=== PATIENT | male | born 1930 | race Caucasian/White ===

== ENCOUNTER 2017-03-08 20:26 | Inpatient (IN) ==
--- OUTSIDE RECORDS SUMMARY | 2017-03-08 20:49 | External Medical Summary | Referral Summary ---
:1930 Author Organization [facility], [address] [place] [id number] Care Team Providers Name Role Phone Niranjan García Primary Care Physician Encounter VC Date(s): 01/27/16 - 01/27/16 [facility] [address] [place] [phone] [place] Discharge Disposition: 01-Home or Self Care Attending Physician: Niranjan García MD Admitting Physician: Niranjan García MD Vital Signs Most recent to oldest [Reference Range]: 1 Temperature Tympanic [36.6-38.1 degC] 37.5 degC (01/27/16 2:15 PM) Peripheral Pulse Rate [60-100 bpm] 84 bpm (01/27/16 2:15 PM) Blood Pressure [90-140/60-90 mmHg] 150/84 mmHg *HI* (01/27/16 2:15 PM) Problem List Condition Effective Dates Status Health Status Informant Actinic keratoses(Confirmed) Active Ataxic gait(Confirmed) Active Basal cell carcinoma of Active skin(Confirmed) Benign hypertension(Confirmed) Active BPPV (benign paroxysmal positional Active vertigo)(Confirmed) Contusion of head(Confirmed) Active CAD(Confirmed) Resolved Carotid artery stenosis(Confirmed) Active Chicken pox(Confirmed) Active Daily headache(Confirmed) Active Chronic lymphocytic Active leukemia(Confirmed) CLL(Confirmed) Active Ear infection(Confirmed) Active Hearing loss(Confirmed) Active High cholesterol(Confirmed) Active Leukemia(Confirmed) Active Overweight(Confirmed) Active Neuropathy, peripheral(Confirmed) Active Primary Active hypercholesterolemia(Confirmed) Chronic lumbar Active radiculopathy(Confirmed) Rheumatoid arthritis(Confirmed) Active Scarlet fever(Confirmed) Active Skin nodule(Confirmed) Active Lumbar spinal stenosis(Confirmed) Active Primary skin squamous cell Active carcinoma(Confirmed) Visit for suture removal(Confirmed) Active TMJ syndrome(Confirmed) Active Allergies, Adverse Reactions, Alerts Substance Reaction Severity Status amoxicillin DIZZY, WEAK, BLURRED VISION Active azithromycin DIZZY, DIARRHEA Active cefTRIAXone weak and shaky Active ciprofloxacin DIZZY/ HEADACHE Active meperidine HTN Active naproxen dizzy Active nitrofurantoin CHILLS, NAUSEA, GI UPSET Active omeprazole INDIGESTION, DIZZY Active piroxicam DISTORTED Active pravastatin WEAK, DIZZY, SWEATY Active sulfamethoxazole DIZZY, HEADACHE Active Tussionex [employer] Active Medications Centrum Silver 1 tablet, Oral, Daily, 0 Refill(s) Start Date: 10/23/13 Status: Orderedfamotidine 20 mg oral tablet 20 mg 1 tabs, Oral, BID, # 60 tabs, 5 Refill(s), Pharmacy: [id number], 1 tabs Oral BID Start Date: 01/27/16 Status: OrderedMisc Medication Daily, Cholestoff, 0 Refill(s) Start Date: 07/27/14 Status: Ordered Results Hematology Most recent to oldest [Reference Range]: 1 WBC [4.8-10.8 10*3/uL] 13.4 10*3/uL *HI* (01/27/16 2:49 PM) RBC [4.60-6.20] 4.63 (01/27/16 2:49 PM) Hgb [14.0-18.0 gm/dL] 15.9 gm/dL (01/27/16 2:49 PM) Hct [42.0-52.0 %] 46.0 % (01/27/16 2:49 PM) MCV [82.0-99.0 fL] 99.4 fL *HI* (01/27/16 2:49 PM) MCH [27.0-32.0 pg] 34.3 pg *HI* (01/27/16 2:49 PM) MCHC [32.0-36.0 gm/dL] 34.6 gm/dL (01/27/16 2:49 PM) RDW [11.5-14.5 %] 13.6 % (01/27/16 2:49 PM) Platelet [150-400 10*3/uL] 163 10*3/uL (01/27/16 2:49 PM) MPV [8.8-14.8 fL] 10.5 fL (01/27/16 2:49 PM) Neutrophils [51-75 %] 20 % *LOW* (01/27/16 2:49 PM) Lymphocytes [20-46 %] 74 % *HI* (01/27/16 2:49 PM) Monocytes [4-11 %] 6 % (01/27/16 2:49 PM) Eosinophils [0-4 %] 0 % (01/27/16 2:49 PM) Basophils [0-2 %] 0 % (01/27/16 2:49 PM) Neutro Absolute [1.90-7.00 10*3] 2.68 10*3 (01/27/16 2:49 PM) Lymph Absolute [0.80-3.30 10*3] 9.92 10*3 *HI* (01/27/16 2:49 PM) [place] Absolute [0.30-1.00 10*3] 0.80 10*3 (01/27/16 2:49 PM) Eos Absolute [0.00-0.50 10*3] 0.00 10*3 (01/27/16 2:49 PM) Baso Absolute [0.00-0.20 10*3] 0.00 10*3 (01/27/16 2:49 PM) Differential Manual *ABN* (01/27/16 2:49 PM) Chemistry Most recent to oldest [Reference Range]: 1 Sodium Lvl [135-144 mEq/L] 141 mEq/L (01/27/16 2:49 PM) Potassium Lvl [3.5-5.2 mEq/L] 4.9 mEq/L (01/27/16 2:49 PM) Chloride [99-111 mEq/L] 105 mEq/L (01/27/16 2:49 PM) CO2 [23-31 mEq/L] 29 mEq/L (01/27/16 2:49 PM) AGAP [3-20] 7 (01/27/16 2:49 PM) BUN [8-26 mg/dL] 19 mg/dL (01/27/16 2:49 PM) Glucose Lvl [70-99 mg/dL] 107 mg/dL *HI* (01/27/16 2:49 PM) Creatinine Lvl [0.72-1.25 mg/dL] 0.95 mg/dL (01/27/16 2:49 PM) eGFR [>60 mL/min] >60 mL/min 1 (01/27/16 2:49 PM) Calcium Lvl [8.9-10.5 mg/dL] 9.3 mg/dL (01/27/16 2:49 PM) Albumin Lvl [3.4-4.8 gm/dL] 4.1 gm/dL (01/27/16 2:49 PM) Total Protein [6.0-7.6 gm/dL] 6.3 gm/dL (01/27/16 2:49 PM) Globulin [1.8-4.0 gm/dL] 2.2 gm/dL (01/27/16 2:49 PM) ALT [0-55 U/L] 13 U/L (01/27/16 2:49 PM) AST [5-34 U/L] 15 U/L (01/27/16 2:49 PM) Alk Phos [40-150 U/L] 94 U/L (01/27/16 2:49 PM) Bili Total [0.2-1.2 mg/dL] 0.4 mg/dL (01/27/16 2:49 PM) Lipase Lvl [8-78 U/L] 13 U/L (01/27/16 2:49 PM) Amylase Lvl [20-160 U/L] 129 U/L (01/27/16 2:49 PM) 1Result Comment: Multiply eGFR results by 1.21 for race.Urinalysis Most recent to oldest [Reference Range]: 1 UA Color Yellow (01/27/16 2:54 PM) UA Appear Clear (01/27/16 2:54 PM) UA pH [5.0-8.0] 6.0 (01/27/16 2:54 PM) UA Leuk Est [Negative] Negative (01/27/16 2:54 PM) UA Nitrite [Negative] Negative (01/27/16 2:54 PM) UA Protein [Negative] Negative (01/27/16 2:54 PM) UA Glucose [Negative] Negative (01/27/16 2:54 PM) UA Ketones [Negative] Trace *ABN* (01/27/16 2:54 PM) UA Urobilinogen [<1.0 mg/dL] 0.2 mg/dL (01/27/16 2:54 PM) UA Bili [Negative] Negative (01/27/16 2:54 PM) UA Blood [Negative] Negative (01/27/16 2:54 PM) UA Spec Grav [1.003-1.030] 1.027 (01/27/16 2:54 PM) Type Clean Catch (01/27/16 2:54 PM) Immunizations Vaccine Date Refusal Reason influenza virus vaccine, inactivated 03/30/15 influenza virus vaccine, inactivated 02/16/14 influenza virus vaccine, live 03/04/13 pneumococcal 13-valent conjugate vaccine 04/28/14 pneumococcal 23-polyvalent vaccine 12/16/08 pneumococcal 23-polyvalent vaccine 06/22/97 tetanus toxoid 10/29/13 tetanus-diphth toxoids (Td) adult/adol 09/30/03 Procedures Procedure Date Related Diagnosis Body Site Low back pain 2011 Spinal stenosis 2011 L3-4 TRANSLAMINAR 03/28/11 CYSTO, URETHRAL ZULEMA/DIL GYDRODISTENTION OF 09/06/09 BLADDER (see conversion doc) Cataract extraction1 2004 Hospital admission for renal contusion 2004 Hospital admission for brown recluse bite 2003 Skin graft to the left thigh 2003 CABG - Coronary artery bypass graft2 2001 Hospital admission for BPPV 2002 Hospital admission for dehydration 2001 repeat TURP - Redo transurethral resection of 2000 prostate Urethral stent inserted 1997 Cholecystectomy 1995 Scar tissue removed from uretha 1991 Cervical laminectomy 1987 TURP - Redo transurethral resection of prostate 1988 Back surgery 1959 tonsillectomy 1935 Cystoscopies and dilatations 1OU, with [id number] bypass Social History Social History Type Response Smoking Status Former smoker; Tobacco use per day: Pack; Number of years: 101 1Quit in 1951 Assessment and Plan Extracted from: Title: Ambulatory Patient Education Author: Niranjan García MD Date: 01/27/16 Surgery Abdominal Pain, Adult Many things can cause belly (abdominal) pain. Most times, the belly pain is not dangerous. Many cases of belly pain can be watched and treated at home. HOME CARE Do not take medicines that help you go poop (laxatives) unless told to by your doctor. Only take medicine as told by your doctor. Eat or drink as told by your doctor. Your doctor will tell you if you should be on a special diet. GET HELP IF: You do not know what is causing your belly pain. You have belly pain while you are sick to your stomach (nauseous) or have runny poop (diarrhea). You have pain while you pee or poop. Your belly pain wakes you up at night. You have belly pain that gets worse or better when you eat. You have belly pain that gets worse when you eat fatty foods. You have a fever. GET HELP RIGHT AWAY IF: The pain does not go away within 2 hours. You keep throwing up (vomiting). The pain changes and is only in the right or left part of the belly. You have bloody or tarry looking poop. MAKE SURE YOU: Understand these instructions. Will watch your condition. Will get help right away if you are not doing well or get worse. This information is not intended to replace advice given to you by your health care provider. Make sure you discuss any questions you have with your health care provider. Document Released: 10/23/2008 Document Revised: 05/28/2015 Document Reviewed: 01/14/2014 [employer] Patient Information 2016 [employer] [facility]. No follow up information was provided. Extracted from: Title: belly pain Author: Niranjan García MD Date: 01/27/16 Impression and Plan Diagnosis Chronic lymphocytic leukemia (REW42-KP C91.10, Working, Medical). Coronary artery disease (QQL67-BH I25.10, Working, Medical). Benign hypertension (TCN61-XS I10, Working, Medical). Lumbar spinal stenosis (EMF20-BL M48.06, Working, Medical). Primary hypercholesterolemia (ZWK09-EV E78.0, Working, Medical). Neuropathy, peripheral (RHD16-WT G62.9, Working, Medical). Abdominal pain (CZK58-NB R10.13, Working, Medical). Fatigue (CXD51-PI R53.83, Working, Medical). Plan: 1) Stop the Naproxen. 2) Stop the aspirin until your belly pain is all better. 3) See me back in one month and as needed. 4) Lab today. 5) Take Famotidine twice a day as prescribed.. Orders Orders (Selected) Outpatient Orders Ordered Office Visit Level 4 Est 85400: Future (On Hold) Amylase Level: CBC w/ Differential: CMP: Lipase Level: Routine Urinalysis: Prescriptions Prescribed famotidine 20 mg oral tablet: 20 mg=1 tabs, Oral, BID, 60 tabs, 5 Refill(s). Dx/Order Association Plan: Diagnosis: Abdominal pain Comment: Ordered: Office Visit Level 4 Est 70594; 01/27/16 14:30:00 CDT, Abdominal pain | Chronic lymphocytic leukemia | Fatigue | Coronary artery disease | Lumbar spinal stenosis | Neuropathy, peripheral | Primary hypercholesterolemia Diagnosis: Benign hypertension Comment: Diagnosis: Chronic lymphocytic leukemia Comment: Ordered: Office Visit Level 4 Est 22616; 01/27/16 14:30:00 CDT, Abdominal pain | Chronic lymphocytic leukemia | Fatigue | Coronary artery disease | Lumbar spinal stenosis | Neuropathy, peripheral | Primary hypercholesterolemia Diagnosis: Coronary artery disease Comment: Ordered: Office Visit Level 4 Est 75989; 01/27/16 14:30:00 CDT, Abdominal pain | Chronic lymphocytic leukemia | Fatigue | Coronary artery disease | Lumbar spinal stenosis | Neuropathy, peripheral | Primary hypercholesterolemia Diagnosis: Fatigue Comment: Ordered: Office Visit Level 4 Est 40741; 01/27/16 14:30:00 CDT, Abdominal pain | Chronic lymphocytic leukemia | Fatigue | Coronary artery disease | Lumbar spinal stenosis | Neuropathy, peripheral | Primary hypercholesterolemia Diagnosis: Lumbar spinal stenosis Comment: Ordered: Office Visit Level 4 Est 24853; 01/27/16 14:30:00 CDT, Abdominal pain | Chronic lymphocytic leukemia | Fatigue | Coronary artery disease | Lumbar spinal stenosis | Neuropathy, peripheral | Primary hypercholesterolemia Diagnosis: Neuropathy, peripheral Comment: Ordered: Office Visit Level 4 Est 79150; 01/27/16 14:30:00 CDT, Abdominal pain | Chronic lymphocytic leukemia | Fatigue | Coronary artery disease | Lumbar spinal stenosis | Neuropathy, peripheral | Primary hypercholesterolemia Diagnosis: Primary hypercholesterolemia Comment: Ordered: Office Visit Level 4 Est 92137; 01/27/16 14:30:00 CDT, Abdominal pain | Chronic lymphocytic leukemia | Fatigue | Coronary artery disease | Lumbar spinal stenosis | Neuropathy, peripheral | Primary hypercholesterolemia Diagnosis: Coronary artery disease Comment: Diagnosis: Primary hypercholesterolemia Comment: Diagnosis: Abdominal pain Comment: Diagnosis: Fatigue Comment: Diagnosis: Abdominal pain Comment: Diagnosis: Chronic lymphocytic leukemia Comment: Diagnosis: Abdominal pain Comment: Diagnosis: Abdominal pain Comment: Diagnosis: Fatigue Comment: Diagnosis: Abdominal pain Comment: Additional Orders: Comment: Ordered: famotidine 20 mg oral tablet,20 mg 1 tabs, Oral, BID, # 60 tabs, 5 Refill(s), Pharmacy: [facility] [id number], 1 tabs Oral BID End of Orders ."
--- OUTSIDE RECORDS SUMMARY | 2017-03-08 20:49 | External Medical Summary | Referral Summary ---
:1930 Author [facility] [address] [place] [address] [place] [address] Care Team Providers Name Role Phone Niranjan García Primary Care Physician Encounter VC Date(s): 01/01/15 - 01/01/15 [facility] [address] [place] [phone] [place] Discharge Disposition: 01-Home or Self Care Attending Physician: Niranjan García MD Admitting Physician: Niranjan García MD Vital Signs Most recent to oldest [Reference Range]: 1 Temperature Tympanic [36.6-38.1 degC] 36.7 degC (01/01/15 3:32 PM) Peripheral Pulse Rate [60-100 bpm] 77 bpm (01/01/15 3:32 PM) Respiratory Rate [14-20 br/min] 18 br/min (01/01/15 3:32 PM) Blood Pressure [90-140/60-90 mmHg] 140/90 mmHg (01/01/15 3:32 PM) SpO2 96 % (01/01/15 3:32 PM) Problem List Condition Effective Dates Status Health Status Informant Actinic keratoses(Confirmed) Active Ataxic gait(Confirmed) Active Basal cell carcinoma of Active skin(Confirmed) Benign hypertension(Confirmed) Active BPPV (benign paroxysmal positional Active vertigo)(Confirmed) Contusion of head(Confirmed) Active CAD(Confirmed) Resolved Carotid artery stenosis(Confirmed) Active Chicken pox(Confirmed) Active Daily headache(Confirmed) Active Chronic lymphocytic Active leukemia(Confirmed) CLL(Confirmed) Active Neuropathy, peripheral(Confirmed) Active Ear infection(Confirmed) Active Hearing loss(Confirmed) Active High cholesterol(Confirmed) Active Leukemia(Confirmed) Active Overweight(Confirmed) Active Primary Active hypercholesterolemia(Confirmed) Chronic lumbar Active [...] DIZZY, HEADACHE Active Tussionex [employer] Active Medications Aleve 220 mg, Oral, Bedtime (once a day), as needed for pain, 0 Refill(s) Start Date: 10/26/14 Status: OrderedAspirin Low Dose 81 mg, Oral, Daily, 0 Refill(s) Start Date: 10/23/13 Status: OrderedCentrum Silver 1 tablet, Oral, Daily, 0 Refill(s) Start Date: 10/23/13 Status: OrderedMisc Medication Daily, Cholestoff, 0 Refill(s) Start Date: 07/27/14 Status: Ordered Results Hematology Most recent to oldest [Reference Range]: 1 Sed Rate [0-15 mm/hr] 7 mm/hr (01/01/15 3:08 PM) Immunizations Vaccine Date Refusal Reason influenza [...] bypass graft2 2001 Hospital admission for BPPV 2001 Hospital admission for dehydration 2001 repeat TURP - Redo transurethral resection of 2000 prostate Urethral stent inserted 1997 Cholecystectomy 1995 Scar tissue removed from uretha 1991 Cervical laminectomy 1987 TURP - Redo transurethral resection of prostate 1988 Back surgery 1959 tonsillectomy 1935 Cystoscopies and dilatations 1OU, with [id number] bypass Social History Social History Type Response Smoking Status Former smoker; Tobacco use per day: Pack; Number of years: 101 1Quit in 1951 Assessment and Plan Extracted from: Title: Ambulatory Patient Education Author: Niranjan García MD Date: 01/01/15 Family Medicine Chronic Lymphocytic Leukemia Chronic lymphocytic leukemia (CLL) is a type of cancer of the bone marrow and blood cells. Bone marrow is the soft, spongy tissue inside your bone. In CLL, the bone marrow makes too many white blood natalie ls that usually fight infection in the body (lymphocytes). CLL usually gets worse slowly and is the most common type of adult leukemia. RISK FACTORS No one knows the exact cause of CLL. There is a higher risk of CLL in people who: Are older than 50 years. Are white. Are male. Have a family history of CLL or other cancers of the lymph system. Are of [place] or [place] descent. Have been exposed to certain chemicals, such as Agent [place] (used in the [place] War) or other herbicides or insecticides. SYMPTOMS At first, there may be no symptoms of chronic lymphocytic leukemia. After a while, some symptoms may occur, such as: Feeling more tired than usual, even after rest. Unplanned weight loss. Heavy sweating at night. Fevers. Shortness of breath. Decreased energy. Paleness. Painless, swollen lymph nodes. A feeling of fullness in the upper left part of the abdomen. Easy bruising or bleeding. More frequent infections. DIAGNOSIS Your health care provider may perform the following exams and tests to diagnose CLL: Physical exam to check for an enlarged spleen, liver, or lymph nodes. Blood and bone marrow tests to identify the presence of cancer cells. These may include tests such as complete blood count, flow cytometry, immunophenotyping, and fluorescence in situ hybridization (FISH). CT scan to look for swelling or abnormalities in your spleen, liver, and lymph nodes. TREATMENT Treatment options for CLL depend on the stage and the presence of symptoms. There are a number of types of treatment used for this condition, including: Observation. Targeted drugs. These are drugs that interfere with chemicals that leukemia cells need in order to grow and multiply. They identify and attack specific cancer cells without harming normal cells. Chemotherapy drugs. These medicines kill cells that are multiplying quickly, such as leukemia cells. Radiation. Surgery to remove the spleen. Biological therapy. This treatment boosts the ability of your own immune system to fight the leukemia cells. Bone marrow or peripheral blood stem cell transplant. This treatment allows the patient to receive very high doses of chemotherapy and/or radiation. These high doses kill the cancer cells but also destroy the bone marrow. After treatment is complete, you are given donor bone marrow or stem cells, which will replace the bone marrow. HOME CARE INSTRUCTIONS Because you have an increased risk of infection, practice good hand washing and avoid being around people who are ill or being in crowded places. Because you have an increased risk of bleeding and bruising, avoid contact sports or other rough activities. Only take [id number] or prescription medicines for pain, discomfort , or fever as directed by your health care provider. Although some of your treatments might affect your appetite, try to eat regular, healthy meals. If you develop any side effects, such as nausea, diarrhea, rash, white patches in your mouth, a sore throat, difficulty swallowing, or severe fatigue, tell your health care provider. He or she may have recommendations of things you can do to improve symptoms. Consider learning some ways to cope with the stress of having a chronic illness, such as yoga, meditation, or participating in a support group. SEEK MEDICAL CARE IF: You develop chest pains. You notice pain, swelling or redness anywhere in your legs. You have pain in your belly (abdomen). You develop new bruises that are getting bigger. You have painful or more swollen lymph nodes. You develop bleeding from your gums, nose, or in your urine or stools. You are unable to stop throwing up (vomiting). You cannot keep liquids down. You feel lightheaded. You have a fever or persistent symptoms for more than 23 days. You develop a severe stiff neck or headache. SEEK IMMEDIATE MEDICAL CARE IF: You have trouble breathing or feel short of breath. You faint. Document Released: 09/23/2009 Document Revised: 01/07/2014 Document Reviewed: 10/30/2013 [facility] Patient Information 2015 [employer] [facility]. This information is not intended to replace advice given to you by your health care provider. Make sure you discuss any questions you have with your health care provider. No follow up information was provided. Extracted from: Title: headache, head contusion, HTN Author: Niranjan García MD Date: Impression and Plan Diagnosis Benign hypertension (ICD9 401.1, Working, Medical). CLL (ICD9 204.10, Working, Medical). Contusion of head (ICD9 920, Working, Medical). Daily headache (ICD9 784.0, Working, Medical). 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 Plan: 1) Get extra rest and take Tylenol as needed for headache. 2) You may need to get your new hearing aids adjusted, if they are causing these headaches. 3) Continue your routine meds otherwise. 4) Return or go to the ER if your headaches don't get better, or if they worsen. 5) See me for a recheck on 01/26/15 as scheduled.. Orders Orders (Selected) Outpatient Orders Ordered CRP High Sensitivity: ESR: Office Visit Level 4 Est 33121: . Dx/Order Association Plan: Diagnosis: Benign hypertension Comment: Ordered: Office Visit Level 4 Est 24094; 01/01/15 16:48:00 CDT, Contusion of head | Daily headache | CLL | Neuropathy, peripheral | Benign hypertension Diagnosis: CLL Comment: Ordered: Office Visit Level 4 Est [id number]; 01/01/15 16:48:00 CDT, Contusion of head | Daily headache | CLL | Neuropathy, peripheral | Benign hypertension Diagnosis: Contusion of head Comment: Ordered: Office Visit Level 4 Est 39586; 01/01/15 16:48:00 CDT, Contusion of head | Daily headache | CLL | Neuropathy, peripheral | Benign hypertension Diagnosis: Daily headache Comment: Ordered: CRP High Sensitivity; Blood, Routine Collect, 01/01/15 15:56:00 CDT, Once, Stop date 01/01/15 15:56:00 CDT, Lab Collect, Daily headache ESR; Blood, Routine Collect, 01/01/15 15:56:00 CDT , Once, Stop date 01/01/15 15:56:00 CDT, Lab Collect, Daily headache Office Visit Level 4 Est 57699; 01/01/15 16:48:00 CDT, Contusion of head | Daily headache | CLL | Neuropathy, peripheral | Benign hypertension Diagnosis: Neuropathy, peripheral Comment: Ordered: Office Visit Level 4 Est 63970; 01/01/15 16:48:00 CDT, Contusion of head | Daily headache | CLL | Neuropathy, peripheral | Benign hypertension End of Orders ."
--- OUTSIDE RECORDS SUMMARY | 2017-03-08 20:49 | External Medical Summary | Referral Summary ---
:1930 Author Organization [facility] Address [address] [place] [address] [place] [id number] Care Team Providers Name Role Phone Niranjan García Primary Care Physician Encounter VC Date(s): 09/02/15 - 09/02/15 [facility] [place] [id number] [place] Discharge Disposition: 01-Home or Self Care Attending Physician: Niranjan García MD Admitting Physician: Niranjan García MD Vital Signs Most recent to oldest [Reference Range]: 1 Temperature Tympanic [36.6-38.1 degC] 36.9 degC (09/02/15 10:24 AM) Peripheral Pulse Rate [60-100 bpm] 88 bpm (09/02/15 10:24 AM) Blood Pressure [90-140/60-90 mmHg] 134/72 mmHg (09/02/15 10:24 AM) Problem List Condition Effective Dates Status Health [...] Refill(s) Start Date: 07/27/14 Status: Ordered Results No data available for this section Immunizations Vaccine Date Refusal Reason influenza virus vaccine, inactivated 03/30/15 influenza virus vaccine, inactivated 02/16/14 influenza virus vaccine, live 03/04/13 pneumococcal 13-valent conjugate vaccine 04/28/14 pneumococcal 23-polyvalent vaccine 12/16/08 pneumococcal 23-polyvalent vaccine 06/22/97 tetanus toxoid 10/29/13 tetanus-diphth toxoids (Td) adult/adol 09/30/03 Procedures Procedure Date Related Diagnosis Body Site Destruction (eg, laser surgery, electrosurgery, 09/02/15 cryosurgery, chemosurgery, surgical curettement), premalignant lesions (eg, actinic keratoses); first lesion Destruction (eg, laser surgery, electrosurgery, 09/02/15 cryosurgery, chemosurgery, surgical curettement), premalignant lesions (eg, actinic keratoses); second through 14 lesions, each (List separately in addition to code for first lesion) Low back pain 2011 Spinal stenosis 2011 L3-4 TRANSLAMINAR 03/28/11 CYSTO, URETHRAL ZULEMA/DIL GYDRODISTENTION OF 09/06/09 BLADDER (see conversion doc) Cataract extraction1 2004 Hospital admission for renal contusion 2004 Hospital admission for brown recluse bite 2004 Skin graft to the left thigh 2003 CABG - Coronary artery bypass graft2 2001 Hospital admission for BPPV 2001 Hospital admission for dehydration 2001 repeat TURP - Redo transurethral resection of 2000 prostate Urethral stent inserted 1997 Cholecystectomy 1995 Scar tissue removed from uretha 1991 Cervical laminectomy 1987 TURP - Redo transurethral resection of prostate 1988 Back surgery 1960 tonsillectomy 1935 Cystoscopies and dilatations 1OU, with [id number] bypass Social History Social History Type Response Smoking Status Former smoker; Tobacco use per day: Pack; Number of years: 101 1Quit in 1951 Assessment and Plan Extracted from: Title: Ambulatory Patient Education Author: Niranjan García MD Date: 09/02/15 Family Medicine Actinic Keratosis Actinic keratosis is a precancerous growth on the skin. This means it could develop into skin cancer if it is not treated. About 1% of actinic keratoses turn into skin cancer within a year. It is import ant to have all such growths removed to prevent them from developing into skin cancer. CAUSES Actinic keratosis is caused by getting too much ultraviolet (UV) radiation from the sun or other UV light sources. RISK FACTORS Factors that increase your chances of getting actinic keratosis include: Having light-colored skin and blue eyes. Having blonde or red hair. Spending a lot of time in the sun. Age. The risk of actinic keratosis increases with age. SYMPTOMS Actinic keratosis growths look like scaly, rough spots of skin. They can be as small as a pinhead or as big as a quarter. They may itch, hurt, or feel sensitive. Sometimes there is a little tag of pink or castro skin growing off them. In some cases, actinic keratoses are easier felt than seen. They do not go away with the use of moisturizing lotions or creams. Actinic keratoses appear most often on area s of skin that get a lot of sun exposure. These areas include the: Scalp. Face. Ears. Lips. Upper back. Backs of the hands. Forearms. DIAGNOSIS Your health care provider can usually tell what is wrong by performing a physical exam. A tissue sample (biopsy) may also be taken and examined under a microscope. TREATMENT Actinic keratosis can be treated several ways. Most treatments can be done in your health care provider's office. Treatment options may include: Curettage. A tool is used to gently scrape off the growth. Cryosurgery. Liquid nitrogen is applied to the growth to freeze it. The growth eventually falls off the skin. Medicated creams, such as 5-fluorouracil or imiquimod. The medicine destroys the cells in the growth. Chemical peels. Chemicals are applied to the growth and the outer layers of skin are peeled off. Photodynamic therapy. A drug that makes your skin more sensitive to light is applied to the skin. A strong, blue light is aimed at the skin and destroys the growth. PREVENTION To prevent future sun damage: Try to avoid the sun between 10:00 a.m. and 4:00 p.m. when it is the strongest. Use a sunscreen or sunblock with SPF 30 or greater. Apply sunscreen at least 30 minutes before exposure to the sun. Always wear protective hats, clothing, and sunglasses with UV protection. Avoid medicines, herbs, and foods that increase your sensitivity to sunlight. Avoid tanning beds. HOME CARE INSTRUCTIONS If your skin was covered with a bandage, change and remove the bandage as directed by your health care provider. Keep the treated area dry as directed by your health care provider. Apply any creams as prescribed by your health care provider. Follow the directions carefully. Check your skin regularly for any changes. Visit a skin doctor ([place]) every year for a skin exam. SEEK MEDICAL CARE IF: Your skin does not heal and becomes irritated, red, or bleeds. You notice any changes or new growths on your skin. This information is not intended to replace advice given to you by your health care provider. Make sure you discuss any questions you have with your health care provider. Document Released: 08/03/2009 Document Revised: 09/21/2014 Document Reviewed: 06/17/2012 ExitCare Patient Information 2015 [employer]. Peripheral Neuropathy Peripheral neuropathy is a type of nerve damage. It affects nerves that carry signals between the spinal cord and other parts of the body. These are called peripheral nerves. With peripheral neuropathy, one nerve or a group of nerves may be damaged. CAUSES Many things can damage peripheral nerves. For some people with peripheral neuropathy, the cause is unknown. Some causes include: Diabetes. This is the most common cause of peripheral neuropathy. Injury to a nerve. Pressure or stress on a nerve that lasts a long time. Too little vitamin B. Alcoholism can lead to this. Infections. Autoimmune diseases, such as multiple sclerosis and systemic lupus erythematosus. Inherited nerve diseases. Some medicines, such as cancer drugs. Toxic substances, such as lead and mercury. Too little blood flowing to the legs. Kidney disease. Thyroid disease. SIGNS AND SYMPTOMS Different people have different symptoms. The symptoms you have will depend on which of your nerves is damaged. Common symptoms include: Loss of feeling (numbness) in the feet and hands. Tingling in the feet and hands. Pain that parish. Very sensitive skin. Weakness. Not being able to move a part of the body (paralysis). Muscle twitching. Clumsiness or poor coordination. Loss of balance. Not being able to control your bladder. Feeling dizzy. Sexual problems. DIAGNOSIS Peripheral neuropathy is a symptom, not a disease. Finding the cause of peripheral neuropathy can be hard. To figure that out, your health care provider will take a medical history and do a physical exa m. A neurological exam will also be done. This involves checking things affected by your brain, spinal cord, and nerves (nervous system). For example, your health care provider will check your reflexes, how you move, and what you can feel. Other types of tests may also be ordered, such as: Blood tests. A test of the fluid in your spinal cord. Imaging tests, such as CT scans or an MRI. Electromyography (EMG). This test checks the nerves that control muscles. Nerve conduction velocity tests. These tests check how fast messages pass through your nerves. Nerve biopsy. A small piece of nerve is removed. It is then checked under a microscope. TREATMENT Medicine is often used to treat peripheral neuropathy. Medicines may include: Pain-relieving medicines. Prescription or sira-wfe-tuswrnu medicine may be suggested. Antiseizure medicine. This may be used for pain. Antidepressants. These also may help ease pain from neuropathy. Lidocaine. This is a numbing medicine. You might wear a patch or be given a shot. Mexiletine. This medicine is typically used to help control irregular heart rhythms. Surgery. Surgery may be needed to relieve pressure on a nerve or to destroy a nerve that is causing pain. Physical therapy to help movement. Assistive devices to help movement. HOME CARE INSTRUCTIONS Only take zlxa-xee-msytiia or prescription medicines as directed by your health care provider. Follow the instructions carefully for any given medicines. Do not take any other medicines without f irst getting approval from your health care provider. If you have diabetes, work closely with your health care provider to keep your blood sugar under control. If you have numbness in your feet: Check every day for signs of injury or infection. Watch for redness, warmth, and swelling. Wear padded socks and comfortable shoes. These help protect your feet. Do not do things that put pressure on your damaged nerve. Do not smoke. Smoking keeps blood from getting to damaged nerves. Avoid or limit alcohol. Too much alcohol can cause a lack of B vitamins. These vitamins are needed for healthy nerves. Develop a good support system. Coping with peripheral neuropathy can be stressful. Talk to a mental health specialist or join a support group if you are struggling. Follow up with your health care provider as directed. SEEK MEDICAL CARE IF: You have new signs or symptoms of peripheral neuropathy. You are struggling emotionally from dealing with peripheral neuropathy. You have a fever. SEEK IMMEDIATE MEDICAL CARE IF: You have an injury or infection that is not healing. You feel very dizzy or begin vomiting. You have chest pain. You have trouble breathing. This information is not intended to replace advice given to you by your health care provider. Make sure you discuss any questions you have with your health care provider. Document Released: 04/27/2003 Document Revised: 01/17/2012 Document Reviewed: 01/12/2014 ExitCare Patient Information 2015 [employer]. No follow up information was provided. Extracted from: Title: AKs, LBP, HTN Author: Niranjan García MD Date: 09/02/15 Impression and Plan Diagnosis Leukemia, chronic lymphocytic (CIE11-BI C91.10, Working, Medical). Benign hypertension (UEB75-BB I10, Working, Medical). Lumbar spinal stenosis (BAU75-LJ M48.06, Working, Medical). Primary hypercholesterolemia (KAF90-AJ E78.0, Working, Medical). Right shoulder pain (OWQ82-ES M25.511, Working, Medical). Peripheral neuropathy (LSH25-PI G62.9, Working, Medical). Actinic keratoses (ZHI96-RV L57.0, Working, Medical). Plan: 1) Liquid nitrogen used to treat 2 AKs: one in each sideburn--using a freeze, thaw, refreeze technique which was well tolerated. 2) Continue your current meds. 3) See me in 3 months and as needed.. Orders Orders (Selected) Outpatient Orders Ordered Destruction premalignant lesion 1st 34023: Destruction premalignant lesion 2-14, Each 14868: Office Visit Level 4 Est 54508: . Dx/Order Association Plan: Diagnosis: Actinic keratoses Comment: Ordered: Destruction premalignant lesion 2-14, Each 17269; 10:50:00 CDT, 25, 1, Actinic keratoses Destruction premalignant lesion 1st 62424; 10:50:00 CDT, 1, Actinic keratoses Diagnosis: Benign hypertension Comment: Ordered: Office Visit Level 4 Est 89931; 09/02/15 10:49:00 CDT, 25, Right shoulder pain | Peripheral neuropathy | Benign hypertension | Lumbar spinal stenosis | Primary hypercholesterolemia Diagnosis: Leukemia, chronic lymphocytic Comment: Diagnosis: Lumbar spinal stenosis Comment: Ordered: Office Visit Level 4 Est 97128; 09/02/15 10:49:00 CDT, 25, Right shoulder pain | Peripheral neuropathy | Benign hypertension | Lumbar spinal stenosis | Primary hypercholesterolemia Diagnosis: Peripheral neuropathy Comment: Ordered: Office Visit Level 4 Est 48502; 09/02/15 10:49:00 CDT, 25, Right shoulder pain | Peripheral neuropathy | Benign hypertension | Lumbar spinal stenosis | Primary hypercholesterolemia Diagnosis: Primary hypercholesterolemia Comment: Ordered: Office Visit Level 4 Est 07992; 09/02/15 10:49:00 CDT, 25, Right shoulder pain | Peripheral neuropathy | Benign hypertension | Lumbar spinal stenosis | Primary hypercholesterolemia Diagnosis: Right shoulder pain Comment: Ordered: Office Visit Level 4 Est 94956; 09/02/15 10:49:00 CDT, 25, Right shoulder pain | Peripheral neuropathy | Benign hypertension | Lumbar spinal stenosis | Primary hypercholesterolemia End of Orders ."
--- OUTSIDE RECORDS SUMMARY | 2017-03-08 20:49 | External Medical Summary | Referral Summary ---
:1930 Author Organization [facility] Address [address] [place] [address] [place] [address] Care Team Providers Name Role Phone Niranjan García Primary Care Physician Encounter VC Date(s): 10/26/14 - 10/26/14 [facility] [place] [phone] [place] Discharge Disposition: 01-Home or Self Care Attending Physician: Niranjan García MD Admitting Physician: Niranjan García MD Vital Signs Most recent to oldest [Reference Range]: 1 Temperature Tympanic [36.6-38.1 degC] 36.9 degC (10/26/14 9:01 AM) Peripheral Pulse Rate [60-100 bpm] 79 bpm (10/26/14 9:01 AM) Respiratory Rate [14-20 br/min] 18 br/min (10/26/14 9:01 AM) Blood Pressure [90-140/60-90 mmHg] 118/72 mmHg (10/26/14 9:01 AM) SpO2 94 % (10/26/14 9:01 AM) Problem List Condition Effective Dates Status Health Status Informant Actinic keratoses(Confirmed) Active Ataxic gait(Confirmed) Active Basal cell carcinoma of Active skin(Confirmed) Benign hypertension(Confirmed) Active BPPV (benign paroxysmal positional Active vertigo)(Confirmed) Contusion of head(Confirmed) Active CAD(Confirmed) Resolved Carotid artery stenosis(Confirmed) Active Chicken pox(Confirmed) Active Daily headache(Confirmed) Active CLL(Confirmed) Active Neuropathy, peripheral(Confirmed) Active Ear infection(Confirmed) Active Hearing loss(Confirmed) Active High cholesterol(Confirmed) Active Leukemia(Confirmed) Active Overweight(Confirmed) Active Primary Active hypercholesterolemia(Confirmed) Chronic lumbar Active radiculopathy(Confirmed) Rheumatoid arthritis(Confirmed) Active Scarlet fever(Confirmed) Active Skin nodule(Confirmed) Active Lumbar spinal stenosis(Confirmed) Active Primary skin squamous cell Active carcinoma(Confirmed) Visit for suture removal(Confirmed) Active Allergies, Adverse Reactions, Alerts Substance Reaction [...] Daily, 0 Refill(s) Start Date: 10/23/13 Status: Orderedmetoprolol tartrate 25 mg oral tablet 0.5 tabs, Oral, Daily, # 45 tabs, 3 Refill(s), Pharmacy: [facility] [id number] Start Date: 04/28/14 Stop Date: 04/23/15 Status: OrderedMisc Medication Daily, Cholestoff, 0 Refill(s) Start Date: 07/27/14 Status: Ordered Results Hematology Most recent to oldest [Reference Range]: 1 WBC [4.8-10.8 10*3/uL] 15.0 10*3/uL *HI* (10/26/14 10:13 AM) RBC [4.60-6.20 10*6/uL] 4.64 10*6/uL (10/26/14 10:13 AM) Hgb [14.0-18.0 gm/dL] 16.0 gm/dL (10/26/14 10:13 AM) Hct [42.0-52.0 %] 45.5 % (10/26/14 10:13 AM) MCV [82.0-99.0 fL] 98.1 fL (10/26/14 10:13 AM) MCH [27.0-32.0 pg] 34.5 pg *HI* (10/26/14 10:13 AM) MCHC [32.0-36.0 gm/dL] 35.2 gm/dL (10/26/14 10:13 AM) RDW [11.5-14.5 %] 13.9 % (10/26/14 10:13 AM) Platelet [150-400 10*3/uL] 150 10*3/uL (10/26/14 10:13 AM) MPV [8.8-14.8 fL] 10.7 fL (10/26/14 10:13 AM) Neutrophils [51-75 %] 30 % *LOW* (10/26/14 10:13 AM) Lymphocytes [20-46 %] 67 % *HI* (10/26/14:13 AM) Monocytes [4-11 %] 2 % *LOW* (10/26/14 10:13 AM) Eosinophils [0-4 %] 1 % (10/26/14 10:13 AM) Basophils [0-2 %] 0 % (10/26/14 10:13 AM) Neutro Absolute [1.90-7.00 10*3] 4.50 10*3 (10/26/14 10:13 AM) Lymph Absolute [0.80-3.30 10*3] 10.05 10*3 *HI* (10/26/14 10:13 AM) Calhoun Absolute [0.30-1.00 10*3] 0.30 10*3 (10/26/14 10:13 AM) Eos Absolute [0.00-0.50 10*3] 0.15 10*3 (10/26/14 10:13 AM) Baso Absolute [0.00-0.20 10*3] 0.00 10*3 (10/26/14 10:13 AM) Differential Manual *ABN* (10/26/14 10:13 AM) Chemistry Most recent to oldest [Reference Range]: 1 Sodium Lvl [135-144 mEq/L] 142 mEq/L (10/26/14 10:13 AM) Potassium Lvl [3.5-5.2 mEq/L] 4.3 mEq/L (10/26/14 10:13 AM) Chloride [99-111 mEq/L] 108 mEq/L (10/26/14 10:13 AM) CO2 [23-31 mEq/L] 26 mEq/L (10/26/14:13 AM) AGAP [3-20] 8 (10/26/14: AM) BUN [8-26 mg/dL] 21 mg/dL (10/26/14: AM) Glucose Lvl [70-99 mg/dL] 110 mg/dL *HI* (10/26/14: AM) Creatinine Lvl [0.72-1.25 mg/dL] 0.96 mg/dL (10/26/14: AM) eGFR [>60 mL/min] >60 mL/min 1 (10/26/14: AM) Calcium Lvl [8.9-10.5 mg/dL] 9.4 mg/dL (10/26/14: AM) Albumin Lvl [3.4-4.8 gm/dL] 3.9 gm/dL (10/26/14: AM) Total Protein [6.2-8.1 gm/dL] 6.3 gm/dL (10/26/14: AM) Globulin [1.8-4.0 gm/dL] 2.4 gm/dL (10/26/14:13 AM) ALT [0-55 U/L] 15 U/L (10/26/14: AM) AST [5-34 U/L] 16 U/L (10/26/14: AM) Alk Phos [40-150 U/L] 95 U/L (10/26/14: AM) Bili Total [0.2-1.2 mg/dL] 0.5 mg/dL (10/26/14:13 AM) Chol [0-199 mg/dL] 212 mg/dL *HI* (10/26/14:13 AM) Trig [0-149 mg/dL] 113 mg/dL (10/26/14:13 AM) HDL [40-84 mg/dL] 52 mg/dL (10/26/14:13 AM) LDL [0-130 mg/dL] 137 mg/dL *HI* (10/26/14: AM) VLDL Cholesterol [0-28 mg/dL] 23 mg/dL (10/26/14 10:13 AM) Cardiac Risk [0.0-5.7] 4.1 (10/26/14 10:13 AM) 1Result Comment: Multiply eGFR results by 1.21 for race.Urinalysis Most recent to oldest [Reference Range]: 1 UA Color DkYellow (10/26/14 10:20 AM) UA Appear Turbid *ABN* (10/26/14 10:20 AM) UA pH [5.0-8.0] 5.0 (10/26/14 10:20 AM) UA Leuk Est [Negative] Pos 2+ *ABN* (10/26/14 10:20 AM) UA Nitrite [Negative] Positive *ABN* (10/26/14 10:20 AM) UA Protein [Negative] Negative (10/26/14 10:20 AM) UA Glucose [Negative] Negative (10/26/14 10:20 AM) UA Ketones [Negative] Negative (10/26/14 10:20 AM) UA Urobilinogen [<1.0 mg/dL] 1.0 mg/dL (10/26/14 10:20 AM) UA Bili [Negative] Negative (10/26/14 10:20 AM) UA Blood [Negative] Trace *ABN* (10/26/14 10:20 AM) UA Spec Grav [1.003-1.030] 1.028 (10/26/14 10:20 AM) Type Clean Catch (10/26/14 10:20 AM) UA WBC [0-4 /HPF] >50 /HPF *ABN* (10/26/14 10:20 AM) UA RBC [0-4] 10-20 *ABN* (10/26/14 10:20 AM) Epithelial Cells 0-2 (10/26/14 10:20 AM) UA Bacteria Numerous *ABN* (10/26/14 10:20 AM) UA Mucous Present (10/26/14 10:20 AM) Microbiology Reports TEST:Urine Culture STATUS:Auth (Verified) BODY SITE: SOURCE:Urine COLLECTED DATE/TIME:10/26/14 10:20 AMUrine CultureEscherichia coli >100,000 cfu/ml ORGANISM:Escherichia coli Immunizations Vaccine Date Refusal Reason influenza virus vaccine, inactivated 03/30/15 influenza virus vaccine, inactivated 02/16/14 influenza virus vaccine, live 03/04/13 pneumococcal 13-valent conjugate vaccine 04/28/14 pneumococcal 23-polyvalent vaccine 12/16/08 pneumococcal 23-polyvalent vaccine 06/22/97 tetanus toxoid 10/29/13 tetanus-diphth toxoids (Td) adult/adol 09/30/03 Procedures Procedure Date Related Diagnosis Body Site Destruction (eg, laser surgery, electrosurgery, 10/26/14 cryosurgery, chemosurgery, surgical curettement), premalignant lesions (eg, actinic keratoses); first lesion Destruction (eg, laser surgery, electrosurgery, 10/26/14 cryosurgery, chemosurgery, surgical curettement), premalignant lesions (eg, [...] tonsillectomy 1935 Cystoscopies and dilatations 1OU, with [id number] bypass Social History Social History Type Response Smoking Status Former smoker; Tobacco use per day: Pack; Number of years: 101 1Quit in 1951 Assessment and Plan Extracted from: Title: Ambulatory Patient Education Author: Niranjan García MD Date: 10/26/14 Family Medicine Actinic Keratosis Actinic keratosis is [...] Backs of the hands. Forearms. DIAGNOSIS Your caregiver can usually tell what is wrong by performing a physical exam. A tissue sample (biopsy ) may also be taken and examined under a microscope. TREATMENT Actinic keratosis can be treated several ways. Most treatments can be done in your caregiver's office. Treatment options may include: Curettage. A [...] remove the bandage as directed by your caregiver. Keep the treated area dry as directed by your caregiver. Apply any creams as prescribed by your caregiver. Follow the directions carefully. Check your skin regularly for any changes. Visit a skin doctor (family law paralegal ) every year for a skin exam. SEEK MEDICAL CARE IF: Your skin does not heal and becomes irritated, red, or bleeds. You notice any changes or new growths on your skin. Document Released: 08/03/2009 Document Revised: 07/29/2012 Document Reviewed: 06/17/2012 [facility] Patient Information 2014 [employer] [facility]. No follow up information was provided. Extracted from: Title: Male physical Author: Niranjan García MD Date: 10/26/14 Impression and Plan Diagnosis Actinic keratoses (ICD9 702.0, Working, Medical). Benign hypertension (ICD9 401.1, Working, Medical). BPPV (benign paroxysmal positional vertigo) (ICD9 386.11, Working, Medical). CAD (ICD9 414.00, Working, Medical). Carotid artery stenosis (ICD9 433.10, Working, Medical). Chronic lumbar radiculopathy (ICD9 724.4, Working, Medical). CLL (ICD9 204.10, Working, Medical). High cholesterol (ICD9 272.0, Working, Medical). Lumbar spinal stenosis (ICD9 724.02, Working, Medical). 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 Plan: You should get the Twinrix (hepatitis A and B) vaccine [facility]. Get lab today. Continue your current meds. See me in 3 months and as needed. , I recommend eulalio t you stop Aleve. May take Tylenol if you need it for pain., We treated 2 actinic keratoses of your face with liquid nitrogen, using a freeze, thaw, refreeze technique which was tolerated OK. , Schedu le an ultrasound (carotid Doppler exam) of the carotid arteries at the lab desk.. Orders Orders (Selected) Outpatient Orders Ordered Destruction premalignant lesion : Destruction premalignant lesion 2-14, Each : Office Visit Level 5 Est 44546: Future (On Hold) CBC w/ Differential: CMP: Carotid Duplex US Bilateral: Lipid Panel: Routine Urinalysis: . Dx/Order Association Plan: Diagnosis: Actinic keratoses Comment: Ordered: Destruction premalignant lesion 2-14, Each [id number]; 9:48:00 CDT, 1, Actinic keratoses Destruction premalignant lesion 1st 88191; 9:48:00 CDT, 1, Actinic keratoses Modified: Office Visit Level 5 Est [id number]; 10/26/14 9:40:00 CDT, 25, CLL | CAD | Carotid artery stenosis | Actinic keratoses | Benign hypertension Diagnosis: BPPV (benign paroxysmal positional vertigo) Comment: Modified: Office Visit Level 5 Est [id number]; 10/26/14 9:40:00 CDT, 25, CLL | CAD | Carotid artery stenosis | Actinic keratoses | Benign hypertension Diagnosis: Benign hypertension Comment: Modified: Office Visit Level 5 Est [id number]; 10/26/14 9:40:00 CDT, 25, CLL | CAD | Carotid artery stenosis | Actinic keratoses | Benign hypertension Diagnosis: CAD Comment: Modified: Office Visit Level 5 Est [id number]; 10/26/14 9:40:00 CDT, 25, CLL | CAD | Carotid artery stenosis | Actinic keratoses | Benign hypertension Diagnosis: CLL Comment: Modified: Office Visit Level 5 Est [id number]; 10/26/14 9:40:00 CDT, 25, CLL | CAD | Carotid artery stenosis | Actinic keratoses | Benign hypertension Diagnosis: Carotid artery stenosis Comment: Modified: Office Visit Level 5 Est [id number]; 10/26/14 9:40:00 CDT, 25, CLL | CAD | Carotid artery stenosis | Actinic keratoses | Benign hypertension Diagnosis: Chronic lumbar radiculopathy Comment: Modified: Office Visit Level 5 Est [id number]; 10/26/14 9:40:00 CDT, 25, CLL | CAD | Carotid artery stenosis | Actinic keratoses | Benign hypertension Diagnosis: High cholesterol Comment: Modified: Office Visit Level 5 Est [id number]; 10/26/14 9:40:00 CDT, 25, CLL | CAD | Carotid artery stenosis | Actinic keratoses | Benign hypertension Diagnosis: Lumbar spinal stenosis Comment: Modified: Office Visit Level 5 Est 53005; 10/26/14 9:40:00 CDT, 25, CLL | CAD | Carotid artery stenosis | Actinic keratoses | Benign hypertension Diagnosis: Neuropathy, peripheral Comment: Modified: Office Visit Level 5 Est [id number]; 10/26/14 9:40:00 CDT, 25, CLL | CAD | Carotid artery stenosis | Actinic keratoses | Benign hypertension Additional Orders: Comment: Ordered: Aleve,220 mg, Oral, Bedtime (once a day), as needed for pain, 0 Refill(s) Future Orders: CBC w/ Differential,Blood, Routine Collect, , Once, Lab Collect, CLL, Order for future visit Future Orders: CMP,Blood, Routine Collect, 10/26/14, Once, Lab Collect, Benign hypertension, Order for future visit Future Orders: Carotid Duplex US Bilateral,*Est. 10/26/14 due within 1 months, Routine, Reason: Carotid stenosis, Carotid artery stenosis | CAD Future Orders: Lipid Panel,Blood, Routine Collect, 10/26/14, Once , Lab Collect, High cholesterol, Order for future visit Future Orders: Routine Urinalysis,Urine, Routine collect, 10/26/14 , Once, Nurse Collect Non-Blood, Benign hypertension, Order for future visit End of Orders ."
--- OUTSIDE RECORDS SUMMARY | 2017-03-08 20:49 | External Medical Summary | Referral Summary ---
:1930 Author [facility] Address [address] [place] [address] [place] [address] Care Team Providers Name Role Phone Niranjan García Primary Care Physician Encounter VC Date(s): 02/04/15 - 02/04/15 [facility] [place] [phone] [place] Discharge Disposition: 01-Home or Self Care Attending Physician: Niranjan García MD Admitting Physician: Niranjan García MD Vital Signs Most recent to oldest [Reference Range]: 1 Temperature Tympanic [36.6-38.1 degC] 36.4 degC *LOW* (02/04/15 11:17 AM) Peripheral Pulse Rate [60-100 bpm] 72 bpm (02/04/15 11:17 AM) Blood Pressure [90-140/60-90 mmHg] 108/68 mmHg (02/04/15 11:17 AM) SpO2 94 % (02/04/15 11:17 AM) Problem List Condition Effective Dates Status [...] extraction1 2004 Hospital admission for renal contusion 2005 Hospital admission for brown recluse bite 2004 Skin graft to the left thigh 2004 CABG - Coronary artery bypass graft2 2002 Hospital admission for BPPV 2002 Hospital admission for dehydration 2001 repeat TURP - Redo transurethral resection of 2000 prostate Urethral stent inserted 1997 Cholecystectomy 1995 Scar tissue removed from uretha 1991 Cervical laminectomy 1987 TURP - Redo transurethral resection of prostate 1987 Back surgery 1959 tonsillectomy 193 Cystoscopies and dilatations 1OU, with [id number] bypass Social History Social History Type Response Smoking Status Former smoker; Tobacco use per day: Pack; Number of years: 101 1Quit in 1951 Assessment and Plan Extracted from: Title: Ambulatory Patient Education Author: Niranjan García MD Date: 02/04/15 Family Medicine Basal Cell Carcinoma Basal cell carcinoma is the most common form of skin cancer. It begins in the basal cells, which are at the bottom of the outer skin layer (epidermis). CAUSES Sun exposure is the most common cause of basal cell carcinoma. Basal cell carcinoma occurs most often on parts of the body that are frequently exposed to the sun, including the: Scalp. Ears. Neck. Face. Arms. Backs of the hands. Legs. However, basal cell carcinoma can occur anywhere on the body. Rarely, tumors develop on areas not exposed to the sun. Other causes of basal cell carcinoma can include: Exposure to arsenic. Exposure to radiation. Certain genetic syndromes, such as xeroderma pigmentosum. RISK FACTORS People at highest risk for basal cell carcinoma include those with: Fair skin. Blonde or red hair. Blue, green, or castro eyes. Childhood freckling. Factors that increase your risk for basal cell carcinoma include: Sun exposure over long periods of time. Childhood sun exposure appears to be a more significant factor than sun exposure as an adult. Repeated sunburns. Use of tanning beds. Having a weakened immune system. SYMPTOMS Five signs of basal cell carcinoma are: An open sore that bleeds, oozes, or crusts. The sore may remain open for 3 or more weeks. This can be an early sign of basal cell carcinoma. Basal cell carcinoma can mimic a pimple that will not heal. A reddish or irritated area which may crust, itch, or cause discomfort. This may occur on areas expose d to the sun. These patches might be easier felt than seen. A shiny, pearly, or translucent bump that is pink, red, or white. The bump may also be kasper, black, or brown, especially in dark haired people. These bumps can be confused with moles. A pink growth with a slightly elevated, rolled border, and a crusted indentation in the center. As the growth slowly enlarges, tiny blood vessels may develop on the surface. A scar-like white, yellow, or waxy area that looks like shiny, stretched skin. It often has irregular borders. This may be a sign of more aggressive basal cell carcinoma. DIAGNOSIS Your caregiver may be able to tell what is wrong by doing a physical exam. Often, a tissue sample (biopsy) is also taken. The tissue is examined under a microscope. TREATMENT The treatment for basal cell carcinoma depends on the type, size, location, and number of tumors. Possible treatments include: Mohs surgery. This is a procedure done by a skin doctor (production metal sprayer or Mohs surgeon) in his or her office. The cancerous cells are removed layer by layer. This treatment has a high cure rate. Surgical removal of the tumor. Freezing the tumor with liquid nitrogen (cryosurgery). Plastic surgery to remove the tumor, in the case of large tumors. Radiation. This may be used for tumors on the face. Photodynamic therapy. A chemical cream is applied to the skin and light exposure is used to activate the chemical. Chemical treatments, such as imiquimod cream and interferon injections. This may be used to remove superficial tumors with minimal scarring. Electrodesiccation and curettage. This involves alternately scraping and burning the tumor, using an electric current to control bleeding. Basal cell carcinoma can almost always be cured. It rarely spreads to other areas of the body (metastasizes). Basal cell carcinoma may come back at the same location (recur), but it can be treated again if this occurs. PREVENTION Avoid the sun between 10:00 a.m. and 4:00 pm when it is the strongest. Use a sunscreen or sunblock with a sun protection factor of 30 or greater. Apply sunscreen at least 30 minutes before exposure to the sun. Reapply sunscreen every 2 to 4 hours while you are outside, after swimming , and after excessive sweating. Always wear protective hats, clothing, and sunglasses with ultraviolet protection. Avoid tanning beds. HOME CARE INSTRUCTIONS Avoid unprotected sun exposure. Follow your caregiver's instructions for self-exams. Look for new spots or changes in your skin. Keep all follow-up appointments as directed by your caregiver. SEEK MEDICAL CARE IF: You notice any new spots or changes in your skin. You have had a basal cell carcinoma tumor removed and you notice a new growth in the same location. Document Released: 11/11/2003 Document Revised: 11/05/2012 Document Reviewed: 01/29/2012 [employer] Patient Information 2015 [employer]. This information is not intended to replace advice given to you by your health care provider. Make sure you discuss any questions you have with your health care provider. No follow up information was provided. Extracted from: Title: basal cell carcinoma, suture removal Author: Niranjan García MD Date : 02/04/15 Impression and Plan Diagnosis Basal cell carcinoma of skin (ICD9 173.91, Working, Medical). Visit for suture removal (ICD9 V58.32, Working, Medical). Plan: About 1/2 of the sutures were removed today. The incision looks good, without infection. No dressing needed any more. See me in one week for the rest of the sutures to be removed.. Orders Orders (Selected) Outpatient Orders Ordered Postoperative Est [id number]: . Dx/Order Association Plan: Diagnosis: Basal cell carcinoma of skin Comment: Ordered: Postoperative Est [id number]; 02/04/15 12:06:00 CDT, Basal cell carcinoma of skin | Visit for suture removal Diagnosis: Visit for suture removal Comment: Ordered: Postoperative Est [id number]; 02/04/15 12:06:00 CDT, Basal cell carcinoma of skin | Visit for suture removal End of Orders ."
--- OUTSIDE RECORDS SUMMARY | 2017-03-08 20:49 | External Medical Summary | Referral Summary ---
:1930 [facility] Address [address] [place] [address] [place] [address] Care Team Providers Name Role Phone Niranjan García Primary Care Physician Encounter VC Date(s): 01/26/15 - 01/26/15 [facility] [place] [phone] [place] Discharge Disposition: 01-Home or Self Care Attending Physician: Niranjan García MD Vital Signs Most recent to oldest [Reference Range]: 1 Temperature Tympanic [36.6-38.1 degC] 37.2 degC (01/26/15 1:15 PM) Peripheral Pulse Rate [60-100 bpm] 79 bpm (01/26/15 1:15 PM) Blood Pressure [90-140/60-90 mmHg] 112/72 mmHg (01/26/15 1:15 PM) SpO2 94 % (01/26/15 1:15 PM) Problem List Condition Effective Dates Status [...] 1 WBC [4.8-10.8 10*3/uL] 13.4 10*3/uL *HI* (01/26/15 2:05 PM) RBC [4.60-6.20] 4.62 (01/26/15 2:05 PM) Hgb [14.0-18.0 gm/dL] 15.8 gm/dL (01/26/15 2:05 PM) Hct [42.0-52.0 %] 45.3 % (01/26/15 2:05 PM) MCV [82.0-99.0 fL] 98.1 fL (01/26/15 2:05 PM) MCH [27.0-32.0 pg] 34.2 pg *HI* (01/26/15 2:05 PM) MCHC [32.0-36.0 gm/dL] 34.9 gm/dL (01/26/15 2:05 PM) RDW [11.5-14.5 %] 13.4 % (01/26/15 2:05 PM) Platelet [150-400 10*3/uL] 160 10*3/uL (01/26/15 2:05 PM) MPV [8.8-14.8 fL] 10.9 fL (01/26/15 2:05 PM) Neutrophils [51-75 %] 22 % *LOW* (01/26/15 2:05 PM) Lymphocytes [20-46 %] 75 % *HI* (01/26/15 2:05 PM) Monocytes [4-11 %] 3 % *LOW* (01/26/15 2:05 PM) Eosinophils [0-4 %] 0 % (01/26/15 2:05 PM) Basophils [0-2 %] 0 % (01/26/15 2:05 PM) Neutro Absolute [1.90-7.00 10*3] 2.95 10*3 (01/26/15 2:05 PM) Lymph Absolute [0.80-3.30 10*3] 10.05 10*3 *HI* (01/26/15 2:05 PM) [place] Absolute [0.30-1.00 10*3] 0.40 10*3 (01/26/15 2:05 PM) Eos Absolute [0.00-0.50 10*3] 0.00 10*3 (01/26/15 2:05 PM) Baso Absolute [0.00-0.20 10*3] 0.00 10*3 (01/26/15 2:05 PM) Differential Manual *ABN* (01/26/15 2:05 PM) Immunizations Vaccine Date Refusal Reason influenza virus vaccine, inactivated 03/30/15 influenza virus vaccine, inactivated 02/16/14 influenza virus vaccine, live 03/04/13 pneumococcal 13-valent conjugate vaccine 04/28/14 pneumococcal 23-polyvalent vaccine 12/16/08 pneumococcal 23-polyvalent vaccine 06/22/97 tetanus toxoid 10/29/13 tetanus-diphth toxoids (Td) adult/adol 09/30/03 Procedures Procedure Date Related Diagnosis Body Site Low back pain 2011 Spinal stenosis 2012 L3-4 TRANSLAMINAR 03/28/11 CYSTO, URETHRAL ZULEMA/DIL GYDRODISTENTION OF 09/06/09 BLADDER (see conversion doc) Cataract extraction1 2004 Hospital admission for renal contusion 2004 Hospital admission for brown recluse bite 2003 Skin graft to the left thigh 2003 CABG - Coronary artery bypass graft2 2002 Hospital admission for BPPV 2002 Hospital admission for dehydration 2002 repeat TURP - Redo transurethral resection of 2000 prostate Urethral stent inserted 1997 Cholecystectomy 1995 Scar tissue removed from uretha 1991 Cervical laminectomy 1987 TURP - Redo transurethral resection of prostate 1987 Back surgery 1960 tonsillectomy 1935 Cystoscopies and dilatations 1OU, with [id number] bypass Social History Social History Type Response Smoking Status Former smoker; Tobacco use per day: Pack; Number of years: 101 1Quit in 1951 Assessment and Plan Extracted from: Title: Ambulatory Patient Education Author: Niranjan García MD Date: 01/26/15 Family Medicine Ataxia You have an unsteady walk called ataxia. Your condition may require further tests. Ataxia can be caused by: Neurological conditions. Infections. Physical exhaustion. Internal bleeding. Alcohol intoxication, or medication side effects. Problems with circulation, blood pressure, and heart disease can also make you unsteady. Laboratory and X-ray tests may be needed. Treatment for now: Get plenty of rest and eat a nutritious diet over the next weeks. Avoid alcohol. If you become very unsteady, dizzy, nauseated, or feel like you are going to faint, lie down flat right away. Wait until all your symptoms pass before you get up again. SEEK IMMEDIATE MEDICAL CARE IF: You develop severe unsteadiness, headache, chest pain, or abdominal pain. You have weakness or numbness on one side of your body. You have problems with your vision. You develop confusion or difficulty speaking. You have a fever, chills, or an irregular heartbeat or a very fast pulse. MAKE SURE YOU: Understand these instructions. Will watch your condition. Will get help right away if you are not doing well or get worse. Document Released: 05/07/2006 Document Revised: 07/29/2012 Document Reviewed: 10/24/2007 [employer] Patient Information 2015 [employer]. This information is not intended to replace advice given to you by your health care provider. Make sure you discuss any questions you have with your health care provider. Coronary Artery Disease Coronary artery disease (CAD) is a process in which the heart (coronary) arteries narrow or become blocked from the development of atherosclerosis. Atherosclerosis is a disease in which plaque builds up on the inside of the heart arteries (coronary arteries). Plaque is made up of fats (lipids), cholesterol, calcium, and fibrous tissue. CAD can lead to a heart attack (myocardial infarction, PA). An PA can lead to heart failure, cardiogenic shock, or sudden cardiac . CAD can cause an PA through: Plaque buildup that can severely narrow or block the coronary arteries and diminish blood flow. Plaque that can become unstable and "rupture." Unstable plaque that ruptures within a coronary artery can form a clot and cause a sudden (acute) blockage. RISK FACTORS Many risk factors contribute to the development of CAD. These include: High cholesterol (dyslipidemia) levels. High blood pressure (hypertension). Smoking. Diabetes. Age. Gender. Men can develop CAD earlier in life than women. Family history. Inactivity or lack of regular physical or aerobic exercise. A diet high in saturated fats. Chronic kidney disease. SYMPTOMS When a coronary artery is narrowed or blocked, an PA can occur. PA symptoms can include: Chest pain (agina). Angina can occur by itself or it can also occur with pain in the neck, arm, jaw, or in the upper, middle back (mid-scapular pain). Profuse sweating (diaphoresis) without physical activity or movement. Shortness of breath (dyspnea). Irregular heartbeats (palpitations) that feel like your heart is skipping beats or is beating very fast. Nausea. Epigastric pain. Epigastric pain may occur as "heartburn." Tiredness (malaise). This can especially be present in the elderly. Women can have different (atypical) symptoms other than classic angina. DIAGNOSIS The diagnosis of CAD may include: An electrocardiography (ECG). An ECG does not diagnose CAD, but it is usefull in the detection of a sudden (acute) PA or as a marker for a previous PA. Depending on which heart (coronary) artery ma y be blocked, an ECG may not cotton picking machine operator an PA pattern. Exercise stress test. A stress test can be performed at rest for people who are unable to do an exercise stress test. A stress test will only be abnormal if one or more of the large coronary arteries is significantly blocked. Blood tests. Tests may include samples to detect heart muscle damage ( such as troponin levels). Other tests may include cholesterol checks and an inflammation test (high-sensitivity C-reactive protein, hs-CRP). Coronary angiography. Screening people who have peripheral vascular disease (PAD). These people often times have CAD. TREATMENT The treatment of CAD includes the following: Lifestyle changes such as: Following a heart-healthy diet. A registered dietitian can you help educate you on healthy food options and changes. Quiting smoking. Following an exercise program approved by your caregiver. Maintaining a healthy weight. Lose weight as approved by your caregiver. Medicines to help control your blood pressure, cholesterol level, angina, and blood clotting. Medicines may include beta-blockers, CHRISSY inhibitors, statins , nitrates, and anti-platelet medicines. If you have a heart stent and are taking anti-platelet medicine, it is important to not suddenly stop taking this medicine. Suddenly stopping anti- platelet medicine can result in an PA. Talk with y our caregiver before stopping medicine or if you cannot afford your medicine. If the coronary arteries are significantly blocked, surgery may be needed. This can include: Percutaneous coronary intervention (PCI) with or without stent placement. Coronary artery bypass graft surgery (CABG). SEEK IMMEDIATE MEDICAL CARE IF: You develop PA symptoms. This is a medical emergency. Get help at once. Call your local emergency service (911 in the [place] immediately. Do not drive yourself to the clinic or hospital. PA symptoms can include: Angina or pain that occurs in the neck, arm, jaw, or in the upper middle back. Profuse sweating without cause. Shortness of breath or difficulty breathing without cause. Unexplained nausea or epigastric pain that feels like heartburn. Document Released: 07/29/2012 Document Reviewed: 07/29/2012 [facility] Patient Information 2015 [facility]. This information is not intended to replace advice given to you by your health care provider. Make sure you discuss any questions you have with your health care provider. No follow up information was provided. 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 CAD (ICD9 414.00, Working, Medical). CLL (ICD9 204.10, Working, Medical). 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 Primary hypercholesterolemia (ICD9 272.0, Working, Medical). Skin nodule (ICD9 782.2, Working, Medical). Plan: 1) Skin lesion removal scheduled for the suspicious skin lesion on the top of the right shoulder. 2) Continue your routine meds otherwise. 3) Lab today: CBC. . Orders Orders (Selected) Outpatient Orders Ordered CBC w/ Differential: Office Visit Level 4 Est 08487: . Dx/Order Association Plan: Diagnosis: Ataxic gait Comment: Modified: Office Visit Level 4 Est [id number]; 01/26/15 13:53:00 CDT, Skin nodule | Primary hypercholesterolemia | CLL | Neuropathy, peripheral | CAD Diagnosis: CAD Comment: Modified: Office Visit Level 4 Est [id number]; 01/26/15 13:53:00 CDT, Skin nodule | Primary hypercholesterolemia | CLL | Neuropathy, peripheral | CAD Diagnosis: CLL Comment: Ordered: CBC w/ Differential; Blood, Routine Collect, 01/26/15 13 :57:00 CDT, Once, Stop date 01/26/15 13:57:00 CDT, Lab Collect, CLL Modified: Office Visit Level 4 Est [id number]; 01/26/15 13:53:00 CDT, Skin nodule | Primary hypercholesterolemia | CLL | Neuropathy, peripheral | CAD Diagnosis: Neuropathy, peripheral Comment: Modified: Office Visit Level 4 Est [id number]; 01/26/15 13:53:00 CDT, Skin nodule | Primary hypercholesterolemia | CLL | Neuropathy, peripheral | CAD Diagnosis: Primary hypercholesterolemia Comment: Modified: Office Visit Level 4 Est [id number]; 01/26/15 13:53:00 CDT, Skin nodule | Primary hypercholesterolemia | CLL | Neuropathy, peripheral | CAD Diagnosis: Skin nodule Comment: Modified: Office Visit Level 4 Est [id number]; 01/26/15 13:53:00 CDT, Skin nodule | Primary hypercholesterolemia | CLL | Neuropathy, peripheral | CAD End of Orders .
--- OUTSIDE RECORDS SUMMARY | 2017-03-08 20:49 | External Medical Summary | Referral Summary ---
:1930 [facility] Address [address] [place] [address] [place] [address] Care Team Providers Name Role Phone Niranjan García Primary Care Physician Encounter VC Date(s): 02/29/16 - 02/29/16 [facility] [place] [phone] [place] Discharge Diagnosis: Chronic lymphocytic leukemia Discharge Diagnosis: Fatigue Discharge Diagnosis: Need for influenza vaccination Discharge Diagnosis: Epigastric abdominal pain Discharge Diagnosis: Coronary artery disease Discharge Diagnosis: Polyneuropathy Discharge Diagnosis: Lumbar spinal stenosis Discharge Diagnosis: Benign hypertension Discharge Diagnosis: Primary hypercholesterolemia Discharge Disposition: 01-Home or Self Care Attending Physician: Niranjan García MD Admitting Physician: Niranjan García MD Vital Signs Most recent to oldest [Reference Range]: 1 Temperature Tympanic [36.6-38.1 degC] 36.8 degC (02/29/16 12:44 PM) Peripheral Pulse Rate [60-100 bpm] 92 bpm (02/29/16 12:44 PM) Respiratory Rate [14-20 br/min] 20 br/min (02/29/16 12:44 PM) Blood Pressure [90-140/60-90 mmHg] 122/70 mmHg (02/29/16 12:44 PM) Problem List Condition Effective Dates Status [...] Date Refusal Reason influenza virus vaccine, inactivated 02/29/16 influenza virus vaccine, inactivated 03/30/15 influenza virus [...] tonsillectomy 193 Cystoscopies and dilatations 1OU, with [id number] bypass Social History Social History Type Response Smoking Status Former smoker; Tobacco use per day: Pack; Number of years: 101 1Quit in 1951 Assessment and Plan Extracted from: Title: Ambulatory Patient Education Author: Niranjan García MD Date: Cardiovascular Coronary Artery Disease, Male Coronary artery disease (CAD) is a process in which the blood vessels of the heart (coronary arteries) become narrow or blocked. The narrowing or blockage can lead to decreased blood flow to the heart m uscle (angina). Prolonged reduced blood flow can cause a heart attack ( myocardial infarction, OK). Because CAD is the leading cause of in men, it is important to understand what causes this condition and how it is treated. CAUSES Atherosclerosis is the cause of CAD. This is the buildup of fat and cholesterol (plaque) on the inside of the arteries. Over time, the plaque may narrow or block the artery, and this will lessen blood f low to the heart. Plaque can also become weak and break off within a coronary artery to form a clot and cause a sudden blockage. RISK FACTORS Many risk factors increase your chances of getting CAD, including: High cholesterol levels. High blood pressure (hypertension). Tobacco use. Diabetes. Age. Men over age 45 are at a greater risk of CAD. Gender. Men often develop CAD earlier in life than women. Family history of CAD. Obesity. Lack of exercise. A diet high in saturated fats. SYMPTOMS Many people do not experience any symptoms during the early stages of CAD. As the condition progresses, symptoms may include: Chest pain. The pain can be described as a crushing or squeezing in the chest, or a tightness, pressure, fullness, or heaviness in the chest. The pain can last more than a few minutes or can stop and recur. Pain in the arms, neck, jaw, or back. Unexplained heartburn or indigestion. Shortness of breath. Nausea. Sudden cold sweats. Less common symptoms of CAD in men can include: Fatigue. Unexplained feelings of nervousness or anxiety. Weakness. Diarrhea. Sudden light-headedness. DIAGNOSIS Tests to diagnose CAD may include: ECG (electrocardiogram). Exercise stress test. This looks for signs of blockage when the heart is being exercised. Pharmacologic stress test. This test looks for signs of blockage when the heart is being stressed with a medicine. Blood tests. Coronary angiogram. This is a procedure to look at the coronary arteries to see if there is any blockage. TREATMENT The treatment of CAD may include the following: Healthy behavioral changes to reduce or control risk factors. Medicine. Coronary stenting.A stent helps to keep an artery open. Coronary angioplasty. This procedure widens a narrowed or blocked artery. Coronary arterybypass surgery. This will allow your blood to pass the blockage (bypass) to reach your heart. HOME CARE INSTRUCTIONS Take medicines only as directed by your health care provider. Do not take the following medicines unless your health care provider approves: Nonsteroidal anti-inflammatory drugs (NSAIDs), such as ibuprofen, naproxen, or celecoxib. Vitamin supplements that contain vitamin A, vitamin E, or both. Manage other health conditions such as hypertension and diabetes as directed by your health care provider. Follow a heart-healthy diet. A dietitian can help to educate you about healthy food options and changes. Use healthy cooking methods such as roasting, grilling, broiling, baking , poaching, steaming, or stir-frying. Talk to a dietitian to learn more about healthy cooking methods. Follow an exercise program approved by your health care provider. Maintain a healthy weight. Lose weight as approved by your health care provider. Plan rest periods when fatigued. Learn to manage stress. Do not use any tobacco products, including cigarettes, chewing tobacco, or electronic cigarettes. If you need help quitting, ask your health care provider. If you drink alcohol, and your health care provider approves, limit your alcohol intake to no more than 1 drink per day. One drink equals 12 ounces of beer, 5 ounces of wine, or 1 ounces of hard liquor. Stop illegal drug use. Your health care provider may ask you to monitor your blood pressure. A blood pressure reading consists of a higher number over a lower number, such as 110 over 72, which is written as 110/72. Ideally, your blood pressure should be: Below 140/90 if you have no other medical conditions. Below 130/80 if you have diabetes or kidney disease. Keep all follow-up visits as directed by your health care provider. This is important. SEEK IMMEDIATE MEDICAL CARE IF: You have pain in your chest, neck, arm, jaw, stomach, or back that lasts more than a few minutes, is recurring, or is unrelieved by taking medicine under your tongue (sublingualnitroglycerin). You have profuse sweating without cause. You have unexplained: Heartburn or indigestion. Shortness of breath or difficulty breathing. Nausea or vomiting. Fatigue. Feelings of nervousness or anxiety. Weakness. Diarrhea. You have sudden light-headedness or dizziness. You faint. These symptoms may represent a serious problem that is an emergency. Do not wait to see if the symptoms will go away. Get medical help right away. Call your local emergency services (911 in the [place] Do not drive yourself to the hospital. This information is not intended to replace advice given to you by your health care provider. Make sure you discuss any questions you have with your health care provider. Document Released: 12/02/2014 Document Reviewed: 12/02/2014 [facility] Patient Information 2016 [employer]. No follow up information was provided. Extracted from: Title: several medical problems Author: Niranjan García MD Date: 02/29/16 Impression and Plan Diagnosis Chronic lymphocytic leukemia (WZP60-JD C91.10, Discharge, Medical). Benign hypertension ([id number] I10, Discharge, Medical). Lumbar spinal stenosis (ALR76-PK M48.06, Discharge, Medical). Primary hypercholesterolemia (KAR29-XV E78.0, Discharge, Medical). Epigastric abdominal pain (BTI59-VO R10.13, Discharge, Medical). Fatigue (JIL99-NR R53.83, Discharge, Medical). Coronary artery disease (VVY43-MM I25.10, Discharge, Medical). Polyneuropathy (XPB34-QF G62.9, Discharge, Medical). Need for influenza vaccination ([id number] Z23, Discharge, Medical). Plan: 1) Flu shot given today. 2) Continue your present meds. 3) See me in 3 months and as needed.. Orders Orders (Selected) Outpatient Orders Ordered Office Visit Level 4 Est [id number]: Completed influenza virus vaccine, inactivated: 0.5 mL, IntraMuscular, Once. Dx/Order Association Plan: Diagnosis: Benign hypertension Comment: Ordered: Office Visit Level 4 Est [id number]; 02/29/16 13:00:00 CDT, Epigastric abdominal pain | Lumbar spinal stenosis | Benign hypertension | Coronary artery disease | Polyneuropathy | Primar y hypercholesterolemia | Chronic lymphocytic leukemia | Fatigue | Need for influenza vaccination Diagnosis: Chronic lymphocytic leukemia Comment: Ordered: Office Visit Level 4 Est [id number]; 02/29/16 13:00:00 CDT, Epigastric abdominal pain | Lumbar spinal stenosis | Benign hypertension | Coronary artery disease | Polyneuropathy | Primar y hypercholesterolemia | Chronic lymphocytic leukemia | Fatigue | Need for influenza vaccination Diagnosis: Coronary artery disease Comment: Ordered: Office Visit Level 4 Est [id number]; 02/29/16 13:00:00 CDT, Epigastric abdominal pain | Lumbar spinal stenosis | Benign hypertension | Coronary artery disease | Polyneuropathy | Primar y hypercholesterolemia | Chronic lymphocytic leukemia | Fatigue | Need for influenza vaccination Diagnosis: Epigastric abdominal pain Comment: Ordered: Office Visit Level 4 Est [id number]; 02/29/16 13:00:00 CDT, Epigastric abdominal pain | Lumbar spinal stenosis | Benign hypertension | Coronary artery disease | Polyneuropathy | Primar y hypercholesterolemia | Chronic lymphocytic leukemia | Fatigue | Need for influenza vaccination Diagnosis: Fatigue Comment: Ordered: Office Visit Level 4 Est [id number]; 02/29/16 13:00:00 CDT, Epigastric abdominal pain | Lumbar spinal stenosis | Benign hypertension | Coronary artery disease | Polyneuropathy | Primar y hypercholesterolemia | Chronic lymphocytic leukemia | Fatigue | Need for influenza vaccination Diagnosis: Lumbar spinal stenosis Comment: Ordered: Office Visit Level 4 Est [id number]; 02/29/16 13:00:00 CDT, Epigastric abdominal pain | Lumbar spinal stenosis | Benign hypertension | Coronary artery disease | Polyneuropathy | Primar y hypercholesterolemia | Chronic lymphocytic leukemia | Fatigue | Need for influenza vaccination Diagnosis: Need for influenza vaccination Comment: Ordered: Office Visit Level 4 Est [id number]; 02/29/16 13:00:00 CDT, Epigastric abdominal pain | Lumbar spinal stenosis | Benign hypertension | Coronary artery disease | Polyneuropathy | Primar y hypercholesterolemia | Chronic lymphocytic leukemia | Fatigue | Need for influenza vaccination Other status: influenza virus vaccine, inactivated; 0.5 mL, IntraMuscular, Once, First Dose: 02/29/16 13:00:00 CDT, Stop Date: 02/29/16 13: 00:00 CDT (Completed) Diagnosis: Polyneuropathy Comment: Ordered: Office Visit Level 4 Est [id number]; 02/29/16 13:00:00 CDT, Epigastric abdominal pain | Lumbar spinal stenosis | Benign hypertension | Coronary artery disease | Polyneuropathy | Primar y hypercholesterolemia | Chronic lymphocytic leukemia | Fatigue | Need for influenza vaccination Diagnosis: Primary hypercholesterolemia Comment: Ordered: Office Visit Level 4 Est [id number]; 02/29/16 13:00:00 CDT, Epigastric abdominal pain | Lumbar spinal stenosis | Benign hypertension | Coronary artery disease | Polyneuropathy | Primar y hypercholesterolemia | Chronic lymphocytic leukemia | Fatigue | Need for influenza vaccination End of Orders ."
--- OUTSIDE RECORDS SUMMARY | 2017-03-08 20:49 | External Medical Summary | Referral Summary ---
:1930 [facility] Address [address] [place] [address] [place] [address] Care Team Providers Name Role Phone Niranjan García Primary Care Physician Encounter VC Date(s): 12/02/15 - 12/02/15 [facility] [place] [phone] [place] Discharge Disposition: 01-Home or Self Care Attending Physician: Niranjan García MD Admitting Physician: Niranjan García MD Vital Signs Most recent to oldest [Reference Range]: 1 Temperature Tympanic [36.6-38.1 degC] 36.9 degC (12/02/15 10:05 AM) Peripheral Pulse Rate [60-100 bpm] 96 bpm (12/02/15 10:05 AM) Blood Pressure [90-140/60-90 mmHg] 132/74 mmHg (12/02/15 10:05 AM) SpO2 96 % (12/02/15 10:05 AM) Problem List Condition Effective Dates Status [...] oldest [Reference Range]: 1 WBC [4.8-10.8 10*3/uL] 13.5 10*3/uL *HI* (12/02/15 10:50 AM) RBC [4.60-6.20] 4.66 (12/02/15 10:50 AM) Hgb [14.0-18.0 gm/dL] 16.3 gm/dL (12/02/15 10:50 AM) Hct [42.0-52.0 %] 45.7 % (12/02/15 10:50 AM) MCV [82.0-99.0 fL] 98.1 fL (12/02/15 10:50 AM) MCH [27.0-32.0 pg] 35.0 pg *HI* (12/02/15 10:50 AM) MCHC [32.0-36.0 gm/dL] 35.7 gm/dL (12/02/15 10:50 AM) RDW [11.5-14.5 %] 14.1 % (12/02/15 10:50 AM) Platelet [150-400 10*3/uL] 151 10*3/uL (12/02/15 10:50 AM) MPV [8.8-14.8 fL] 10.5 fL (12/02/15 10:50 AM) Neutrophils [51-75 %] 24 % *LOW* (12/02/15 10:50 AM) Lymphocytes [20-46 %] 73 % *HI* (12/02/15 10:50 AM) Monocytes [4-11 %] 3 % *LOW* (12/02/15 10:50 AM) Eosinophils [0-4 %] 0 % (12/02/15 10:50 AM) Basophils [0-2 %] 0 % (12/02/15 10:50 AM) Neutro Absolute [1.90-7.00 10*3] 3.24 10*3 (12/02/15 10:50 AM) Lymph Absolute [0.80-3.30 10*3] 9.86 10*3 *HI* (12/02/15 10:50 AM) [place] Absolute [0.30-1.00 10*3] 0.41 10*3 (12/02/15 10:50 AM) Eos Absolute [0.00-0.50 10*3] 0.00 10*3 (12/02/15 10:50 AM) Baso Absolute [0.00-0.20 10*3] 0.00 10*3 (12/02/15 10:50 AM) Differential Manual *ABN* (12/02/15 10:50 AM) Chemistry Most recent to oldest [Reference Range]: 1 Sodium Lvl [135-144 mEq/L] 142 mEq/L (12/02/15 10:50 AM) Potassium Lvl [3.5-5.2 mEq/L] 4.7 mEq/L (12/02/15 10:50 AM) Chloride [99-111 mEq/L] 105 mEq/L (12/02/15 10:50 AM) CO2 [23-31 mEq/L] 27 mEq/L (12/02/15 10:50 AM) AGAP [3-20] 10 (12/02/15 10:50 AM) BUN [8-26 mg/dL] 17 mg/dL (12/02/15 10:50 AM) Glucose Lvl [70-99 mg/dL] 166 mg/dL *HI* (12/02/15 10:50 AM) Creatinine Lvl [0.72-1.25 mg/dL] 0.95 mg/dL (12/02/15 10:50 AM) eGFR [>60 mL/min] >60 mL/min 1 (12/02/15 10:50 AM) Calcium Lvl [8.9-10.5 mg/dL] 9.1 mg/dL (12/02/15 10:50 AM) Albumin Lvl [3.4-4.8 gm/dL] 4.2 gm/dL (12/02/15 10:50 AM) Total Protein [6.0-7.6 gm/dL] 6.4 gm/dL 2 (12/02/15 10:50 AM) Globulin [1.8-4.0 gm/dL] 2.2 gm/dL (12/02/15 10:50 AM) ALT [0-55 U/L] 13 U/L (12/02/15 10:50 AM) AST [5-34 U/L] 15 U/L (12/02/15 10:50 AM) Alk Phos [40-150 U/L] 96 U/L (12/02/15 10:50 AM) Bili Total [0.2-1.2 mg/dL] 0.5 mg/dL (12/02/15 10:50 AM) TSH [0.35-4.94] 1.64 (12/02/15 10:50 AM) 1Result Comment: Multiply eGFR results by 1.21 for race.2Result Comment: Please note new reference range for adult Protein.Urinalysis Most recent to oldest [Reference Range]: 1 UA Color Yellow (12/02/15 11:04 AM) UA Appear Cloudy *ABN* (12/02/15 11:04 AM) UA pH [5.0-8.0] 5.5 (12/02/15 11:04 AM) UA Leuk Est [Negative] Pos 1+ *ABN* (12/02/15 11:04 AM) UA Nitrite [Negative] Negative (12/02/15 11:04 AM) UA Protein [Negative] Negative (12/02/15 11:04 AM) UA Glucose [Negative] Negative (12/02/15 11:04 AM) UA Ketones [Negative] Negative (12/02/15 11:04 AM) UA Urobilinogen [<1.0 mg/dL] 1.0 mg/dL (12/02/15 11:04 AM) UA Bili [Negative] Negative (12/02/15 11:04 AM) UA Blood [Negative] Negative (12/02/15 11:04 AM) UA Spec Grav [1.003-1.030] 1.026 (12/02/15 11:04 AM) Type Clean Catch (12/02/15 11:04 AM) UA WBC [0-4] 5-10 *ABN* (12/02/15 11:04 AM) UA RBC [0-4] 0-4 (12/02/15 11:04 AM) Epithelial Cells 0-2 (12/02/15 11:04 AM) UA Hyal Cast [0-3] 4-6 *ABN* (12/02/15 11:04 AM) Immunizations Vaccine Date Refusal Reason influenza virus [...] of prostate 1987 Back surgery 1960 tonsillectomy 193 Cystoscopies and dilatations 1OU, with [id number] bypass Social History Social History Type Response Smoking Status Former smoker; Tobacco use per day: Pack; Number of years: 101 1Quit in 1951 Assessment and Plan Extracted from: Title: Ambulatory Patient Education Author: Niranjan García MD Date: 12/02/15 Family Medicine Fatigue Fatigue is feeling tired all of the time, a lack of energy, or a lack of motivation. Occasional or mild fatigue is often a normal response to activity or life in general. However, long-lasting (chronic) or extreme fatigue may indicate an underlying medical condition. HOME CARE INSTRUCTIONS Watch your fatigue for any changes. The following actions may help to lessen any discomfort you are feeling: Talk to your health care provider about how much sleep you need each night. Try to get the required amount every night. Take medicines only as directed by your health care provider. Eat a healthy and nutritious diet. Ask your health care provider if you need help changing your diet. Drink enough fluid to keep your urine clear or pale yellow. Practice ways of relaxing, such as yoga, meditation, massage therapy, or acupuncture. Exercise regularly. Change situations that cause you stress. Try to keep your work and personal routine reasonable. Do not abuse illegal drugs. Limit alcohol intake to no more than 1 drink per day for non women and 2 drinks per day for men. One drink equals 12 ounces of beer, 5 ounces of wine, or 1 ounces of hard liquor. Take a multivitamin, if directed by your health care provider. SEEK MEDICAL CARE IF: Your fatigue does not get better. You have a fever. You have unintentional weight loss or gain. You have headaches. You have difficulty: Falling asleep. Sleeping throughout the night. You feel angry, guilty, anxious, or sad. You are unable to have a bowel movement (constipation). You skin is dry. Your legs or another part of your body is swollen. SEEK IMMEDIATE MEDICAL CARE IF: You feel confused. Your vision is blurry. You feel faint or pass out. You have a severe headache. You have severe abdominal, pelvic, or back pain. You have chest pain, shortness of breath, or an irregular or fast heartbeat. You are unable to urinate or you urinate less than normal. You develop abnormal bleeding, such as bleeding from the rectum, vagina , nose, lungs, or nipples. You vomit blood. You have thoughts about harming yourself or committing suicide. You are worried that you might harm someone else. This information is not intended to replace advice given to you by your health care provider. Make sure you discuss any questions you have with your health care provider. Document Released: 03/03/2008 Document Revised: 05/28/2015 Document Reviewed: 09/08/2014 [facility] Patient Information 2016 [employer]. No follow up information was provided. Extracted from: Title: CAD, HTN Author: Niranjan García MD Date: 12/02/15 Impression and Plan Diagnosis CLL (chronic lymphocytic leukemia) (PFO81-ZT C91.10, Working, Medical). Coronary artery disease (KNQ36-XH I25.10, Working, Medical). Benign hypertension (DGE74-DZ I10, Working, Medical). Lumbar spinal stenosis (DLW66-PU M48.06, Working, Medical). Primary hypercholesterolemia (QRV09-SM E78.0, Working, Medical). Peripheral neuropathy (CBV31-IU G63, Working, Medical). Fatigue (OOZ87-AE R53.83, Working, Medical). Plan: 1) Continue your current meds. 2) See me in 6 months for your physical, and as needed. 3) Lab ordered today. . Orders Orders (Selected) Outpatient Orders Ordered CBC w/ Differential: CMP: Office Visit Level 4 Est 98383: TSH 3rd Generation: eGFR: Ordered (Pending Collection) Routine Urinalysis: . Dx/Order Association Plan: Diagnosis: Benign hypertension Comment: Ordered: CMP; Blood, Routine Collect, 12/02/15 10:35:00 CDT, Once , Stop date 12/02/15 10:35:00 CDT, Lab Collect, Benign hypertension | Coronary artery disease | Primary hypercholesterolemia | Peripheral neuropathy | Fatigue Routine Urinalysis; Urine, Clean Catch, Routine collect, 12/02/15 10:35:00 CDT, Once, Stop date 12/02/15 10:35:00 CDT, Nurse Collect Non-Blood, Benign hypertension | Peripheral neuropathy Diagnosis: CLL (chronic lymphocytic leukemia) Comment: Ordered: CBC w/ Differential; Blood, Routine Collect, 12/02/15 10 :35:00 CDT, Once, Stop date 12/02/15 10:35:00 CDT, Lab Collect, CLL (chronic lymphocytic leukemia) | Fatigue Office Visit Level 4 Est 04451; 12/02/15 10:18:00 CDT, CLL (chronic lymphocytic leukemia) | Coronary artery disease | Lumbar spinal stenosis | Peripheral neuropathy | Primary hypercholesterolemia Diagnosis: Coronary artery disease Comment: Ordered: CMP; Blood, Routine Collect, 12/02/15 10:35:00 CDT, Once , Stop date 12/02/15 10:35:00 CDT, Lab Collect, Benign hypertension | Coronary artery disease | Primary hypercholesterolemia | Peripheral neuropathy | Fatigue Office Visit Level 4 Est 43186; 12/02/15 10:18:00 CDT, CLL (chronic lymphocytic leukemia) | Coronary artery disease | Lumbar spinal stenosis | Peripheral neuropathy | Primary hypercholesterolemia Diagnosis: Fatigue Comment: Ordered: CMP; Blood, Routine Collect, 12/02/15 10:35:00 CDT, Once , Stop date 12/02/15 10:35:00 CDT, Lab Collect, Benign hypertension | Coronary artery disease | Primary hypercholesterolemia | Peripheral neuropathy | Fatigue CBC w/ Differential; Blood, Routine Collect, 12/01 10:35:00 CDT, Once, Stop date 12/02/15 10:35:00 CDT, Lab Collect, CLL ( chronic lymphocytic leukemia) | Fatigue TSH 3rd Generation; Blood, Routine Collect, 10:35:00 CDT, Once, Stop date 12/02/15 10:35:00 CDT, Lab Collect, Fatigue | Peripheral neuropathy | Primary hypercholesterolemia Diagnosis: Lumbar spinal stenosis Comment: Ordered: Office Visit Level 4 Est 99676; 12/02/15 10:18:00 CDT, CLL (chronic lymphocytic leukemia) | Coronary artery disease | Lumbar spinal stenosis | Peripheral neuropathy | Primary hypercholesterolemia Diagnosis: Peripheral neuropathy Comment: Ordered: CMP; Blood, Routine Collect, 12/02/15 10:35:00 CDT, Once , Stop date 12/02/15 10:35:00 CDT, Lab Collect, Benign hypertension | Coronary artery disease | Primary hypercholesterolemia | Peripheral neuropathy | Fatigue TSH 3rd Generation; Blood, Routine Collect, 10:35:00 CDT, Once, Stop date 12/02/15 10:35:00 CDT, Lab Collect, Fatigue | Peripheral neuropathy | Primary hypercholesterolemia Routine Urinalysis; Urine, Clean Catch, Routine collect, 12/02/15 10:35:00 CDT, Once, Stop date 12/02/15 10:35:00 CDT, Nurse Collect Non-Blood, Benign hypertension | Peripheral neuropathy Office Visit Level 4 Est 36511; 12/02/15 10:18:00 CDT, CLL (chronic lymphocytic leukemia) | Coronary artery disease | Lumbar spinal stenosis | Peripheral neuropathy | Primary hypercholesterolemia Diagnosis: Primary hypercholesterolemia Comment: Ordered: CMP; Blood, Routine Collect, 12/02/15 10:35:00 CDT, Once , Stop date 12/02/15 10:35:00 CDT, Lab Collect, Benign hypertension | Coronary artery disease | Primary hypercholesterolemia | Peripheral neuropathy | Fatigue TSH 3rd Generation; Blood, Routine Collect, 10:35:00 CDT, Once, Stop date 12/02/15 10:35:00 CDT, Lab Collect, Fatigue | Peripheral neuropathy | Primary hypercholesterolemia Office Visit Level 4 Est 57050; 12/02/15 10:18:00 CDT, CLL (chronic lymphocytic leukemia) | Coronary artery disease | Lumbar spinal stenosis | Peripheral neuropathy | Primary hypercholesterolemia End of Orders ."
--- OUTSIDE RECORDS SUMMARY | 2017-03-08 20:50 | External Medical Summary | Referral Summary ---
:1930 [facility] Address [address] [place] [address] [place] [address] Care Team Providers Name Role Phone Niranjan García Primary Care Physician Encounter VC Date(s): 10/26/14 - 10/26/14 [facility] [place] [phone] [place] Discharge Disposition: [...] Daily, # 45 tabs, 3 Refill(s), Pharmacy: [facility] [id number] Start Date: 04/28/14 Stop Date: 04/23/15 Status: [...] AM) Lymphocytes [20-46 %] 67 % *HI* (10/26/14 10:13 AM) Monocytes [4-11 %] 2 % *LOW* (10/26/14 10:13 AM) Eosinophils [0-4 %] 1 % (10/26/14 10:13 AM) Basophils [0-2 %] 0 % (10/26/14 10:13 AM) Neutro Absolute [1.90-7.00 10*3] 4.50 10*3 (10/26/14 10:13 AM) Lymph Absolute [0.80-3.30 10*3] 10.05 10*3 *HI* (10/26/14 10:13 AM) [place] Absolute [0.30-1.00 10*3] 0.30 10*3 (10/26/14 10:13 AM) Eos Absolute [0.00-0.50 10*3] 0.15 10*3 (10/26/14 10:13 AM) Baso Absolute [0.00-0.20 10*3] 0.00 10*3 (10/26/14 10:13 AM) Differential Manual *ABN* (10/26/14 10:13 AM) Chemistry Most recent to oldest [Reference Range]: 1 Sodium Lvl [135-144 mEq/L] 142 mEq/L (10/26/14 10:13 AM) Potassium Lvl [3.5-5.2 mEq/L] 4.3 mEq/L (10/26/14 10:13 AM) Chloride [99-111 mEq/L] 108 mEq/L (6/8/15 10:13 AM) CO2 [23-31 mEq/L] 26 mEq/L [...] Date Refusal Reason influenza virus vaccine, inactivated 9/29/14 influenza virus vaccine, live 03/04/13 pneumococcal 13-valent [...] tonsillectomy 1935 Cystoscopies and dilatations 1OU, with [id number] bypass Social History Social History Type Response [...] for any changes. Visit a skin doctor (procedure manager ) every year for a skin exam. SEEK MEDICAL CARE IF: Your skin does not heal and becomes irritated, red, or bleeds. You notice any changes or new growths on your skin. Document Released: 08/03/2009 Document Revised: 07/29/2012 Document Reviewed: 06/17/2012 [facility] Patient Information 2014 [employer]. No follow up information was provided. Extracted [...] Each : Office Visit Level 5 Est 94770: Future (On Hold) CBC w/ Differential: CMP: Carotid Duplex US Bilateral: Lipid Panel: Routine Urinalysis: . Dx/Order Association Plan: Diagnosis: Actinic keratoses Comment: Ordered: Destruction premalignant lesion 2-14, Each ; 9:48:00 CDT, 1, Actinic keratoses Destruction premalignant lesion 1st 00344; 9:48:00 CDT, 1, Actinic keratoses Modified: Office Visit Level 5 Est 96778; 10/26/14 9:40:00 CDT, 25, CLL | CAD | Carotid artery stenosis | Actinic keratoses | Benign hypertension Diagnosis: BPPV (benign paroxysmal positional vertigo) Comment: Modified: Office Visit Level 5 Est 09808; 10/26/14 9:40:00 CDT, 25, CLL | CAD | Carotid artery stenosis | Actinic keratoses | Benign hypertension Diagnosis: Benign hypertension Comment: Modified: Office Visit Level 5 Est 50134; 10/26/14 9:40:00 CDT, 25, CLL | CAD | Carotid artery stenosis | Actinic keratoses | Benign hypertension Diagnosis: CAD Comment: Modified: Office Visit Level 5 Est 61349; 10/26/14 9:40:00 CDT, 25, CLL | CAD | Carotid artery stenosis | Actinic keratoses | Benign hypertension Diagnosis: CLL Comment: Modified: Office Visit Level 5 Est 48723; 10/26/14 9:40:00 CDT, 25, CLL | CAD | Carotid artery stenosis | Actinic keratoses | Benign hypertension Diagnosis: Carotid artery stenosis Comment: Modified: Office Visit Level 5 Est 08058; 10/26/14 9:40:00 CDT, 25, CLL | CAD | Carotid artery stenosis | Actinic keratoses | Benign hypertension Diagnosis: Chronic lumbar radiculopathy Comment: Modified: Office Visit Level 5 Est 74991; 10/26/14 9:40:00 CDT, 25, CLL | CAD | Carotid artery stenosis | Actinic keratoses | Benign hypertension Diagnosis: High cholesterol Comment: Modified: Office Visit Level 5 Est 44015; 10/26/14 9:40:00 CDT, 25, CLL | CAD | Carotid artery stenosis | Actinic keratoses | Benign hypertension Diagnosis: Lumbar spinal stenosis Comment: Modified: Office Visit Level 5 Est 02291; 10/26/14 9:40:00 CDT, 25, CLL | CAD | Carotid artery stenosis | Actinic keratoses | Benign hypertension Diagnosis: Neuropathy, peripheral Comment: Modified: Office Visit Level 5 Est 47860; 10/26/14 9:40:00 CDT, 25, CLL | CAD [...]
--- OUTSIDE RECORDS SUMMARY | 2017-03-08 20:50 | External Medical Summary | Referral Summary ---
:1930 Author [facility] Address [address] [place] [address] [place] [address] Care Team Providers Name Role Phone Niranjan García Primary Care Physician Encounter VC Date(s): 02/11/15 - 02/11/15 [facility] [place] [phone] [place] Discharge Disposition: 01-Home or Self Care Attending Physician: Niranjan García MD Admitting Physician: Niranjan García MD Vital Signs Most recent to oldest [Reference Range]: 1 Temperature Oral [35.8-37.3 degC] 36.4 degC (02/11/15 11:15 AM) Peripheral Pulse Rate [60-100 bpm] 70 bpm (02/11/15 11:15 AM) Respiratory Rate [14-20 br/min] 18 br/min (02/11/15 11:15 AM) Blood Pressure [90-140/60-90 mmHg] 110/70 mmHg (02/11/15 11:15 AM) SpO2 95 % (02/11/15 11:15 AM) Problem List Condition Effective Dates Status [...] Daily, # 45 tabs, 3 Refill(s), [facility] [id number] Start Date: 04/28/14 Stop Date: 04/23/15 Status: OrderedMisc Medication Daily, Cholestoff, 0 Refill(s) Start Date: 07/27/14 Status: Ordered Results No data available for this section Immunizations Vaccine Date Refusal Reason influenza virus vaccine, inactivated 02/16/14 influenza virus vaccine, live 03/04/13 pneumococcal 13-valent conjugate vaccine 04/28/14 pneumococcal 23-polyvalent vaccine 12/16/08 pneumococcal 23-polyvalent vaccine 06/22/97 tetanus toxoid 10/29/13 tetanus-diphth toxoids (Td) adult/adol 09/30/03 Procedures Procedure Date Related Diagnosis Body Site Destruction (eg, laser surgery, electrosurgery, 02/11/15 cryosurgery, chemosurgery, surgical curettement), premalignant lesions (eg, actinic keratoses); first lesion Destruction (eg, laser surgery, electrosurgery, 02/11/15 cryosurgery, chemosurgery, surgical curettement), premalignant lesions (eg, actinic keratoses); second through 14 lesions, each (List separately in addition to code for first lesion).. Destruction (eg, laser surgery, electrosurgery, 02/11/15 cryosurgery, chemosurgery, surgical curettement), premalignant lesions (eg, actinic keratoses); second through 14 lesions, each (List separately in addition to code for first lesion).. Destruction (eg, laser surgery, electrosurgery, 02/11/15 cryosurgery, chemosurgery, surgical curettement), premalignant lesions (eg, actinic keratoses); second through 14 lesions, each (List separately in addition to code for first lesion).. Low back pain 2011 Spinal stenosis 2011 [...] tonsillectomy 1935 Cystoscopies and dilatations 1OU, with [id number] bypass Social History Social History Type Response Smoking Status Former smoker; Tobacco use per day: Pack; Number of years: 101 1Quit in 1951 Assessment and Plan Extracted from: Title: Ambulatory Patient Education Author: Niranjan García MD Date: 02/11/15 Family Medicine Actinic Keratosis Actinic keratosis is [...] for any changes. Visit a skin doctor (lasting room machine operator) every year for a skin exam. SEEK MEDICAL CARE IF: Your skin does not heal and becomes irritated, red, or bleeds. You notice any changes or new growths on your skin. Document Released: 08/03/2009 Document Revised: 09/21/2014 Document Reviewed: 06/17/2012 Exit[employer] Patient Information 2015 [employer]. This information is not intended to replace advice given to you by your health care provider. Make sure you discuss any questions you have with your health care provider. No follow up information was provided. Extracted from: Title: AKs, suture removal Author: Niranjan García MD Date: 02/11/15 Impression and Plan Diagnosis Actinic keratoses (ICD9 702.0, Working, Medical). 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 Basal cell carcinoma of skin (ICD9 173.91, Working, Medical). Visit for suture removal (ICD9 V58.32, Working, Medical). Plan: 1) 4 actinic keratoses treated with liquid nitrogen using a freeze thaw refreeze technique, which was well tolerated: 3 treated on the left neck and one on the right neck. 2) Sutures were removed from the right shoulder incision without difficulty. 3) Continue your current meds. 4) See me in 3 months and as needed. . Orders Orders (Selected) Outpatient Orders Ordered Destruction premalignant lesion 1st 20275: Destruction premalignant lesion 2-14, Each 49805: Destruction premalignant lesion 2-14, Each 06441: Destruction premalignant lesion 2-14, Each 15747: Office Visit Level 2 Est 11284: . Dx/Order Association Plan: Diagnosis: Actinic keratoses Comment: Ordered: Destruction premalignant lesion 2-14, Each 75314; 12:14:00 CDT, 25, 1, Actinic keratoses Destruction premalignant lesion 2-14, Each 88885; 02/11/15 12:14:00 CDT, 1, Actinic keratoses Destruction premalignant lesion 2-14, Each 33893; 02/11/15 12:14:00 CDT, 1, Actinic keratoses Destruction premalignant lesion 1st 77398; 12:14:00 CDT, 1, Actinic keratoses Office Visit Level 2 Est 39725; 02/11/15 12:14:00 CDT, Basal cell carcinoma of skin | Visit for suture removal | Ataxic gait | Actinic keratoses Diagnosis: Ataxic gait Comment: Ordered: Office Visit Level 2 Est 61488; 02/11/15 12:14:00 CDT, Basal cell carcinoma of skin | Visit for suture removal | Ataxic gait | Actinic keratoses Diagnosis: Basal cell carcinoma of skin Comment: Ordered: Office Visit Level 2 Est 61970; 02/11/15 12:14:00 CDT, Basal cell carcinoma of skin | Visit for suture removal | Ataxic gait | Actinic keratoses Diagnosis: Visit for suture removal Comment: Ordered: Office Visit Level 2 Est 52238; 02/11/15 12:14:00 CDT, Basal cell carcinoma of skin | Visit for suture removal | Ataxic gait | Actinic keratoses End of Orders ."
--- OUTSIDE RECORDS SUMMARY | 2017-03-08 20:50 | External Medical Summary | Referral Summary ---
:1930 [facility] Address [address] [place] [address] [place] [address] Care Team Providers Name Role Phone Niranjan García Primary Care Physician Encounter VC Date(s): 02/11/15 - 02/11/15 [facility] [place] [phone] [place] Discharge Disposition: [...] Daily, # 45 tabs, 3 Refill(s), [facility] [id number] Start Date: 04/28/14 Stop Date: 04/23/15 Status: [...] tonsillectomy 1935 Cystoscopies and dilatations 1OU, with [id number] bypass Social History Social History Type Response [...] for any changes. Visit a skin doctor (director of public safety) every year for a skin exam. SEEK MEDICAL CARE IF: Your skin does not heal and becomes irritated, red, or bleeds. You notice any changes or new growths on your skin. Document Released: 08/03/2009 Document Revised: 09/21/2014 Document Reviewed: 06/17/2012 ExitCare Patient Information 2015 [employer]. This information is not intended to replace [...] Outpatient Orders Ordered Destruction premalignant lesion 1st 60775: Destruction premalignant lesion 2-14, Each 68336: Destruction premalignant lesion 2-14, Each 29074: Destruction premalignant lesion 2-14, Each 35118: Office Visit Level 2 Est 80259: . Dx/Order Association Plan: Diagnosis: Actinic keratoses Comment: Ordered: Destruction premalignant lesion 2-14, Each 55913; 12:14:00 CDT, 25, 1, Actinic keratoses Destruction premalignant lesion 2-14, Each 12779; 02/11/15 12:14:00 CDT, 1, Actinic keratoses Destruction premalignant lesion 2-14, Each 38815; 02/11/15 12:14:00 CDT, 1, Actinic keratoses Destruction premalignant lesion 1st 15179; 12:14:00 CDT, 1, Actinic keratoses Office Visit Level 2 Est 84722; 02/11/15 12:14:00 CDT, Basal cell carcinoma of skin | Visit for suture removal | Ataxic gait | Actinic keratoses Diagnosis: Ataxic gait Comment: Ordered: Office Visit Level 2 Est 83019; 02/11/15 12:14:00 CDT, Basal cell carcinoma of skin | Visit for suture removal | Ataxic gait | Actinic keratoses Diagnosis: Basal cell carcinoma of skin Comment: Ordered: Office Visit Level 2 Est 48741; 02/11/15 12:14:00 CDT, Basal cell carcinoma of skin | Visit for suture removal | Ataxic gait | Actinic keratoses Diagnosis: Visit for suture removal Comment: Ordered: Office Visit Level 2 Est 30832; 02/11/15 12:14:00 CDT, Basal cell carcinoma of skin | Visit for suture removal | Ataxic gait | Actinic keratoses End of Orders ."
--- OUTSIDE RECORDS SUMMARY | 2017-03-08 20:50 | External Medical Summary | Referral Summary ---
:1930 [facility] Address [address] [place] [address] [place] [address] Care Team Providers Name Role Phone Niranjan García Primary Care Physician Encounter VC Date(s): 10/26/14 - 10/26/14 [facility] [place] [phone] Discharge Disposition: [...] Daily, # 45 tabs, 3 Refill(s), Pharmacy: [id number] Start Date: 04/28/14 Stop Date: 04/23/15 Status: [...] 10*3] 10.05 10*3 *HI* (10/26/14 10:13 AM) [place] [facility] [0.30-1.00 10*3] 0.30 10*3 (10/26/14 10:13 [...] tonsillectomy 1935 Cystoscopies and dilatations 1OU, with [id number]-nplpex bypass Social History Social History Type Response [...] for any changes. Visit a skin doctor (drier tender ) every year for a skin exam. SEEK MEDICAL CARE IF: Your skin does not heal and becomes irritated, red, or bleeds. You notice any changes or new growths on your skin. Document Released: 08/03/2009 Document Revised: 07/29/2012 Document Reviewed: 06/17/2012 [facility] Patient Information 2014 [email or web address] [facility]. No follow up information was provided. [...] Each : Office Visit Level 5 Est 20043: Future (On Hold) CBC w/ Differential: CMP: Carotid Duplex US Bilateral: Lipid Panel: Routine Urinalysis: . Dx/Order Association Plan: Diagnosis: Actinic keratoses Comment: Ordered: Destruction premalignant lesion 2-14, Each ; 9:48:00 CDT, 1, Actinic keratoses Destruction premalignant lesion 1st 78057; 9:48:00 CDT, 1, Actinic keratoses Modified: Office Visit Level 5 Est 32730; 10/26/14 9:40:00 CDT, 25, CLL | CAD | Carotid artery stenosis | Actinic keratoses | Benign hypertension Diagnosis: BPPV (benign paroxysmal positional vertigo) Comment: Modified: Office Visit Level 5 Est 05990; 10/26/14 9:40:00 CDT, 25, CLL | CAD | Carotid artery stenosis | Actinic keratoses | Benign hypertension Diagnosis: Benign hypertension Comment: Modified: Office Visit Level 5 Est 56561; 10/26/14 9:40:00 CDT, 25, CLL | CAD | Carotid artery stenosis | Actinic keratoses | Benign hypertension Diagnosis: CAD Comment: Modified: Office Visit Level 5 Est 56459; 10/26/14 9:40:00 CDT, 25, CLL | CAD | Carotid artery stenosis | Actinic keratoses | Benign hypertension Diagnosis: CLL Comment: Modified: Office Visit Level 5 Est 36184; 10/26/14 9:40:00 CDT, 25, CLL | CAD | Carotid artery stenosis | Actinic keratoses | Benign hypertension Diagnosis: Carotid artery stenosis Comment: Modified: Office Visit Level 5 Est 81745; 10/26/14 9:40:00 CDT, 25, CLL | CAD | Carotid artery stenosis | Actinic keratoses | Benign hypertension Diagnosis: Chronic lumbar radiculopathy Comment: Modified: Office Visit Level 5 Est 13780; 10/26/14 9:40:00 CDT, 25, CLL | CAD | Carotid artery stenosis | Actinic keratoses | Benign hypertension Diagnosis: High cholesterol Comment: Modified: Office Visit Level 5 Est 94603; 10/26/14 9:40:00 CDT, 25, CLL | CAD | Carotid artery stenosis | Actinic keratoses | Benign hypertension Diagnosis: Lumbar spinal stenosis Comment: Modified: Office Visit Level 5 Est 28848; 10/26/14 9:40:00 CDT, 25, CLL | CAD | Carotid artery stenosis | Actinic keratoses | Benign hypertension Diagnosis: Neuropathy, peripheral Comment: Modified: Office Visit Level 5 Est 38781; 10/26/14 9:40:00 CDT, 25, CLL | CAD [...]
--- OUTSIDE RECORDS SUMMARY | 2017-03-08 20:50 | External Medical Summary | Referral Summary ---
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 Low back pain 2011 Spinal stenosis 2011 [...] of prostate 1988 Back surgery 1959 tonsillectomy 193 Cystoscopies and dilatations 1OU, with [id number] bypass Social History Social History Type Response Smoking Status Former smoker; Tobacco use per day: Pack; Number of years: 101 1Quit in 1951 Assessment and Plan Extracted from: Title: Ambulatory Patient Education Author: Niranjan García MD Date: 01/27/15 Family Medicine Squamous Cell Carcinoma Squamous cell carcinoma is the second most common form of skin cancer. It begins in the squamous cells in the outer layer of the skin (epidermis). CAUSES Ultraviolet light exposure is the most common cause of squamous cell carcinoma. This may come from sunlight or tanning beds. Squamous cell carcinoma is most common in sun-exposed areas like the face, ne ck, arms, and hands. However, squamous cell carcinoma can occur anywhere on the body, including the lips, inside the mouth, the legs, sites of long-term ( chronic) scarring, and the anus. Other causes of squamous cell carcinoma can include: Exposure to arsenic. Exposure to radiation. Exposure to toxic tars and oils. RISK FACTORS Factors that increase your risk for squamous cell carcinoma include: Having fair skin. Being middle-aged or elderly. Heavy sun exposure, especially during childhood. Repeated sunburns. Use of tanning beds. A weakened immune system. This includes patients who have received a transplant and patients with human immunodeficiency virus (HIV) or acquired immunodeficency syndrome (AIDS). Human papillomavirus infection. Conditions that cause chronic scarring. This can include burn scars, chronic ulcers, heat (thermal) injuries, and radiation. Exposure to psoralen plus ultraviolet A light therapy. Exposure to chemical carcinogens, such as tar, soot, and arsenic. Chronic, inflammatory conditions such as lupus, lichen planus, or lichen sclerosus. Chronic infections, such as infections of the bone (osteomyelitis). Smoking. SYMPTOMS Squamous cell carcinoma often starts as small, skin-colored (pink or brown) sandpaper-like growths. These growths are called solar keratoses or actinic keratoses. These growths are often more easily felt than seen. DIAGNOSIS Your caregiver may be able to tell what is wrong by doing a physical exam. Often, a tissue sample is also taken. The tissue sample is examined under a microscope. TREATMENT The treatment for squamous cell carcinoma depends on the size and location of the tumors, as well as your overall health. Possible treatments include: Mohs surgery. This is a procedure done by a skin doctor (labor contract analyst or Mohs surgeon) in his or her office. The cancerous cells are removed layer by layer. Laser surgery to remove the tumor. Freezing the tumor with liquid nitrogen (cryosurgery). Radiation. This may be used for tumors on the face. Electrodesiccation and curettage. This involves alternately scraping and burning the tumor, using an electric current to control bleeding. If treated soon enough, squamous cell carcinoma rarely spreads to other areas of the body (metastasizes). If left untreated, however, squamous cell carcinoma will destroy the nearby tissues. This can result in the loss of a nose or ear. PREVENTION Avoid the sun between 10:00 am and 4:00 pm when it is the strongest. Use a sunscreen or sunblock with sun protection factor 30 or greater. Apply sunscreen at least 30 minutes before exposure to the sun. Reapply sunscreen every 2 to 4 hours while you are outside, after swimming , and after excessive sweating. Always wear protective hats, clothing, and sunglasses with ultraviolet protection. Avoid tanning beds. HOME CARE INSTRUCTIONS Avoid unprotected sun exposure. Do not smoke. Follow your caregiver's instructions for self-exams. Look for new growths or changes in your skin. Keep all follow-up appointments as directed by your caregiver. SEEK MEDICAL CARE IF: You notice any new growths or changes in your skin. You have had a squamous cell carcinoma tumor removed and you notice a new growth in the same location. Document Released: 11/11/2003 Document Revised: 07/29/2012 Document Reviewed: 01/29/2012 [employer] Patient Information 2015 So1. This information is not intended to replace advice given to you by your health care provider. Make sure you discuss any questions you have with your health care provider. No follow up information was provided. Extracted from: Title: skin cancer excision right shoulder Author: Niranjan García MD Date: 01/27/15 Impression and Plan Diagnosis NEOPLASM OF UNCERTAIN BEHAVIOR OF SKIN (ICD9 238.2, Discharge, Medical). 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 Orders (Selected) Outpatient Orders Ordered Exc Mal Les Trunk Arm Leg 1.1-2.0cm 22192: Completed Pathology Surgical Order: . Counseled: Patient advised to keep the excisional site clean and dry for 3 days, then may shower. Apply MADI daily for 8 days. See me in the office for a recheck and removal of some of the sutures in 8 days. .
--- OUTSIDE RECORDS SUMMARY | 2017-03-08 20:50 | External Medical Summary | Referral Summary ---
:1930 Author Organization [facility] [place] [address] Care Team Providers Name Role Phone Niranjan García Primary Care Physician Encounter VC Date(s): 06/05/16 - 06/05/16 [facility] [place] [phone] [place] Discharge Diagnosis: Diarrhea Discharge Diagnosis: Lumbar spinal stenosis Discharge Diagnosis: Chronic lymphocytic leukemia Discharge Diagnosis: Benign hypertension Discharge Diagnosis: Lower abdominal pain Discharge Diagnosis: Nausea Discharge Diagnosis: Primary hypercholesterolemia Discharge Diagnosis: Coronary artery disease Discharge Disposition: 01-Home or Self Care Attending Physician: Niranjan García MD Admitting Physician: Niranjan García MD Vital Signs Most recent to oldest [Reference Range]: 1 Temperature Tympanic [36.6-38.1 degC] 36.4 degC *LOW* (06/05/16 1:08 PM) Peripheral Pulse Rate [60-100 bpm] 84 bpm (06/05/16 1:08 PM) Blood Pressure [90-140/60-90 mmHg] 100/66 mmHg (06/05/16 1:08 PM) Problem List Condition Effective Dates Status [...] DIZZY, HEADACHE Active Tussionex [employer] Active Medications aspirin 81 mg oral tablet 81 mg 1 tabs, Oral, Sunday, 0 Refill(s) Start Date: 06/05/16 Status: OrderedCentrum Silver 1 tablet, Oral, Daily, 0 Refill(s) Start Date: 10/23/13 Status: OrderedMisc Medication Daily, Cholestoff, 0 Refill(s) Start Date: 07/27/14 Status: Ordered Results No data available for this section Immunizations Given and Recorded Vaccine Date Status Refusal Reason influenza virus vaccine, inactivated 02/29/16 Given influenza virus vaccine, inactivated 03/30/15 Recorded influenza virus vaccine, inactivated 02/16/14 Recorded influenza virus vaccine, live 03/04/13 Given pneumococcal 13-valent conjugate vaccine 04/28/14 Given pneumococcal 23-polyvalent vaccine 12/16/08 Recorded pneumococcal 23-polyvalent vaccine 06/22/97 Recorded tetanus toxoid 10/29/13 Given tetanus-diphth toxoids (Td) adult/adol 09/30/03 Given Procedures Procedure Date Related Diagnosis Body Site Low back pain 2012 Spinal stenosis 2012 L3-4 TRANSLAMINAR 03/28/11 CYSTO, [...] tonsillectomy 193 Cystoscopies and dilatations 1OU, with [id number]-[id number] bypass Social History Social History Type Response Smoking Status Former smoker; Tobacco use per day: Pack; Number of years: 101 1Quit in 1951 Assessment and Plan Extracted from: Title: Ambulatory Patient Education Author: Niranjan García MD Date: 06/05/16 Emergency Medicine Diarrhea Diarrhea is frequent loose and watery bowel movements. It can cause you to feel weak and dehydrated. Dehydration can cause you to become tired and thirsty , have a dry mouth, and have decreased urination that often is dark yellow. Diarrhea is a sign of another problem, most often an infection that will not last long. In most cases, diarrhea typically lasts 2 3 days. However, it can last longer if it is a sign of something more serious. It is important to treat your diarrhea as directed by your caregiver to lessen or prevent future episodes of diarrhea. CAUSES Some common causes include: Gastrointestinal infections caused by viruses, bacteria, or parasites. Food poisoning or food allergies. Certain medicines, such as antibiotics, chemotherapy, and laxatives. Artificial sweeteners and fructose. Digestive disorders. HOME CARE INSTRUCTIONS Ensure adequate fluid intake (hydration): Have 1 cup (8 oz) of fluid for each diarrhea episode. Avoid fluids that contain simple sugars or sports drinks, fruit juices, whole milk products, and so bello. Your urine should be clear or pale yellow if you are drinking enough fluids. Hydrate with an oral rehydration solution that you can purchase at pharmacies, retail stores, and online. You can prepar e an oral rehydration solution at home by mixing the following ingredients together: tsp table salt. tsp baking soda. tsp salt substitute containing potassium chloride. 1 tablespoons sugar. 1 L (34 oz) of water. Certain foods and beverages may increase the speed at which food moves through the gastrointestinal (GI) tract. These foods and beverages should be avoided and include: Caffeinated and alcoholic beverages. High-fiber foods, such as raw fruits and vegetables, nuts, seeds, and whole grain breads and cereals. Foods and beverages sweetened with sugar alcohols, such as xylitol, sorbitol, and mannitol. Some foods may be well tolerated and may help thicken stool including: Starchy foods, such as rice, toast, pasta, low-sugar cereal, oatmeal, grits, baked potatoes, crackers, and bagels. Bananas. Applesauce. Add probiotic-rich foods to help increase healthy bacteria in the GI tract, such as yogurt and fermented milk products. Wash your hands well after each diarrhea episode. Only take [id number] or prescription medicines as directed by your caregiver. Take a warm bath to relieve any burning or pain from frequent diarrhea episodes. SEEK IMMEDIATE MEDICAL CARE IF: You are unable to keep fluids down. You have persistent vomiting. You have blood in your stool, or your stools are black and tarry. You do not urinate in 68 hours, or there is only a small amount of very dark urine. You have abdominal pain that increases or localizes. You have weakness, dizziness, confusion, or light-headedness. You have a severe headache. Your diarrhea gets worse or does not get better. You have a fever or persistent symptoms for more than 23 days. You have a fever and your symptoms suddenly get worse. MAKE SURE YOU: Understand these instructions. Will watch your condition. Will get help right away if you are not doing well or get worse. This information is not intended to replace advice given to you by your health care provider. Make sure you discuss any questions you have with your health care provider. Document Released: 04/27/2003 Document Revised: 05/28/2015 Document Reviewed: 01/12/2013 [employer] Patient Education 2016 [employer] No follow up information was provided. Extracted from: Title: Male HTN Author: Niranjan García MD Date: 06/05/16 Impression and Plan Diagnosis Diarrhea (TIF82-FE R19.7, Discharge, Medical). Lower abdominal pain (YMR16-JC R10.30, Discharge, Medical). Nausea (CAW16-PX R11.0, Discharge, Medical). Lumbar spinal stenosis (GCO68-BZ M48.06, Discharge, Medical). Chronic lymphocytic leukemia (QMJ66-OL C91.10, Discharge, Medical). Benign hypertension (XJJ39-ZR I10, Discharge, Medical). Primary hypercholesterolemia (RSA43-DD E78.00, Discharge, Medical). Coronary artery disease (PUF49-EN I25.10, Discharge, Medical). Plan: 1) Continue your current meds. 2) See me in 3 months and as needed. 3) Let me know if your diarrhea, nausea and abdominal pain doesn't clear up is a few days.. Orders Orders (Selected) Outpatient Orders Ordered Office Visit Level 4 Est 08782: . Dx/Order Association Plan: Diagnosis: Benign hypertension Comment: Ordered: Office Visit Level 4 Est 27720; 06/05/16 12:55:00 REPAIRER, Diarrhea | Lower abdominal pain | Chronic lymphocytic leukemia | Coronary artery disease | Nausea | Benign hypertension | Nell mbar spinal stenosis | Primary hypercholesterolemia Diagnosis: Chronic lymphocytic leukemia Comment: Ordered: Office Visit Level 4 Est 32866; 06/05/16 12:55:00 REPAIRER, Diarrhea | Lower abdominal pain | Chronic lymphocytic leukemia | Coronary artery disease | Nausea | Benign hypertension | Nell mbar spinal stenosis | Primary hypercholesterolemia Diagnosis: Coronary artery disease Comment: Ordered: Office Visit Level 4 Est 16910; 06/05/16 12:55:00 REPAIRER, Diarrhea | Lower abdominal pain | Chronic lymphocytic leukemia | Coronary artery disease | Nausea | Benign hypertension | Nell mbar spinal stenosis | Primary hypercholesterolemia Diagnosis: Diarrhea Comment: Ordered: Office Visit Level 4 Est 74534; 06/05/16 12:55:00 REPAIRER, Diarrhea | Lower abdominal pain | Chronic lymphocytic leukemia | Coronary artery disease | Nausea | Benign hypertension | Nell mbar spinal stenosis | Primary hypercholesterolemia Diagnosis: Lower abdominal pain Comment: Ordered: Office Visit Level 4 Est 32569; 06/05/16 12:55:00 REPAIRER, Diarrhea | Lower abdominal pain | Chronic lymphocytic leukemia | Coronary artery disease | Nausea | Benign hypertension | Nell mbar spinal stenosis | Primary hypercholesterolemia Diagnosis: Lumbar spinal stenosis Comment: Ordered: Office Visit Level 4 Est 88657; 06/05/16 12:55:00 REPAIRER, Diarrhea | Lower abdominal pain | Chronic lymphocytic leukemia | Coronary artery disease | Nausea | Benign hypertension | Nell mbar spinal stenosis | Primary hypercholesterolemia Diagnosis: Nausea Comment: Ordered: Office Visit Level 4 Est 13814; 06/05/16 12:55:00 REPAIRER, Diarrhea | Lower abdominal pain | Chronic lymphocytic leukemia | Coronary artery disease | Nausea | Benign hypertension | Nell mbar spinal stenosis | Primary hypercholesterolemia Diagnosis: Primary hypercholesterolemia Comment: Ordered: Office Visit Level 4 Est 88004; 06/05/16 12:55:00 REPAIRER, Diarrhea | Lower abdominal pain | Chronic lymphocytic leukemia | Coronary artery disease | Nausea | Benign hypertension | Nell mbar spinal stenosis | Primary hypercholesterolemia Additional Orders: Comment: Ordered: aspirin 81 mg oral tablet,81 mg 1 tabs, Oral, Sunday, 0 Refill(s) End of Orders ."
--- OUTSIDE RECORDS SUMMARY | 2017-03-08 20:50 | External Medical Summary | Referral Summary ---
:1930 [facility] Address [address] [place] [address] [place] [address] Care Team Providers Name Role Phone Niranjan García Primary Care Physician Encounter VC Date(s): 06/03/15 - 06/03/15 [facility] [place] [phone] [place] Discharge Disposition: 01-Home or Self Care Attending Physician: Niranjan García MD Admitting Physician: Niranjan García MD Vital Signs Most recent to oldest [Reference Range]: 1 Temperature Tympanic [36.6-38.1 degC] 37.1 degC (06/03/15 10:22 AM) Peripheral Pulse Rate [60-100 bpm] 94 bpm (06/03/15 10:22 AM) Blood Pressure [90-140/60-90 mmHg] 122/70 mmHg (06/03/15 10:22 AM) SpO2 96 % (06/03/15 10:22 AM) Problem List Condition Effective Dates Status [...] of prostate 1987 Back surgery 1959 tonsillectomy 1935 Cystoscopies and dilatations 1OU, with AEDg73-stllmm bypass Social History Social History Type Response Smoking Status Former smoker; Tobacco use per day: Pack; Number of years: 101 1Quit in 1951 Assessment and Plan Extracted from: Title: Ambulatory Patient Education Author: Niranjan García MD Date: 06/03/15 Family Medicine Fall Prevention and Home Safety Falls cause injuries and can affect all age groups. It is possible to use preventive measures to significantly decrease the likelihood of falls. There are many simple measures which can make your home safer and prevent falls. OUTDOORS Repair cracks and edges of walkways and driveways. Remove high doorway thresholds. Trim shrubbery on the main path into your home. Have good outside lighting. Clear walkways of tools, rocks, debris, and clutter. Check that handrails are not broken and are securely fastened. Both sides of steps should have handrails. Have leaves, snow, and ice cleared regularly. Use sand or salt on walkways during winter months. In the garage, clean up grease or oil spills. BATHROOM Install night lights. Install grab bars by the toilet and in the tub and shower. Use non-skid mats or decals in the tub or shower. Place a plastic non-slip stool in the shower to sit on, if needed. Keep floors dry and clean up all water on the floor immediately. Remove soap buildup in the tub or shower on a regular basis. Secure bath mats with non-slip, double-sided rug tape. Remove throw rugs and tripping hazards from the floors. BEDROOMS Install night lights. Make sure a bedside light is easy to reach. Do not use oversized bedding. Keep a telephone by your bedside. Have a firm chair with side arms to use for getting dressed. Remove throw rugs and tripping hazards from the floor. KITCHEN Keep handles on pots and pans turned toward the center of the stove. Use back burners when possible. Clean up spills quickly and allow time for drying. Avoid walking on wet floors. Avoid hot utensils and knives. Position shelves so they are not too high or low. Place commonly used objects within easy reach. If necessary, use a sturdy step stool with a grab bar when reaching. Keep electrical cables out of the way. Do not use floor bahamian or wax that makes floors slippery. If you must use wax, use non-skid floor wax. Remove throw rugs and tripping hazards from the floor. STAIRWAYS Never leave objects on stairs. Place handrails on both sides of stairways and use them. Fix any loose handrails. Make sure handrails on both sides of the stairways are as long as the stairs. Check carpeting to make sure it is firmly attached along stairs. Make repairs to worn or loose carpet promptly. Avoid placing throw rugs at the top or bottom of stairways, or properly secure the rug with carpet tape to prevent slippage. Get rid of throw rugs, if possible. Have an perfect bind machine operator put in a light switch at the top and bottom of the stairs. OTHER FALL PREVENTION TIPS Wear low-heel or rubber-soled shoes that are supportive and fit well. Wear closed toe shoes. When using a stepladder, make sure it is fully opened and both spreaders are firmly locked. Do not climb a closed stepladder. Add color or contrast paint or tape to grab bars and handrails in your home. Place contrasting color strips on first and last steps. Learn and use mobility aids as needed. Install an electrical emergency response system. Turn on lights to avoid dark areas. Replace light bulbs that burn out immediately. Get light switches that glow. Arrange furniture to create clear pathways. Keep furniture in the same place. Firmly attach carpet with non-skid or double-sided tape. Eliminate uneven floor surfaces. Select a carpet pattern that does not visually hide the edge of steps. Be aware of all pets. OTHER HOME SAFETY TIPS Set the water temperature for 120 F (48.8 C). Keep emergency numbers on or near the telephone. Keep smoke detectors on every level of the home and near sleeping areas. Document Released: 04/27/2003 Document Revised: 11/05/2012 Document Reviewed: 07/26/2012 ExitCare Patient Information 2015 [employer]. This information is not intended to replace advice given to you by your health care provider. Make sure you discuss any questions you have with your health care provider. No follow up information was provided. Extracted from: Title: lumbar spinal stenosis, HTN Author: Niranjan García MD Date: 06/03/15 Impression and Plan Diagnosis Benign hypertension (DUE16-CL I10, Working, Medical). Lumbar spinal stenosis (WUR86-AY M48.06, Working, Medical). Chronic lumbar radiculopathy (FOR93-CY M54.16, Working, Medical). Neuropathy, peripheral (SUX49-LF G62.9, Working, Medical). Ataxic gait (YET03-QW R26.0, Working, Medical). Chronic lymphocytic leukemia (NIS52-OE C91.10, Working, Medical). Daily headache (HAS15-XY R51, Working, Medical). 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 Plan: 1) Stay off the Metoprolol. 2) Continue your other meds. 3) Healthy diet and daily exercise helps most things. 4) See me in 3 months and as needed.. Orders Orders (Selected) Outpatient Orders Ordered Office Visit Level 4 Est 05575: . Dx/Order Association Plan: Diagnosis: Ataxic gait Comment: Diagnosis: Benign hypertension Comment: Ordered: Office Visit Level 4 Est 07263; 06/03/15 10:43:00 VEHICLE FUEL SYSTEMS CONVERTER, Benign hypertension | Chronic lymphocytic leukemia | Daily headache | Lumbar spinal stenosis Diagnosis: Chronic lumbar radiculopathy Comment: Diagnosis: Chronic lymphocytic leukemia Comment: Ordered: Office Visit Level 4 Est 30429; 06/03/15 10:43:00 VEHICLE FUEL SYSTEMS CONVERTER, Benign hypertension | Chronic lymphocytic leukemia | Daily headache | Lumbar spinal stenosis Diagnosis: Daily headache Comment: Ordered: Office Visit Level 4 Est 76328; 06/03/15 10:43:00 VEHICLE FUEL SYSTEMS CONVERTER, Benign hypertension | Chronic lymphocytic leukemia | Daily headache | Lumbar spinal stenosis Diagnosis: Lumbar spinal stenosis Comment: Ordered: Office Visit Level 4 Est 45395; 06/03/15 10:43:00 VEHICLE FUEL SYSTEMS CONVERTER, Benign hypertension | Chronic lymphocytic leukemia | Daily headache | Lumbar spinal stenosis Diagnosis: Neuropathy, peripheral Comment: Diagnosis: TMJ syndrome Comment: End of Orders ."
--- OUTSIDE RECORDS SUMMARY | 2017-03-08 20:50 | External Medical Summary | Referral Summary ---
:1930 Author [facility] Address [address] [place] [address] [place] [address] Care Team Providers Name Role Phone Niranjan García Primary Care Physician Encounter VC Date(s): 02/11/15 - 02/11/15 [facility] [place] [phone] [place] Discharge Disposition: [...] tonsillectomy 1935 Cystoscopies and dilatations 1OU, with UHZz56-ewqogb bypass Social History Social History Type Response [...] for any changes. Visit a skin doctor (band cutter) every year for a skin exam. SEEK MEDICAL CARE IF: Your skin does not heal and becomes irritated, red, or bleeds. You notice any changes or new growths on your skin. Document Released: 08/03/2009 Document Revised: 09/21/2014 Document Reviewed: 06/17/2012 ExitCare Patient Information 2015 [facility]. This information is not intended to replace [...] Outpatient Orders Ordered Destruction premalignant lesion 1st 10288: Destruction premalignant lesion 2-14, Each 17553: Destruction premalignant lesion 2-14, Each 21577: Destruction premalignant lesion 2-14, Each 13334: Office Visit Level 2 Est 73817: . Dx/Order Association Plan: Diagnosis: Actinic keratoses Comment: Ordered: Destruction premalignant lesion 2-14, Each 81554; 12:14:00 CDT, 25, 1, Actinic keratoses Destruction premalignant lesion 2-14, Each 60624; 02/11/15 12:14:00 CDT, 1, Actinic keratoses Destruction premalignant lesion 2-14, Each 31990; 02/11/15 12:14:00 CDT, 1, Actinic keratoses Destruction premalignant lesion 1st 54627; 12:14:00 CDT, 1, Actinic keratoses Office Visit Level 2 Est 86401; 02/11/15 12:14:00 CDT, Basal cell carcinoma of skin | Visit for suture removal | Ataxic gait | Actinic keratoses Diagnosis: Ataxic gait Comment: Ordered: Office Visit Level 2 Est 34447; 02/11/15 12:14:00 CDT, Basal cell carcinoma of skin | Visit for suture removal | Ataxic gait | Actinic keratoses Diagnosis: Basal cell carcinoma of skin Comment: Ordered: Office Visit Level 2 Est 82798; 02/11/15 12:14:00 CDT, Basal cell carcinoma of skin | Visit for suture removal | Ataxic gait | Actinic keratoses Diagnosis: Visit for suture removal Comment: Ordered: Office Visit Level 2 Est 46932; 02/11/15 12:14:00 CDT, Basal cell carcinoma of skin | Visit for suture removal | Ataxic gait | Actinic keratoses End of Orders ."
--- OUTSIDE RECORDS SUMMARY | 2017-03-08 20:50 | External Medical Summary | Referral Summary ---
:1930 Author [facility] Address [address] [place] [address] [place] [address] Care Team Providers Name Role Phone Niranjan García Primary Care Physician Encounter VC Date(s): 05/03/15 - 05/03/15 [facility] [place] [phone] [place] Discharge Disposition: 01-Home or Self Care Attending Physician: Niranjan García MD Admitting Physician: Niranjan García MD Vital Signs Most recent to oldest [Reference Range]: 1 Temperature Tympanic [36.6-38.1 degC] 36.9 degC (05/03/15 1:20 PM) Peripheral Pulse Rate [60-100 bpm] 81 bpm (05/03/15 1:20 PM) Blood Pressure [90-140/60-90 mmHg] 130/74 mmHg (05/03/15 1:20 PM) SpO2 98 % (05/03/15 1:20 PM) Problem List Condition Effective Dates Status [...] Daily, # 45 tabs, 3 Refill(s), [facility] [facility] [id number] Start Date: 04/28/14 Stop Date: 04/23/15 Status: OrderedMisc Medication Daily, Cholestoff, 0 Refill(s) Start Date: 07/27/14 Status: Ordered Results Hematology Most recent to oldest [Reference Range]: 1 WBC [4.8-10.8 10*3/uL] 13.5 10*3/uL *HI* (05/03/15 2:30 PM) RBC [4.60-6.20] 4.72 (05/03/15 2:30 PM) Hgb [14.0-18.0 gm/dL] 16.3 gm/dL (05/03/15 2:30 PM) Hct [42.0-52.0 %] 46.4 % (05/03/15 2:30 PM) MCV [82.0-99.0 fL] 98.3 fL (05/03/15 2:30 PM) MCH [27.0-32.0 pg] 34.5 pg *HI* (05/03/15 2:30 PM) MCHC [32.0-36.0 gm/dL] 35.1 gm/dL (05/03/15 2:30 PM) RDW [11.5-14.5 %] 13.7 % (05/03/15 2:30 PM) Platelet [150-400 10*3/uL] 170 10*3/uL (05/03/15 2:30 PM) MPV [8.8-14.8 fL] 10.4 fL (05/03/15 2:30 PM) Neutrophils [51-75 %] 39 % *LOW* (05/03/15 2:30 PM) Lymphocytes [20-46 %] 54 % *HI* (05/03/15 2:30 PM) Monocytes [4-11 %] 6 % (05/03/15 2:30 PM) Eosinophils [0-4 %] 1 % (05/03/15 2:30 PM) Basophils [0-2 %] 0 % (05/03/15 2:30 PM) Neutro Absolute [1.90-7.00 10*3] 5.27 10*3 (05/03/15 2:30 PM) Lymph Absolute [0.80-3.30 10*3] 7.29 10*3 *HI* (05/03/15 2:30 PM) [place] Absolute [0.30-1.00 10*3] 0.81 10*3 (05/03/15 2:30 PM) Eos Absolute [0.00-0.50 10*3] 0.14 10*3 (05/03/15 2:30 PM) Baso Absolute [0.00-0.20 10*3] 0.00 10*3 (05/03/15 2:30 PM) Differential Manual *ABN* (05/03/15 2:30 PM) Chemistry Most recent to oldest [Reference Range]: 1 Sodium Lvl [135-144 mEq/L] 144 mEq/L (05/03/15 2:30 PM) Potassium Lvl [3.5-5.2 mEq/L] 4.4 mEq/L (05/03/15 2:30 PM) Chloride [99-111 mEq/L] 106 mEq/L (05/03/15 2:30 PM) CO2 [23-31 mEq/L] 28 mEq/L (05/03/15 2:30 PM) AGAP [3-20] 10 (05/03/15 2:30 PM) BUN [8-26 mg/dL] 19 mg/dL (05/03/15 2:30 PM) Glucose Lvl [70-99 mg/dL] 78 mg/dL (05/03/15 2:30 PM) Creatinine Lvl [0.72-1.25 mg/dL] 0.84 mg/dL (05/03/15 2:30 PM) eGFR [>60 mL/min] >60 mL/min 1 (05/03/15 2:30 PM) Calcium Lvl [8.9-10.5 mg/dL] 9.4 mg/dL (05/03/15 2:30 PM) 1Result Comment: Multiply eGFR results by 1.21 for race. Immunizations Vaccine Date Refusal Reason influenza virus [...] tonsillectomy 193 Cystoscopies and dilatations 1OU, with XQXy80-bdghkx bypass Social History Social History Type Response Smoking Status Former smoker; Tobacco use per day: Pack; Number of years: 101 1Quit in 1951 Assessment and Plan Extracted from: Title: Ambulatory Patient Education Author: Niranjan García MD Date: Dentistry Temporomandibular Problems Temporomandibular joint (TMJ) dysfunction means there are problems with the joint between your jaw and your skull. This is a joint lined by cartilage like other joints in your body but also has a small disc in the joint which keeps the bones from rubbing on each other. These joints are like other joints and can get inflamed (sore) from arthritis and other problems. When this joint gets sore, it can cause headaches and pain in the jaw and the face. CAUSES Usually the arthritic types of problems are caused by soreness in the joint. Soreness in the joint can also be caused by overuse. This may come from grinding your teeth. It may also come from mis-alignment in the joint. DIAGNOSIS Diagnosis of this condition can often be made by history and exam. Sometimes your caregiver may need X-rays or an MRI scan to determine the exact cause. It may be necessary to see your dentist to determ ine if your teeth and jaws are lined up correctly. TREATMENT Most of the time this problem is not serious; however, sometimes it can persist (become chronic). When this happens medications that will cut down on inflammation (soreness) help. Sometimes a shot of co rtisone into the joint will be helpful. If your teeth are not aligned it may help for your dentist to make a splint for your mouth that can help this problem. If no physical problems can be found, the p roblem may come from tension. If tension is found to be the cause, biofeedback or relaxation techniques may be helpful. HOME CARE INSTRUCTIONS Later in the day, applications of ice packs may be helpful. Ice can be used in a plastic bag with a towel around it to prevent frostbite to skin. This may be used about every 2 hours for 20 to 30 m inutes, as needed while awake, or as directed by your caregiver. Only take biat-xhj-rulfbym or prescription medicines for pain, discomfort , or fever as directed by your caregiver. If physical therapy was prescribed, follow your caregiver's directions. Wear mouth appliances as directed if they were given. Document Released: 01/30/2002 Document Revised: 07/29/2012 Document Reviewed: 05/09/2009 [facility] Patient Information 2015 [employer] [facility]. This information is not intended to replace advice given to you by your health care provider. Make sure you discuss any questions you have with your health care provider. Family Medicine Spinal Stenosis Spinal stenosis is an abnormal narrowing of the canals of your spine (vertebrae ). CAUSES Spinal stenosis is caused by areas of bone pushing into the central canals of your vertebrae. This condition can be present at (congenital). It also may be caused by arthritic deterioration of your vertebrae (spinal degeneration) . SYMPTOMS Pain that is generally worse with activities, particularly standing and walking. Numbness, tingling, hot or cold sensations, weakness, or weariness in your legs. Frequent episodes of falling. A foot-slapping gait that leads to muscle weakness. DIAGNOSIS Spinal stenosis is diagnosed with the use of magnetic resonance imaging (MRI) or computed tomography (CT). TREATMENT Initial therapy for spinal stenosis focuses on the management of the pain and other symptoms associated with the condition. These therapies include: Practicing postural changes to lessen pressure on your nerves. Exercises to strengthen the core of your body. Loss of excess body weight. The use of nonsteroidal anti-inflammatory medicines to reduce swelling and inflammation in your nerves. When therapies to manage pain are not successful, surgery to treat spinal stenosis may be recommended. This surgery involves removing excess bone, which puts pressure on your nerve roots. During this mar rgery (laminectomy), the posterior moody arch (lamina) and excess bone around the facet joints are removed. Document Released: 07/27/2004 Document Revised: 09/21/2014 Document Reviewed: 08/15/2013 ExitCare Patient Information 2015 [employer]. This information is not intended to replace advice given to you by your health care provider. Make sure you discuss any questions you have with your health care provider. No follow up information was provided. Extracted from: Title: left TMJ syndrome, headache, HTN Author: Niranjan García MD Date: Impression and Plan Diagnosis Bad headache (JWF60-DJ R51, Working, Medical). TMJ syndrome (UVS04-XR M26.69, Working, Medical). Benign hypertension (LWO22-QV I10, Working, Medical). Lumbar spinal stenosis (WNA73-XJ M48.06, Working, Medical). Head contusion (ESL64-SF S00.93XA, Working, Medical). Chronic lymphocytic leukemia (UUI69-GK C91.10, Working, Medical). Plan: 1) You need a TMJ splint to wear at night. 2) you may take Tylenol as needed for headaches. 3) your CT scan looked unchanged. 4) Your lab was drawn and is still pending. 5) See me in one month for a recheck. 6) Continue your routine meds. 7) Try an ice bag off and on over the left ear region for the headache.. Orders Orders (Selected) Outpatient Orders Ordered BMP: CBC w/ Differential: CRP C-Reactive Protein: Office Visit Level 5 Est 25605: Discontinued Office Visit Level 4 Est 66792: . Dx/Order Association Plan: Diagnosis: Bad headache Comment: Ordered: CRP C-Reactive Protein; Blood, Routine Collect, 13:55:00 FORESTRY AND WILDLIFE MANAGER, Once, Stop date 05/03/15 13:55:00 FORESTRY AND WILDLIFE MANAGER, Lab Collect, Bad headache Office Visit Level 5 Est 49064; 05/03/15 15:02:00 FORESTRY AND WILDLIFE MANAGER, Head contusion | Bad headache | TMJ syndrome | Benign hypertension Discontinued: Office Visit Level 4 Est 05491; 05/03/15 14:39:00 FORESTRY AND WILDLIFE MANAGER, Head contusion | Bad headache | TMJ syndrome | Lumbar spinal stenosis Diagnosis: Benign hypertension Comment: Ordered: BMP; Blood, Routine Collect, 05/03/15 13:55:00 FORESTRY AND WILDLIFE MANAGER, Once , Stop date 05/03/15 13:55:00 FORESTRY AND WILDLIFE MANAGER, Lab Collect, Benign hypertension Office Visit Level 5 Est 76957; 05/03/15 15:02:00 FORESTRY AND WILDLIFE MANAGER, Head contusion | Bad headache | TMJ syndrome | Benign hypertension Diagnosis: Chronic lymphocytic leukemia Comment: Ordered: CBC w/ Differential; Blood, Routine Collect, 05/03/15 13 :55:00 FORESTRY AND WILDLIFE MANAGER, Once, Stop date 05/03/15 13:55:00 FORESTRY AND WILDLIFE MANAGER, Lab Collect, Chronic lymphocytic leukemia Diagnosis: Head contusion Comment: Ordered: Office Visit Level 5 Est 11437; 05/03/15 15:02:00 FORESTRY AND WILDLIFE MANAGER, Head contusion | Bad headache | TMJ syndrome | Benign hypertension Discontinued: Office Visit Level 4 Est 96658; 05/03/15 14:39:00 FORESTRY AND WILDLIFE MANAGER, Head contusion | Bad headache | TMJ syndrome | Lumbar spinal stenosis Diagnosis: Lumbar spinal stenosis Comment: Discontinued: Office Visit Level 4 Est 26787; 05/03/15 14:39:00 FORESTRY AND WILDLIFE MANAGER, Head contusion | Bad headache | TMJ syndrome | Lumbar spinal stenosis Diagnosis: TMJ syndrome Comment: Ordered: Office Visit Level 5 Est 36327; 05/03/15 15:02:00 FORESTRY AND WILDLIFE MANAGER, Head contusion | Bad headache | TMJ syndrome | Benign hypertension Discontinued: Office Visit Level 4 Est 03909; 05/03/15 14:39:00 FORESTRY AND WILDLIFE MANAGER, Head contusion | Bad headache | TMJ syndrome | Lumbar spinal stenosis End of Orders ."
--- OUTSIDE RECORDS SUMMARY | 2017-03-08 20:51 | External Medical Summary | Referral Summary ---
:1930 Author [facility] Address [address] [place] [address] [place] [address] Care Team Providers Name Role Phone Niranjan García Primary Care Physician Encounter VC Date(s): 10/26/14 - 10/26/14 [facility] [place] [phone] [place] Discharge Disposition: [...] Daily, # 45 tabs, 3 Refill(s), Pharmacy: [id number] Start Date: 04/28/14 Stop Date: 04/23/15 Status: [...] 10*3] 10.05 10*3 *HI* (10/26/14 10:13 AM) [place] Absolute [0.30-1.00 10*3] 0.30 10*3 (10/26/14 10:13 [...] tonsillectomy 1935 Cystoscopies and dilatations 1OU, with RWLw56-muokuz bypass Social History Social History Type Response [...] for any changes. Visit a skin doctor (second language tutor ) every year for a skin exam. SEEK MEDICAL CARE IF: Your skin does not heal and becomes irritated, red, or bleeds. You notice any changes or new growths on your skin. Document Released: 08/03/2009 Document Revised: 07/29/2012 Document Reviewed: 06/17/2012 [facility] Patient Information 2014 [employer] [facility]. No follow up information was provided. Extracted [...] Each : Office Visit Level 5 Est 91470: Future (On Hold) CBC w/ Differential: CMP: Carotid Duplex US Bilateral: Lipid Panel: Routine Urinalysis: . Dx/Order Association Plan: Diagnosis: Actinic keratoses Comment: Ordered: Destruction premalignant lesion 2-14, Each ; 9:48:00 CDT, 1, Actinic keratoses Destruction premalignant lesion 1st 85825; 9:48:00 CDT, 1, Actinic keratoses Modified: Office Visit Level 5 Est 55111; 10/26/14 9:40:00 CDT, 25, CLL | CAD | Carotid artery stenosis | Actinic keratoses | Benign hypertension Diagnosis: BPPV (benign paroxysmal positional vertigo) Comment: Modified: Office Visit Level 5 Est 29064; 10/26/14 9:40:00 CDT, 25, CLL | CAD | Carotid artery stenosis | Actinic keratoses | Benign hypertension Diagnosis: Benign hypertension Comment: Modified: Office Visit Level 5 Est 54945; 10/26/14 9:40:00 CDT, 25, CLL | CAD | Carotid artery stenosis | Actinic keratoses | Benign hypertension Diagnosis: CAD Comment: Modified: Office Visit Level 5 Est 90781; 10/26/14 9:40:00 CDT, 25, CLL | CAD | Carotid artery stenosis | Actinic keratoses | Benign hypertension Diagnosis: CLL Comment: Modified: Office Visit Level 5 Est 47679; 10/26/14 9:40:00 CDT, 25, CLL | CAD | Carotid artery stenosis | Actinic keratoses | Benign hypertension Diagnosis: Carotid artery stenosis Comment: Modified: Office Visit Level 5 Est 44277; 10/26/14 9:40:00 CDT, 25, CLL | CAD | Carotid artery stenosis | Actinic keratoses | Benign hypertension Diagnosis: Chronic lumbar radiculopathy Comment: Modified: Office Visit Level 5 Est 28562; 10/26/14 9:40:00 CDT, 25, CLL | CAD | Carotid artery stenosis | Actinic keratoses | Benign hypertension Diagnosis: High cholesterol Comment: Modified: Office Visit Level 5 Est 89065; 10/26/14 9:40:00 CDT, 25, CLL | CAD | Carotid artery stenosis | Actinic keratoses | Benign hypertension Diagnosis: Lumbar spinal stenosis Comment: Modified: Office Visit Level 5 Est 46643; 10/26/14 9:40:00 CDT, 25, CLL | CAD | Carotid artery stenosis | Actinic keratoses | Benign hypertension Diagnosis: Neuropathy, peripheral Comment: Modified: Office Visit Level 5 Est 02518; 10/26/14 9:40:00 CDT, 25, CLL | CAD [...]
[2017-03-08] MEDS ORDERED: FentaNYL 100 MCG/2 ML INJECTION IVP ONE (20:57)
--- NOTE | 2017-03-08 20:58 | Emergency Department Report ---
General Adult HPI - General Chief complaint: Fall Stated complaint: Fall, hip pain Time Seen by Provider: 03/08/17 20:43 Source: patient, family Mode of arrival: EMS Limitations: no limitations - History of Present Illness HPI narrative: 86-year-old male presents to the emergency department with a chief complaint of pain in his left hip. Patient was working in the garage when he lost his balance and fell landing on his left hip. Pain is mild. Pain is dull. No radiation. Incident occurred immediately prior to arrival to the emergency department today. Symptoms have been persistent in nature since onset. No other injuries. No other complaints or associated symptoms. - Related Data Home Medications Medication Instructions Recorded Confirmed Colestipol [Colestid] 1 gm PO DAILY 03/08/17 03/08/17 Vitamin B12 1 tab PO DAILY 03/08/17 03/08/17 Vitamin D 1 tab PO DAILY 03/08/17 03/08/17 Allergies Allergy/AdvReac Type Severity Reaction Status Date / Time Sulfa (Sulfonamide Allergy Intermediate RASH Verified 03/15/13 16:57 Antibiotics) amoxicillin Allergy Unknown Verified 03/15/13 16:57 ciprofloxacin Allergy Unknown Verified 03/15/13 16:57 nitrofurantoin Allergy Unknown Verified 03/15/13 16:57 piroxicam Allergy Unknown Verified 03/15/13 16:57 omeprazole AdvReac Mild UPSET Verified 03/15/13 16:57 STOMACH simvastatin AdvReac Mild CAUSES Verified 03/15/13 16:57 WEAKNESS azithromycin AdvReac Unknown LOSS OF Unverified 03/15/13 16:57 BALANCE ciprofloxacin HCl Allergy Unknown Uncoded 03/15/13 16:57 fluoxetine HCl Allergy Unknown Uncoded 03/15/13 16:57 Nitrofurantoin Macrocrystal Allergy Unknown Uncoded 03/15/13 16:57 Chlorpheniramine Polistirex AdvReac Mild DIZZINESS Uncoded 03/15/13 16:57 Hydrocodone Polistrx AdvReac Mild DIZZINESS Uncoded 03/15/13 16:57 meperidine HCl AdvReac Mild DIZZY Uncoded 03/15/13 16:57 omeprazole magnesium AdvReac Mild UPSET Uncoded 03/15/13 16:57 STOMACH Review of Systems Constitutional: Denies: fever, chills Eyes: Denies: eye pain, vision change ENT: Denies: ear pain, throat pain Cardiovascular: Denies: chest pain, palpitations Respiratory: Denies: cough, dyspnea Gastrointestinal: Denies: abdominal pain, nausea, vomiting, diarrhea Genitourinary: Denies: urgency, dysuria Musculoskeletal: Reports: arthralgia. Denies: back pain Integumentary: Denies: erythema, rash Neurological: Denies: headache, numbness, paresthesias Psychiatric: Denies: anxiety, depression Endocrine: Denies: fatigue, heat or cold intolerance Hematological/Lymphatic: Denies: easy bleeding, easy bruising Allergic/Immunologic: Denies: facial swelling, urticaria PFSH Coronary artery disease, hypertension, hyperlipidemia, leukemia Surgical History: QUINTON, Back Surgery, CABG Family History: Reviewed and Noncontributory. - Social History Smoking status: Never smoker Substance use type: does not use Alcohol intake frequency: does not drink Physical Exam - Limitations Limitations: no limitations - General General appearance: alert, in no apparent distress - Normal Exams: Head:: Normocephalic without trauma Eyes:: Pupils are PERRLA w/ EOMI, No scleral icterus, irritation, or foreign bodies noted ENMT:: No facial trauma, nasal exudates, pharyngeal erythema, or exudates are noted Dental: No fractured, loose, or missing teeth noted Neck:: Full range of motion, without adenopathy, JVD, bruits or thyromegaly Chest/Respirations:: Clear all dhillon, with good airflow, and symmetry bilaterally Cardiovascular:: Regular rate and rhythm, without murmur or gallop, Pulses 2+ all extremities, capillary refill, <2 seconds all extremities Abdomen:: Bowel sounds positive, soft, non-tender, non-distended, no hepatosplenomegaly, masses or bruits noted Lymphatic:: No lymphadenopathy, or lymphedema noted Musculoskeletal:: No tenderness, or deformity noted, good range of motion (back - no midline tenderness or deformity of the cervical/thoracic/lumbar spine.), all extremities (Pelvis stable to compression. L Hip - decreased range of motion secondary to pain. Skin is intact. Pulses intact. Sensation intact. Capillary refill less than 2. Generalized tenderness to palpation over the hip. No other tenderness in the left lower extremity.) Integumentary:: No rashes, hives, or bruising noted, hair and nails, without abnormality Neurological:: Patient is alert, and oriented, cranial nerves, motor/sensory/ cerebellar, exams w/o gross deficits, to observation Psychiatric:: Patient exhibits, appropriate attention, emotion and affect Course Vital Signs Temperature 97.3 F 03/08/17 20:32 Pulse Rate 91 03/08/17 20:32 Respiratory Rate 22 03/08/17 20:32 Blood Pressure 174/79 H 03/08/17 20:32 Pulse Oximetry 96 03/08/17 20:32 Temperature 97.2 F 03/08/17 22:53 Pulse Rate 92 03/08/17 22:53 Respiratory Rate 24 03/08/17 22:53 Blood Pressure 148/96 H 03/08/17 22:53 Pulse Oximetry 96 03/08/17 22:53 Medical Decision Making - MDM Narrative Medical decision making narrative: Imaging is discussed in detail with the patient and family and questions are answered. Patient is given analgesic pain medication with him 1 hour of arrival to the emergency department. Patient is discussed with John Coleman from orthopedics and Dr. Marquez will see the patient in consultation. They request admission to the hospitalist service. Patient is discussed with Dr. John Patel and admitted to the service of Dr. Snowden in improved condition. Patient and family are in agreement with the current plan of management. No further orders from accepting or consulting physicians were in agreement with the current plan of management. Preoperative labs were ordered in the emergency department and will be followed by Dr. Patel. - Differential Diagnosis sprain, strain, fracture, dislocation - Lab Data Result diagrams: 03/08/17 22:41 03/08/17 22:41 - Radiology Data Pelvis with left hip x-ray: Left femoral neck fracture otherwise unremarkable. - EKG Data EKG #1 EKG results narrative: Sinus rhythm. 92 bpm. No STEMI. Disposition Clinical Impression: Closed left hip fracture Qualifiers: Encounter type: initial encounter Qualified Code(s): S72.002A - Fracture of unspecified part of neck of left femur, initial encounter for closed fracture Disposition: To [facility] Condition: Stable Time of Disposition: 21:00 (Admit. Dr. Fernandez. ) - Seen By: physician
--- NOTE | 2017-03-08 21:55 | Orthopedic Consult Note ---
Orthopedic Consultation HPI - Consultation Info Consult Date: 03/09/17 Attending Physician: Ruthie Marquez MD Consult Reason: fracture - History of Present Illness Mr. Ramos is an 86 year old male who fell in his garage 03/08/17 resulting in a left femoral neck fracture. Ortho was consulted for definitive surgical treatment. He locates his pain in the left hip, worse with activity and better with rest, immobilization or IV pain meds. Family denies previous hip surgery. He is unable to provide history due to dementia; therefore, it is taken from the spouse and the hospital records. Review of Systems ROS unobtainable: due to mental status PFSH CLL, CABG, CAD, dementia - Social History Housing: house Household members: spouse Medications Home Medications Medication Instructions Recorded Confirmed Type Colestipol [Colestid] 1 gm PO DAILY 03/08/17 03/08/17 History Vitamin B12 1 tab PO DAILY 03/08/17 03/08/17 History Vitamin D 1 tab PO DAILY 03/08/17 03/08/17 History Allergies Allergy/AdvReac Type Severity Reaction Status Date / Time Sulfa (Sulfonamide Allergy Intermediate RASH Verified 03/15/13 16:57 Antibiotics) amoxicillin Allergy Unknown Verified 03/15/13 16:57 ciprofloxacin Allergy Unknown Verified 03/15/13 16:57 nitrofurantoin Allergy Unknown Verified 03/15/13 16:57 piroxicam Allergy Unknown Verified 03/15/13 16:57 omeprazole AdvReac Mild UPSET Verified 03/15/13 16:57 STOMACH simvastatin AdvReac Mild CAUSES Verified 03/15/13 16:57 WEAKNESS azithromycin AdvReac Unknown LOSS OF Unverified 03/15/13 16:57 BALANCE ciprofloxacin HCl Allergy Unknown Uncoded 03/15/13 16:57 fluoxetine HCl Allergy Unknown Uncoded 03/15/13 16:57 Nitrofurantoin Macrocrystal Allergy Unknown Uncoded 03/15/13 16:57 Chlorpheniramine Polistirex AdvReac Mild DIZZINESS Uncoded 03/15/13 16:57 Hydrocodone Polistrx AdvReac Mild DIZZINESS Uncoded 03/15/13 16:57 meperidine HCl AdvReac Mild DIZZY Uncoded 03/15/13 16:57 omeprazole magnesium AdvReac Mild UPSET Uncoded 03/15/13 16:57 STOMACH Orthopedic Exam Vital signs: Temperature 97.3 F 03/08/17 20:32 Pulse Rate 91 03/08/17 20:32 Respiratory Rate 22 03/08/17 20:32 Blood Pressure 174/79 H 03/08/17 20:32 Pulse Oximetry 96 03/08/17 20:32 - Constitutional General Appearance: Present: alert, disheveled, no acute distress, disoriented - Respiratory Exam Present: non-labored - Cardiovascular Exam Present: pedal pulses intact Capillary Refill: < 2-3 Seconds - Abdominal Exam Absent: tenderness - Extremities Exam Present: pulses intact, tenderness, joint swelling. Absent: calf tenderness Comments: Left hip TTP over greater trochanter. positive log roll. leg lengths are equal. - Integumentary Exam Present: pink, warm, dry - Lymphatic Lymphatic: Absent: lymphedema - Neurological Exam Present: intact to light touch - Psychiatric Exam Present: normal affect - Labs Result Diagrams: 03/09/17 04:09 03/09/17 05:44 - Diagnostic results Hip x-ray: image reviewed (left nondisplaced femoral neck fracture vizulaized.) Impression and Recommendation (1) Nondisplaced fracture of neck of left femur Current visit: Yes Status: Acute Admit to hospital service for clearance. Ortho plan is to take to OR 03/09/17 for cannulated screws. NPO after midnight, consent, pain control, bed rest, SCD's and lab work. labs reviewed. Dr. Marquez has discussed the surgery with his spouse and appropriate consent will be provided. Risks and benefits of the recommended procedure were discussed with the patient and/or patient's legal patient services representative. They include: infection, nerve damage, artery damage, stroke, TX, PE, DVT, ileus, continued pain, or risk that the injury may not heal despite surgery. There are also medical risks of anesthesia. Risks are not limited to the above mentioned alone. Hospital Course Summary Disclaimer: The visit summary below is not to be considered part of the above Progress Note.
[2017-03-08] MEDS: SALINE FLUSH 10ml SYRINGE IVF PRN (22:01)
[2017-03-08] MEDS ORDERED: ACETAMINOPHEN 325 MG TABLET PO PRN (22:54)
[2017-03-08] MEDS ORDERED: ONDANSETRON 4 MG/2 ML INJECTION IVP PRN (22:54)
[2017-03-08 23:01] VITALS: BMI 26.8
[2017-03-08] MEDS: NS 1,000 ML IV SCH (23:36)
[2017-03-08] MEDS: MORPHINE SULFATE 4mg INJECTION IVP PRN (23:37)
--- NOTE | 2017-03-09 00:54 | History & Physical Report ---
<John Patel Carey - Last Filed: 03/09/17 00:50> History of Present Illness Date: 03/09/17 Chief complaint: left hip pain HPI: This is a 86 y/o male with very limited gait who ambulates with a walker. The patient was in his garage sitting in a chair and decided to get up without his 's assistance and fell landing on his left hip. The patient presents to the ED and is found to have an impacted left femoral neck fracture. The patient has a historyof CAD with previous CABG. The patient has undescribed dementia per and is not a good historian. Per the his level of activity is limitied but no change. no pnd, no orthopnea. the patient does not demonstrate many METS on a daily basis chronically. At this time the patient is to be admitted for surgical repair of his fractured hip. Review of Systems Review of systems: truly not able to obtain. per with no recent fevers, no change in activity level, no cough, no complaints of chest pain, no nausea or vomiting, no change in bm, no increased edema to the legs. The patient is severely limited in his ADLs and is highly dependent on the for activites. [facility] Patient Stated Medical History Other HEENT Yes: Wears Bilat hearing aids Other Yes: Urolumendoprosethis Shingles Yes Other Yes: Chronic Lukemia Surgical History: CABG, cholecystectomy, lumbar spine surgery x 5 Family History: non contributory at this age in life - Social History Smoking status: Former smoker Housing: house Household members: spouse service: Yes Current occupational status: retired Current occupation: previously a railroad switchman Medications Home Medications Medication Instructions Recorded Confirmed Type Colestipol [Colestid] 1 gm PO DAILY 03/08/17 03/08/17 History Vitamin B12 1 tab PO DAILY 03/08/17 03/08/17 History Vitamin D 1 tab PO DAILY 03/08/17 03/08/17 History Allergies Allergy/AdvReac Type Severity Reaction Status Date / Time Sulfa (Sulfonamide Allergy Intermediate RASH Verified 03/15/13 16:57 Antibiotics) amoxicillin Allergy Unknown Verified 03/15/13 16:57 ciprofloxacin Allergy Unknown Verified 03/15/13 16:57 nitrofurantoin Allergy Unknown Verified 03/15/13 16:57 piroxicam Allergy Unknown Verified 03/15/13 16:57 omeprazole AdvReac Mild UPSET Verified 03/15/13 16:57 STOMACH simvastatin AdvReac Mild CAUSES Verified 03/15/13 16:57 WEAKNESS azithromycin AdvReac Unknown LOSS OF Unverified 03/15/13 16:57 BALANCE ciprofloxacin HCl Allergy Unknown Uncoded 03/15/13 16:57 fluoxetine HCl Allergy Unknown Uncoded 03/15/13 16:57 Nitrofurantoin Macrocrystal Allergy Unknown Uncoded 03/15/13 16:57 Chlorpheniramine Polistirex AdvReac Mild DIZZINESS Uncoded 03/15/13 16:57 Hydrocodone Polistrx AdvReac Mild DIZZINESS Uncoded 03/15/13 16:57 meperidine HCl AdvReac Mild DIZZY Uncoded 03/15/13 16:57 omeprazole magnesium AdvReac Mild UPSET Uncoded 03/15/13 16:57 STOMACH Exam Vital Signs: Temperature 97.1 F 03/08/17 22:50 Pulse Rate 84 03/08/17 22:50 Respiratory Rate 22 03/08/17 22:50 Blood Pressure 168/70 H 03/08/17 22:50 Pulse Oximetry 98 03/08/17 22:50 Telemetry Rhythm: Sinus Rhythm Height/Weight/BMI: Height 1.83 m Weight 89.7 kg Body Mass Index 26.8 - Constitutional Present: mild distress, well nourished, well developed, average body habitus, cooperative - Routine HEENT Exam Head: Present: normocephalic, atraumatic Eye: Present: EOMI, conjunctivae pink ENT: Present: mucous membranes dry - Routine Neck Exam Present: full ROM - Routine Respiratory Exam Present: CTA bilaterally. Absent: rales, respiratory distress, wheezes - Routine Cardiovascular Exam Present: RRR. Absent: murmur - Routine Abdominal Exam Present: soft, non tender. Absent: distended - Routine Extremities Exam Absent: cyanosis, edema, full ROM Comments: patient with signifcant pain to the left hip. limited rom, - Routine Back/Spine/Pelvis Exam Back/Spine: Absent: full ROM - Routine Skin Exam Present: intact - Routine Neurological Exam Present: alert, CN II-XII intact, normal reflexes, altered mental status. Absent: oriented X3, motor deficit - Routine Psychiatric Exam Absent: normal affect Results - Labs CBC & Chem 7: 03/08/17 22:41 03/08/17 22:41 Labs: note that patient with a history of CLL and CBC would demonstrate predominate lymphocytes. Microbiology Results: Microbiology 03/08/17 22:21 Urine, Voided (Cc/notcc) Urine Culture - Preliminary Culture Initiated - Results Pending - Imaging and Cardiology Chest x-ray Additional comments: no acute cardiopulmonary process pelvis and left hip Additional comments: fracture surgical neck Assessment and Plan (1) Nondisplaced fracture of neck of left femur Current visit: Yes Status: Acute 03/09/17 00:58 this is non syncopal event. pre op labs are reasuring. patient does have a UTI which we will treat. from a pre op perspective. there are no indications of unstable cardiac status. having stated this he does have cardiac disease. he is not a good historian and he has limited METS. he is aleast a mod risk for surgery. The question does he need to see cardiology prior to surgery? From my perspective he is okay for surgery with close post op monitoring. Family needs to be aware of risk for cardiac event perioperatively. (2) CLL (chronic lymphocytic leukemia) Current visit: Yes Status: Acute 03/09/17 01:00 currently not treated and not exacerbated. no additional concerns regarding this at this time (3) Coronary artery disease Current visit: Yes Status: Acute 03/09/17 01:00 patient is s/p CABG. med list would not inform cardiac meds currently. Hard to belive. have pharmacy confirm this in am. If patient is on b manasa he needs this prior to surgery per SKIP protocol. Otherwise would be reasonable to place on telemetry post op. (4) Dementia Current visit: Yes Status: Acute 03/09/17 01:01 patient with altered cognition of uniown significance. protective of patient. to be aware of post op. aware that heis Hard of hearing which contributes. to his underlying congnition. DVT Prophylaxis: SCD's GI Prophylaxis: Protonix Hospital Course Summary Disclaimer: The visit summary below is not to be considered part of the above Progress Note. <Yesica Fernandez - Last Filed: 03/09/17 09:35> History of Present Illness Date: 03/09/17 [facility] Patient Stated Medical History Other HEENT Yes: Wears Bilat hearing aids Other Yes: Urolumendoprosethis Shingles Yes Other Yes: Chronic Lukemia Exam Vital Signs: Temperature 97.4 F 03/09/17 08:00 Pulse Rate 84 03/09/17 08:00 Respiratory Rate 20 03/09/17 08:00 Blood Pressure 171/91 H 03/09/17 08:00 Pulse Oximetry 94 03/09/17 08:00 Height/Weight/BMI: Height 6 ft Weight 198 lb 6.656 oz Body Mass Index 26.8 Results - Labs CBC & Chem 7: 03/09/17 04:09 03/09/17 05:44 Microbiology Results: Microbiology 03/08/17 22:21 Urine, Voided (Cc/notcc) Urine Culture - Preliminary Culture Initiated - Results Pending - ECG Data Tracing #1 His EKG was reviewed he shows a sinus rhythm with a right bundle branch block left it anterior fascicular block. Discussed with Dr. García there are no recent EKGs for comparison. - Imaging and Cardiology Chest x-ray Status: image reviewed by me Additional comments: Sternal wiring in place, the lungs are clear, there is no effusion or infiltrate noted. Assessment and Plan (1) Nondisplaced fracture of neck of left femur Current visit: Yes Status: Acute (2) CLL (chronic lymphocytic leukemia) Current visit: Yes Status: Acute (3) Coronary artery disease Current visit: Yes Status: Acute (4) Dementia Current visit: Yes Status: Acute Assessment and Plan: The above has been reviewed with the following additions. Information came from the patient, patient's , Dr. García and Dr. Marquez. The patient is a very pleasant 86-year-old white male who is a poor historian. 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 While in the garage, sitting in a chair he stood up and fell and landed on his left hip. He presented to the emergency department with an impacted left femoral neck fracture. Past medical history: Shingles Unspecified dementia Hearing loss requiring hearing aids Chronic lymphocytic leukemia Past surgical history: Previous prostate surgery requiring a UroLume endoprosthesis-Dr. Rueda was his urologist in [place]. According to the he requires a urologist to place a [place]. Coronary artery disease status post CABG 6 in 2001. He has been stable since that time, he has not been followed by a on car supervisor. In discussing the patient with Dr. García, he has not complained of chest pain or required and EKG as an outpatient for over 3 years. Cholecystectomy Lumbar spine surgery 5 Medications were reviewed, he is not on cardiac meds. Allergies were reviewed and are extensive- many do not appear to be true allergies. It should be noted he received 1 dose of ceftriaxone in the ED without difficulty. Personal history: He is a former smoker, he lives at home with his . He is a retired railroad switchman. Immunizations: Td 10/29/2013 Prevnar 13 2013 Pneumococcal vaccine 23 Valent 2008 He has not had a Tdap, or this year's flu vaccine Family history: His father at the age of 81 from heart disease, his mother lived to be 95, she did have a stroke at some point. Review of systems: The patient denies fevers, chills or sweats HEENT: No headaches, no sinus problems, no sinus drainage, no visual changes, no blurred vision, he does have poor dentition, no sore throat, no sores in the mouth. Lungs: No shortness of breath, no dyspnea on exertion, no cough, no sputum production. CV: No chest pain,no palpitations, no swelling of the extremities GI: No nausea, no vomiting, no diarrhea, no constipation,no blood in the stool, no dark-colored stools, no bright red blood per rectum. Last colonoscopy was many years ago . : No dysuria, no hematuria, no flank pain. He does have some urinary incontinence and some "dribbling". Musculoskeletal: He does have numbness and tingling in his legs secondary to his neuropathy. He has problems with his gait secondary to ataxia. It appears he has frequent falls. He complains of some pain related to his left hip fracture relieved with IV pain medication. Skin: No skin rash In general, the patient is alert and pleasant, cooperative with exam, and in no respiratory distress. HEENT: Head is atraumatic, normocephalic, no conjunctival petechiae, no oral thrush, mucous membranes are moist and pink. He has poor oral dentition. Lungs: Clear to auscultation without wheezes, crackles or rhonchi, breath sounds are markedly decreased CV: Regular rate and rhythm without murmur with distant heart tones Abdomen: Soft, nontender, bowel sounds are present, there is no guarding no rebound. Extremities: No clubbing, no cyanosis, no edema. Skin: Warm and dry no sign of rash Neuro: Patient is alert Impression: Nondisplaced fracture of the neck of the left femur CLL Coronary artery disease, status post CABG in 2001 Dementia Peripheral neuropathy secondary to multiple back surgeries Status post prostate surgery with a UroLume endoprosthesis in place Multiple drug allergies and intolerances Immunization status Asymptomatic bacteriuria Recommendations: As discussed with Dr. García, Dr. Marquez, the patient and his , he is medically cleared for surgery after reviewing his lab work, EKG and chest x- ray. Toes of his previous cardiac history he has at increased risk of a cardiac event perioperatively but given the urgency of the need for surgery, surgery should not be delayed. We'll give the patient a Tdap and flu vaccine. The patient has no signs or symptoms of a urinary tract infection, and does not require antibiotics for his UA His white blood cell count is elevated secondary to his CLL and does not require treatment at this time. Hospital Course Summary Disclaimer: The visit summary below is not to be considered part of the above Progress Note.
[2017-03-09] MEDS ORDERED: CEFTRIAXONE 1 G in NS 100 ML IV SCH (02:00)
[2017-03-09] MEDS: MORPHINE SULFATE 4mg INJECTION IVP PRN ×2 (05:01→14:34)
--- NOTE | 2017-03-09 08:18 | XRay Report ---
Indication: hip fx PROCEDURE: XR chest 1V: Encounter: Initial Comparison: None FINDINGS: The lungs are clear. There is no abnormal airspace opacity, pleural effusion or pneumothorax identified. The heart size, pulmonary vasculature and mediastinum are within normal limits. Prior CABG. IMPRESSION: No acute cardiopulmonary abnormality. .
--- NOTE | 2017-03-09 08:19 | XRay Report ---
Indication: Fall with left hip pain PROCEDURE: XR pelvis w/ 2 view LT hip: Encounter: Initial Comparison: None Findings: Nondisplaced fracture of the midportion of the left femoral neck. No additional acute fracture or dislocation seen. Mild degenerative changes in both hips. Pelvic phleboliths. Impression: Closed posttraumatic left femoral neck fracture. .
[2017-03-09] MEDS ORDERED: CEFAZOLIN 1 G INJECTION IVP ONE (08:52)
[2017-03-09] MEDS ORDERED: INFLUENZA VAC QIV 2017-18 (Fluarix*)(>=3yo) 0.5ml IM ONE (09:09)
[2017-03-09] MEDS ORDERED: TETANUS, DIPHTHERIA, a PERTUSSIS (Tdap) 0.5ml INJECTION IM ONE (09:09)
[2017-03-09] MEDS ORDERED: INFLUENZA VAC High Dose 2017-18 (Fluzone HD*) (>=65yo) 0.5ml IM ONE (09:24)
[2017-03-09] MEDS ORDERED: PNEUMOCOCCAL VAC ADMIN CHARGE INJ ONE (09:30)
[2017-03-09] MEDS ORDERED: Tdap VACCINE ADMINISTR CHARGE INJ ONE (09:30)
[2017-03-09] MEDS ORDERED: LIDOCAINE 1% (10mg/ml) 30ml SDV INJ ONE (09:49)
[2017-03-09] MEDS ORDERED: BUPIVACAINE 0.25% (2.5mg/ml) PF 30ml INJECTION ONE (09:49)
--- NOTE | 2017-03-09 09:53 | Anesthesia Preoperative Report ---
Anesthesia Preoperative Record - Date and Time Date: 03/09/17 Preoperative Diagnosis: Fractured left hip NPO Since Date: 03/08/17 NPO Since Time: 00:00 Allergies/Adverse Reactions: Allergies Allergy/AdvReac Type Severity Reaction Status Date / Time Sulfa (Sulfonamide Allergy Intermediate RASH Verified 03/09/17 09:15 Antibiotics) amoxicillin Allergy Unknown Verified 03/09/17 09:15 ciprofloxacin Allergy Unknown Verified 03/09/17 09:15 nitrofurantoin Allergy Unknown Verified 03/09/17 09:15 piroxicam Allergy Unknown Verified 03/09/17 09:15 omeprazole AdvReac Mild UPSET Verified 03/09/17 09:15 STOMACH simvastatin AdvReac Mild CAUSES Verified 03/09/17 09:15 WEAKNESS azithromycin AdvReac Unknown LOSS OF Verified 03/09/17 09:15 BALANCE ciprofloxacin HCl Allergy Unknown Uncoded 03/09/17 09:15 fluoxetine HCl Allergy Unknown Uncoded 03/09/17 09:15 Nitrofurantoin Macrocrystal Allergy Unknown Uncoded 03/09/17 09:15 Chlorpheniramine Polistirex AdvReac Mild DIZZINESS Uncoded 03/09/17 09:15 Hydrocodone Polistrx AdvReac Mild DIZZINESS Uncoded 03/09/17 09:15 meperidine HCl AdvReac Mild DIZZY Uncoded 03/09/17 09:15 omeprazole magnesium AdvReac Mild UPSET Uncoded 03/09/17 09:15 STOMACH - Vital Signs Vital Signs: Temperature 97.4 F 03/09/17 08:00 Pulse Rate 84 03/09/17 08:00 Respiratory Rate 20 03/09/17 08:00 Blood Pressure 171/91 H 03/09/17 08:00 Pulse Oximetry 94 03/09/17 08:00 Height and Weight: Height 1.83 m Weight 90 kg Body Mass Index 26.8 - Medications Inpatient Medications: Current Medications Acetaminophen (Tylenol) 325 - 650 mg PO Q5H PRN PRN Reason: Discomfort Hydrocodone Bitart/Acetaminophen ([place] 5/325) 1 tab PO Q6H PRN PRN Reason: Pain Cholecalciferol (Vit. D-3) 1,000 unit PO DAILY SIRISHA Colestipol HCl (Colestid) 1 g PO DAILY SIRISHA Cyanocobalamin (Vit. B-12) 1,000 mcg PO DAILY SIRISHA Docusate Sodium (Colace) 100 mg PO BID PRN Sodium Chloride (Normal Saline) 1,000 mls @ 100 mls/hr IV .Q10H SIRISHA Last Infusion: 03/09/17 02:40 Dose: 100 mls/hr Morphine Sulfate (Morphine Sulfate Inj) 2 - 4 mg IVP Q2H PRN PRN Reason: Pain Last Admin: 03/09/17 05:01 Dose: 2 mg Ondansetron HCl (Zofran) 4 mg IVP Q6H PRN PRN Reason: Nausea &/or vomiting Senna/Docusate Sodium (Senna Plus Tablet) 1 tab PO BID PRN PRN Reason: Constipation Sodium Chloride (Iv Flush) 10 - 80 ml IVF PRN PRN PRN Reason: Flushing Last Admin: 03/08/17 22:01 Dose: 10 ml Home Medications: Home Medications Medication Instructions Recorded Confirmed Type Colestipol [Colestid] 1 gm PO DAILY 03/08/17 03/08/17 History Vitamin B12 1 tab PO DAILY 03/08/17 03/08/17 History Vitamin D 1 tab PO DAILY 03/08/17 03/08/17 History Is Patient on Beta Toyin?: No - Medical History Respiratory: Reports: Sleep Apnea Cardiovascular: Reports: Coronary Artery Disease (CABG x 6 in 2001), Hypertension, High Cholesterol Neuro/Musculoskeletal: Reports: Other (russel santana historian. Obtained history from spouse.) Renal/Endocrine: Reports: Other (urinary retention) Other History: Reports: Cancer (CLL) - Surgical History Cardiac Surgeries/Treatments: Reports: Coronary Artery Bypass Graft (x6 2001) GI Surgery/Treatments: Reports: Cholecystectomy Anesthesia Reactions: None Hx Family Anesthesia Reaction: No History of Motion Sickness: No - Social History Smoking Status: Former smoker Hx Chewing Tobacco Use: No Second Hand Exposure: No Substance Use Type: does not use Alcohol Intake Frequency: does not drink - Pertinent Findings Laboratory: CBC and BMP 03/09/17 04:09 03/09/17 05:44 BMP 03/08/17 03/09/17 03/09/17 22:41 04:09 05:44 Sodium 146 H Cancelled 144 Potassium 4.0 Cancelled 4.2 Chloride 108 H Cancelled 111 H Carbon Dioxide 29 Cancelled 27 BUN 25.0 H Cancelled 21.0 H Creatinine 1.0 Cancelled 0.8 D Glucose 122 H Cancelled 123 H Calcium 8.9 Cancelled 8.3 L Cardiac Enzymes 03/08/17 Range/Units 22:41 Troponin I < 0.012 (0-0.12) ng/ml Liver Function 03/08/17 Range/Units 22:41 Total Bilirubin 0.40 (0.20-1.30) MG/DL AST 18 (17-59) U/L ALT 33 (21-72) U/L Alkaline Phosphatase 109 (38-126) U/L Albumin 3.8 (3.5-5.0) G/DL Urine 03/08/17 Range/Units 22:21 Urine Color Yellow (YELLOW) Urine Clarity Clear Urine pH 5.5 (5.0-8.0) Ur Specific [place] 1.025 (1.015-1.025) Urine Protein Negative (NEGATIVE) Urine Glucose (UA) Negative (NEGATIVE) EKG: Sinus Rhythm - Physical Exam Respiratory Exam: Present: lungs clear Cardiovascular Exam: Present: regular rate and rhythm - Airway Assessment Mallampati Score: II TMD: 3 Fingerbreadths Neck Extension: fair Teeth: chipped teeth/crowns Overall Assessment: no airway concerns - ASA ASA Score: 3 - Plan Anesthesia: General TIVA, General Inhalation Gases, Neuroaxial Regional/Trunk Block: Spinal - Discussion Discussion: Discussed risks/options/alternatives of anesthesia and questions answered. Patient consents. Nursing pain assessment noted. Present for Discussion: family member Attestation Statement: Prior to the delivery of any anesthetic medication, I examined the patient, developed the plan, obtained the patient's consent and discussed the risk and benefits of the procedure with the patient/guardian. - Additional Information Seen by Anesthesia: Yes
[2017-03-09] MEDS ORDERED: LR 1,000 ML IV SCH (10:00)
[2017-03-09] MEDS ORDERED: FentaNYL 100 MCG/2 ML INJECTION ONE (10:03)
[2017-03-09] MEDS ORDERED: KETAMINE 500 MG/10 ML INJECTION ONE (10:04)
[2017-03-09] MEDS ORDERED: MIDAZOLAM 2mg/2ml INJECTION ONE (10:05)
[2017-03-09] MEDS ORDERED: PROPOFOL 0 ML ONE (10:05)
[2017-03-09] MEDS ORDERED: PROPOFOL 500 MG/50 ML VIAL IV ONE (10:05)
[2017-03-09] MEDS ORDERED: PROPOFOL 20 ML ONE (10:09)
[2017-03-09] MEDS: NS 1,000 ML IV SCH ×2 (10:24→14:36)
[2017-03-09] MEDS ORDERED: EPHEDRINE 50mg/ml INJECTION ONE (10:40)
[2017-03-09] MEDS ORDERED: ONDANSETRON 4 MG/2 ML INJECTION IVP PRN (10:46)
[2017-03-09] MEDS ORDERED: HYDROMORPHONE 2 MG/ML INJECTION IVP PRN (10:46)
[2017-03-09] MEDS ORDERED: BUPIV 0.25% 30ml/LIDO 1% 30ml MIXTURE ID ONE (11:15)
--- NOTE | 2017-03-09 11:27 | Post Procedure Note ---
Date of Procedure: 03/09/17 Orthopedic Surgeon: Jimmy Orthopedic Assisting Surgeon: John Coleman Anesthesia: General TIVA, General Inhalation Gases, Neuroaxial Procedure: Procedures Operation Date: 03/09/17 14:00 Actual Procedures p Open Red Int Fix Hip W/Cannulated Screws (Left) - Tawanda Marquez MD Condition: Stable Disposition: PACU
--- NOTE | 2017-03-09 11:34 | Operative Note ---
- Procedure Side: left Preoperative Diagnosis: other (transcervical valgus impacted femoral neck fracture) Postoperative Diagnosis: Same as preoperative diagnosis. Operation: other (internal fixation of left hip fracture with cannulated screws) Surgeon: Carmen Marquez MD Nursing Agency Manager: John Coleman Complications: None. Anesthesia: General TIVA Estimated Blood Loss: See Anesthesia Record. Fluids: Please see Anesthesia Record. Description of Procedure: Mr. Ramos in his left hip were identified and marked in his hospital room. He was brought back to the operating suite and placed under general anesthesia. He was then transferred to the fracture table. Both feet were placed in well- padded traction boot. Left leg was placed into a neutral position without traction and the right leg was placed into extension. The left lower extremity was prepped and draped in the normal sterile fashion. Timeout was performed. Fluoroscopic imaging was used throughout the case. The skin was anesthetized with my local anesthesia. A 3 cm incision was made laterally dissection was carried through the IT band. 3 guidepins were then placed into the proximal femur. The first was placed into the inferior and central location the second 2 were placed superior posterior and superior anteriorly. The lateral cortex was overreamed. Then placed 2 100 mm screws and one 95 mm screw. All 3 with washers. All 3 screws achieved an excellent bite. Multiple fluoroscopic images were taken to ensure good hardware position. The wound was then thoroughly irrigated and the IT band was closed with #1 Vicryl. The subcutaneous tissues closed 2-0 Vicryl. The scleral skin was closed with a running 4-0 Monocryl and Dermabond. He was then allowed to awake from general anesthesia and taken to the recovery room under the care of anesthesia.
--- NOTE | 2017-03-09 13:24 | Remote Fluorsocopy Report ---
Indication: LT HIP FX PROCEDURE: RF hip LT 2 view: Encounter: Initial Comparison: Pelvis radiograph from today Findings: Two fluoroscopic spot images are submitted for interpretation. Images show the left femoral neck fracture. Impression: Fluoroscopy as above. Fluoroscopy time is 131 seconds. Fluoroscopy dose is 3250 mRad. .
[2017-03-09] MEDS: NOZIN NASAL SWAB NAS SCH ×2 (14:35→20:40)
[2017-03-09] MEDS: SALINE FLUSH 10ml SYRINGE IVF PRN (14:35)
--- NOTE | 2017-03-09 15:58 | Anesthesia Postoperative Note ---
- Date and Time Date: 03/09/17 Time: 15:57 - Status Patient Participated in Evaluation: Other (pt resting- family gives information) Vital Signs: Temperature 98.6 F 03/09/17 13:06 Pulse Rate 85 03/09/17 14:45 Respiratory Rate 20 03/09/17 14:45 Blood Pressure 168/82 H 03/09/17 14:45 Pulse Oximetry 94 03/09/17 14:45 Cardiovascular Function: Regular Pulse Mental Status: Lethargic (sleeping) Pain Intensity: 0 Hydration: Taking PO Fluids Complications During Recover: None Apparent - Follow-Up Instructions Instructions: Per Surgeon
[2017-03-09] MEDS ORDERED: KETOROLAC 15 MG/ML INJECTION IM ONE (16:33)
[2017-03-09] MEDS ORDERED: KETOROLAC 15 MG/ML INJECTION IVP ONE (16:33)
[2017-03-09] MEDS ORDERED: INFLUENZA VAC. INJ. ADMIN CHARGE INJ ONE (17:00)
[2017-03-09] MEDS: CEFAZOLIN 1 G in NS 100 ML IV SCH (17:45)
[2017-03-09] MEDS: ENOXAPARIN 40 MG/0.4 ML INJECTION SQ SCH (20:40)
[2017-03-09] MEDS: HYDROCODONE/APAP 5mg/325mg TABLET PO PRN (20:40)
[2017-03-10] MEDS: NS 1,000 ML IV SCH ×5 (01:29→22:47)
[2017-03-10] MEDS: CEFAZOLIN 1 G in NS 100 ML IV SCH (01:30)
[2017-03-10] MEDS: NOZIN NASAL SWAB NAS SCH ×3 (04:16→21:10)
[2017-03-10] MEDS: HYDROCODONE/APAP 5mg/325mg TABLET PO PRN ×3 (04:26→21:10)
[2017-03-10] MEDS: CYANOCOBALAMIN (B-12) 500mcg TABLET PO SCH (08:45)
[2017-03-10] MEDS: COLESTIPOL 1 G TABLET PO SCH (08:46)
--- NOTE | 2017-03-10 09:46 | Progress Note ---
- Date 03/10/17 Subjective: The patient was seen at 8:50 AM. He is sitting in bed enjoying his oatmeal. He remains pleasantly confused he thought it was supper time when they brought his oatmeal in. He denies any pain in his hip. In discussing his care with nursing, his blood pressure is better today, he did receive 1 dose of Toradol yesterday as well as pain medication. It appears he has not had a bowel movement since admission. Physical therapy will be in to work with him later this afternoon. Objective Vital signs: Temperature 98.6 F 03/10/17 08:45 Pulse Rate 71 03/10/17 08:45 Respiratory Rate 20 03/10/17 08:45 Blood Pressure 161/85 H 03/10/17 08:45 Pulse Oximetry 93 03/10/17 08:45 Height/Weight/BMI: Height 6 ft Weight 198 lb 6.656 oz Body Mass Index 26.8 - Additional findings Additional findings: In general, the patient is alert and confused, he is hard of hearing, he is cooperative with exam, and in no respiratory distress. HEENT: Head is atraumatic, normocephalic, mucous membranes are moist and pink. Lungs: Clear to auscultation without wheezes, crackles or rhonchi CV: Regular rate and rhythm without murmur Abdomen: Distended but nontender, bowel sounds are present, there is no guarding no rebound. Extremities: No clubbing, no cyanosis, no edema. Skin: Warm and dry no sign of rash Neuro: Patient is alert Results - Labs CBC & Chem 7: 03/10/17 04:30 03/10/17 04:30 Microbiology Results: Microbiology 03/08/17 22:21 Urine, Voided (Cc/notcc) Urine Culture - Preliminary Gram Negative Amol Assessment and Plan (1) Nondisplaced fracture of neck of left femur Current visit: Yes Status: Acute 03/09/17 00:58 this is non syncopal event. pre op labs are reasuring. patient does have a UTI which we will treat. from a pre op perspective. there are no indications of unstable cardiac status. having stated this he does have cardiac disease. he is not a good historian and he has limited METS. he is aleast a mod risk for surgery. The question does he need to see cardiology prior to surgery? From my perspective he is okay for surgery with close post op monitoring. Family needs to be aware of risk for cardiac event perioperatively. (2) CLL (chronic lymphocytic leukemia) Current visit: Yes Status: Acute 03/09/17 01:00 currently not treated and not exacerbated. no additional concerns regarding this at this time (3) Coronary artery disease Current visit: Yes Status: Acute 03/09/17 01:00 patient is s/p CABG. med list would not inform cardiac meds currently. Hard to belive. have pharmacy confirm this in am. If patient is on b manasa he needs this prior to surgery per SKIP protocol. Otherwise would be reasonable to place on telemetry post op. (4) Dementia Current visit: Yes Status: Acute 03/09/17 01:01 patient with altered cognition of uniown significance. protective of patient. to be aware of post op. aware that heis Hard of hearing which contributes. to his underlying congnition. Assessment and Plan: Impression: Nondisplaced fracture of the neck of the left femur-status post internal fixation of left hip fracture with cannulated screws on 03/09/2017 Hypertension presumed secondary to pain, the patient was not on antihypertensives prior to admission, and discussion with Dr. García he would prefer to avoid them if possible. 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 We'll recheck lab in the morning. Overall he is recovering well. Hospital Course Summary Disclaimer: The visit summary below is not to be considered part of the above Progress Note. Impression: Nondisplaced fracture of the neck of the left femur-status post internal fixation of left hip fracture with cannulated screws on 03/09/2017 Hypertension presumed secondary to pain, the patient was not on antihypertensives prior to admission, and discussion with Dr. García he would prefer to avoid them if possible. 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 We'll recheck lab in the morning. Overall he is recovering well.
--- NOTE | 2017-03-10 13:55 | Discharge Instructions ---
Discharge Plan - Med Rec/Dispo Referrals/Follow Up: Ethan Yanez PA [Physician Template Layout Worker] - 03/26/17 1:00 pm Prescriptions: No Action Colestipol [Colestid] 1 gm PO DAILY Vitamin D 1 tab PO DAILY Vitamin B12 1 tab PO DAILY
--- NOTE | 2017-03-10 17:13 | Orthopedic Progress Note ---
Date: Subjective/Severity of Illness: Mr Ramos was seen early this AM. He is resting comfortably and has not been up with PT yet. Denies specific complaints. Pain is controlled. Orthopedic Objective PO Vital signs: Temperature 97.2 F 03/10/17 15:37 Pulse Rate 61 03/10/17 15:37 Respiratory Rate 20 03/10/17 15:37 Blood Pressure 121/67 03/10/17 15:37 Pulse Oximetry 91 03/10/17 15:37 Height and Weight: Height 6 ft Weight 197 lb 5.019 oz Body Mass Index 26.8 - Constitutional General Appearance: Present: alert, no acute distress - Respiratory Exam Present: non-labored - Cardiovascular Exam Present: pedal pulses intact - Surgical Site Incision: dressing intact, no drainage - Integumentary Exam Present: pink, warm, dry - Neurological Exam Present: no deficits - Psychiatric Exam Present: alert - Labs Result Diagrams: 03/10/17 04:30 03/10/17 04:30 Abnormal lab results 03/10/17 03/10/17 Range/Units 04:30 04:30 WBC 12.9 H (4.5-11.0) T/MM3 RBC 4.08 L (4.50-5.90) M/MM3 MCV 101.5 H (80-100) UM3 MCH 34.3 H (26-34) UUG Plt Count 104 L (130-400) T/MM3 Lymph % (Auto) 64.2 H (23-45) % Lymph # (Auto) 8.3 H (1-4.8) T/MM3 Chloride 108 H (98-107) MEQ/L Calcium 8.0 L (8.4-10.2) MG/DL Total Protein 5.8 L (6.3-8.2) G/DL Albumin 3.0 L (3.5-5.0) G/DL H & H 03/08/17 03/09/17 03/10/17 Range/Units 22:41 04:09 04:30 Hgb 15.3 14.9 14.0 (13.5-17.5) GM/DL Hct 44.9 42.9 41.4 (41-53) % Coagulation 03/08/17 Range/Units 22:41 INR 1.01 (0.99-1.21) Orthopedic Assessment and Plan (1) Nondisplaced fracture of neck of left femur Status: Acute Assessment and Plan: Cannulated screw fixation left hip 03/09 Dr Marquez. Mobilize with PT / OT , WBAT. Lovenox x 30 days. SCDs for added coverage. Hospitalist to manage medically. - Anticoagulation Therapy Anticoagulation: Lovenox 40 mg SQ Daily x 30 days from day of surgery Hospital Course Summary Disclaimer: The visit summary below is not to be considered part of the above Progress Note.
[2017-03-10] MEDS: ENOXAPARIN 40 MG/0.4 ML INJECTION SQ SCH (21:11)
[2017-03-10] MEDS: MORPHINE SULFATE 4mg INJECTION IVP PRN (23:21)
[2017-03-11] MEDS: MORPHINE SULFATE 4mg INJECTION IVP PRN (03:18)
[2017-03-11] MEDS: NS 1,000 ML IV SCH ×4 (03:38→18:31)
[2017-03-11] MEDS: NOZIN NASAL SWAB NAS SCH ×3 (06:47→20:25)
[2017-03-11] MEDS: CYANOCOBALAMIN (B-12) 500mcg TABLET PO SCH (08:17)
[2017-03-11] MEDS: COLESTIPOL 1 G TABLET PO SCH (08:17)
[2017-03-11] MEDS: SENNA + DOCUSATE TABLET PO PRN (08:18)
[2017-03-11] MEDS: DOCUSATE SODIUM 100 MG CAPSULE PO PRN (08:18)
[2017-03-11] MEDS: HYDROCODONE/APAP 5mg/325mg TABLET PO PRN (08:18)
--- NOTE | 2017-03-11 11:54 | Progress Note ---
<Kayla Kelly V - Last Filed: 03/11/17 11:49> - Date 03/11/17 Subjective: Bk is seen today with his family at the his side. Family reports he was confused this morning initially when they came to visit and did not recognize their son. Patient this is secondary to [place] use. Otherwise Bk is without complaints. He denies pain in his left hip on examination. He is comfortably breathing on room air without respiratory distress. Currently eating a banana visiting with grandson. Blood pressure this morning 160/75. Objective Vital signs: Temperature 97.9 F 03/11/17 07:13 Pulse Rate 85 03/11/17 07:13 Respiratory Rate 16 03/11/17 07:13 Blood Pressure 160/75 H 03/11/17 07:13 Pulse Oximetry 93 03/11/17 07:13 Height/Weight/BMI: Height 1.83 m Weight 90.1 kg Body Mass Index 26.8 - Constitutional Present: well nourished, well developed - Routine HEENT Exam Eye: Present: EOMI ENT: Present: mucous membranes moist, dentition normal - Routine Respiratory Exam Present: CTA bilaterally. Absent: wheezes - Routine Cardiovascular Exam Present: RRR, S1, S2. Absent: murmur - Routine Abdominal Exam Present: soft, normoactive bowel sounds, non distended. Absent: tenderness - Routine Extremities Exam Present: no edema, pulses intact - Routine Skin Exam Present: intact, dry, warm - Routine Neurological Exam Present: alert, CN II-XII intact - Routine Lymphatic Exam Lymphatic: Absent: adenopathy - Routine Psychiatric Exam Present: cooperative Results - Labs CBC & Chem 7: 03/11/17 09:35 03/11/17 09:35 Microbiology Results: Microbiology 03/08/17 22:21 Urine, Voided (Cc/notcc) Urine Culture - Final Enterobacter aerogenes Assessment and Plan (1) Nondisplaced fracture of neck of left femur Current visit: Yes Status: Acute 03/09/17 00:58 this is non syncopal event. pre op labs are reasuring. patient does have a UTI which we will treat. from a pre op perspective. there are no indications of unstable cardiac status. having stated this he does have cardiac disease. he is not a good historian and he has limited METS. he is aleast a mod risk for surgery. The question does he need to see cardiology prior to surgery? From my perspective he is okay for surgery with close post op monitoring. Family needs to be aware of risk for cardiac event perioperatively. (2) CLL (chronic lymphocytic leukemia) Current visit: Yes Status: Acute 03/09/17 01:00 currently not treated and not exacerbated. no additional concerns regarding this at this time (3) Coronary artery disease Current visit: Yes Status: Acute 03/09/17 01:00 patient is s/p CABG. med list would not inform cardiac meds currently. Hard to belive. have pharmacy confirm this in am. If patient is on b manasa he needs this prior to surgery per SKIP protocol. Otherwise would be reasonable to place on telemetry post op. (4) Dementia Current visit: Yes Status: Acute 03/09/17 01:01 patient with altered cognition of uniown significance. protective of patient. to be aware of post op. aware that heis Hard of hearing which contributes. to his underlying congnition. Assessment and Plan: Impression: Nondisplaced fracture of the neck of the left femur-status post internal fixation of left hip fracture with cannulated screws on 03/09/2017 Hypertension presumed secondary to pain, the patient was not on antihypertensives prior to admission, and discussion with Dr. García he would prefer to avoid them if possible. 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 May also consider adding tramadol as opposed to [place] as this may have decreased narcotic affect. Postoperative hemoglobin remained stable at 13.7 Patient will need 30 days of Lovenox subcutaneous for postoperative anticoagulation. Awaiting PT and OT evaluation tomorrow morning to give safety recommendations. Patient resides independently at home with . questions if patient possibly needs inpatient rehabilitation versus SNU Hospital Course Summary Disclaimer: The visit summary below is not to be considered part of the above Progress Note. Hospital Course: 03/11/17 Plan Will change to scheduled Tylenol every 6 hours to see if this controls his pain in attempt to avoid narcotic use as this may contribute to encephalopathy. May also consider adding tramadol as opposed to [place] as this may have decreased narcotic affect. Postoperative hemoglobin remained stable at 13.7 Patient will need 30 days of Lovenox subcutaneous for postoperative anticoagulation. Awaiting PT and OT evaluation tomorrow morning to give safety recommendations. Patient resides independently at home with . questions if patient possibly needs inpatient rehabilitation versus SNU <Justin Sánchez - Last Filed: 03/11/17 13:48> - Date 03/11/17 Objective Vital signs: Temperature 97.4 F 03/11/17 11:55 Pulse Rate 76 03/11/17 11:55 Respiratory Rate 16 03/11/17 11:55 Blood Pressure 133/85 03/11/17 11:55 Pulse Oximetry 96 03/11/17 11:55 Height/Weight/BMI: Height 1.83 m Weight 90.1 kg Body Mass Index 26.8 Results - Labs CBC & Chem 7: 03/11/17 09:35 03/11/17 09:35 Microbiology Results: Microbiology 03/08/17 22:21 Urine, Voided (Cc/notcc) Urine Culture - Final Enterobacter aerogenes Assessment and Plan Assessment and Plan: Patient was visited while sitting next to his bed. ABIDA Kelly and I went together. Family was also present. We discussed options for care. Family would like him to go to an inpatient rehabilitation if possible. He does ambulate around the home with a walker normally. Contusion may have been related to narcotic use. We will start Tylenol as a scheduled medication and hold narcotics at this point. Patient is not complaining of any pain at this time. I evaluated the patient with Kayla during and agree with her above assessment and plan. We did come to this is a joint plan. Plan Will change to scheduled Tylenol every 6 hours to see if this controls his pain in attempt to avoid narcotic use as this may contribute to encephalopathy. May also consider adding tramadol as opposed to [place] as this may have decreased narcotic affect. Postoperative hemoglobin remained stable at 13.7 Patient will need 30 days of Lovenox subcutaneous for postoperative anticoagulation. Awaiting PT and OT evaluation tomorrow morning to give safety recommendations. Patient resides independently at home with . questions if patient possibly needs inpatient rehabilitation versus SNU Justin Sánchez M.D. Hospital Course Summary Disclaimer: The visit summary below is not to be considered part of the above Progress Note.
[2017-03-11] MEDS: ACETAMINOPHEN 500 MG TABLET PO SCH ×3 (11:59→23:25)
[2017-03-11] MEDS: ENOXAPARIN 40 MG/0.4 ML INJECTION SQ SCH (20:25)
[2017-03-12] MEDS: NS 1,000 ML IV SCH ×2 (04:19→08:00)
[2017-03-12] MEDS: NOZIN NASAL SWAB NAS SCH ×2 (05:43→11:55)
[2017-03-12] MEDS: ACETAMINOPHEN 500 MG TABLET PO SCH ×2 (05:43→11:44)
[2017-03-12] MEDS: HYDROCODONE/APAP 5mg/325mg TABLET PO PRN (07:47)
--- NOTE | 2017-03-12 07:55 | Orthopedic Progress Note ---
Date: Subjective/Severity of Illness: Mr Ramos denies much trouble with his hip. Min complaints of pain. He is concerned about not having a BM in 3 days. No other specific complaints. Orthopedic Objective PO Vital signs: Temperature 97.9 F 03/12/17 04:11 Pulse Rate 71 03/12/17 04:11 Respiratory Rate 20 03/12/17 04:11 Blood Pressure 162/84 H 03/12/17 04:11 Pulse Oximetry 95 03/12/17 04:11 Height and Weight: Height 6 ft Weight 198 lb 10.184 oz Body Mass Index 26.8 - Constitutional General Appearance: Present: alert, no acute distress - Respiratory Exam Present: non-labored - Cardiovascular Exam Present: pedal pulses intact - Abdominal Exam Absent: tenderness - Surgical Site Incision: dressing intact, no drainage - Integumentary Exam Present: pink, warm, dry - Neurological Exam Present: no deficits - Psychiatric Exam Present: alert - Labs Result Diagrams: 03/12/17 03:55 03/12/17 03:55 Abnormal lab results 03/11/17 03/11/17 03/12/17 Range/Units 09:35 09:35 03:55 WBC 12.5 H 13.0 H (4.5-11.0) T/MM3 RBC 4.01 L 3.71 L (4.50-5.90) M/MM3 Hgb 12.6 L (13.5-17.5) GM/DL Hct 39.8 L 37.0 L (41-53) % MCH 34.2 H (26-34) UUG Plt Count 100 L 103 L (130-400) T/MM3 Neut % (Auto) 27.0 L (33-66) % Lymph % (Auto) 62.3 H 69.5 H (23-45) % Lymph # (Auto) 7.8 H 9.1 H (1-4.8) T/MM3 Potassium (3.6-5) MEQ/L Chloride 109 H (98-107) MEQ/L Creatinine 0.7 L (0.8-1.5) MG/DL Glucose 120 H (75-110) MG/DL Calcium 7.9 L (8.4-10.2) MG/DL Total Protein (6.3-8.2) G/DL Albumin (3.5-5.0) G/DL Albumin/Globulin Ratio (1.1-2.2) RATIO 03/12/17 Range/Units 03:55 WBC (4.5-11.0) T/MM3 RBC (4.50-5.90) M/MM3 Hgb (13.5-17.5) GM/DL Hct (41-53) % MCH (26-34) UUG Plt Count (130-400) T/MM3 Neut % (Auto) (33-66) % Lymph % (Auto) (23-45) % Lymph # (Auto) (1-4.8) T/MM3 Potassium 3.5 L (3.6-5) MEQ/L Chloride 111 H (98-107) MEQ/L Creatinine 0.7 L (0.8-1.5) MG/DL Glucose (75-110) MG/DL Calcium 7.8 L (8.4-10.2) MG/DL Total Protein 5.3 L (6.3-8.2) G/DL Albumin 2.7 L (3.5-5.0) G/DL Albumin/Globulin Ratio 1.0 L (1.1-2.2) RATIO H & H 03/08/17 03/09/17 03/10/17 Range/Units 22:41 04:09 04:30 Hgb 15.3 14.9 14.0 (13.5-17.5) GM/DL Hct 44.9 42.9 41.4 (41-53) % 03/11/17 03/12/17 Range/Units 09:35 03:55 Hgb 13.7 12.6 L (13.5-17.5) GM/DL Hct 39.8 L 37.0 L (41-53) % Coagulation 03/08/17 Range/Units 22:41 INR 1.01 (0.99-1.21) Orthopedic Assessment and Plan (1) Nondisplaced fracture of neck of left femur Status: Acute Assessment and Plan: Cannulated screw fixation left hip 03/09 Dr Marquez. Mobilize with PT / OT , WBAT. Lovenox x 30 days. SCDs for added coverage. Hospitalist to manage medically. Hospital Course Summary Disclaimer: The visit summary below is not to be considered part of the above Progress Note. Hospital Course: 03/11/17 Plan Will change to scheduled Tylenol every 6 hours to see if this controls his pain in attempt to avoid narcotic use as this may contribute to encephalopathy. May also consider adding tramadol as opposed to [place] as this may have decreased narcotic affect. Postoperative hemoglobin remained stable at 13.7 Patient will need 30 days of Lovenox subcutaneous for postoperative anticoagulation. Awaiting PT and OT evaluation tomorrow morning to give safety recommendations. Patient resides independently at home with . questions if patient possibly needs inpatient rehabilitation versus SNU
[2017-03-12] MEDS: COLESTIPOL 1 G TABLET PO SCH (07:59)
[2017-03-12] MEDS: SENNA + DOCUSATE TABLET PO PRN (07:59)
[2017-03-12] MEDS: CYANOCOBALAMIN (B-12) 500mcg TABLET PO SCH (07:59)
[2017-03-12] MEDS: DOCUSATE SODIUM 100 MG CAPSULE PO PRN (07:59)
[2017-03-12 08:15] VITALS: RESP 16
--- NOTE | 2017-03-12 11:26 | Discharge Instructions ---
Discharge Plan - Med Rec/Dispo Referrals/Follow Up: Ethan Yanez PA [Physician Rap Artist] - 03/26/17 1:00 pm Niranjan García MD [Family Provider] - (Follow up in 1 week. Check CBC and BMP in 1 week) Additional Instructions: Take Keflex 3 times a day for 7 days for treatment of urinary tract infection Prescriptions: New Enoxaparin Sodium [Lovenox] 40 mg SQ Q24H 28 Days #28 syringe Milk of Magnesia [Mom] 30 ml PO DAILY PRN udc PRN Reason: Constipation Senna + Docusate [Senna Plus Tablet] 1 tab PO BID PRN tablet PRN Reason: Constipation Cyanocobalamin (B-12) [Vit. B-12] 1,000 mcg PO DAILY tablet CephALEXin [Keflex] 500 mg PO Q8HR 7 Days capsule Docusate Sodium [Colace] 100 mg PO BID PRN capsule PRN Reason: Constipation Continue Colestipol [Colestid] 1 gm PO DAILY Vitamin D 1 tab PO DAILY Vitamin B12 1 tab PO DAILY Discharge Instructions/Outpatient Orders: Provider Discharge Instructions Location: Determined By Patient - Disposition 03 To SNU Not [facility] ([facility])
--- NOTE | 2017-03-12 11:41 | Discharge Summary ---
<Kayla Kelly V - Last Filed: 03/12/17 11:38> Discharge Information Date of admission: 03/08/17 22:15 Anticipated date of discharge: 03/12/17 Attending Physician: Osvaldo Minaya MD Primary care physician: Niranjan García MD Consults: Dr Marquez- orthopedic evaluation and treatment - Discharge Diagnosis (1) Nondisplaced fracture of neck of left femur Status: Acute (2) CLL (chronic lymphocytic leukemia) Status: Acute (3) Coronary artery disease Status: Acute (4) Dementia Status: Acute Discharge Diagnosis: Nondisplaced fracture of the neck of the left femur-status post internal fixation of left hip fracture with cannulated screws on 03/09/2017 Hypertension presumed secondary to pain, the patient was not on antihypertensives prior to admission, and discussion with Dr. García he would prefer to avoid them if possible. 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 Marquez - Laboratory Labs: 03/12/17 03:55 03/12/17 03:55 - Microbiology Microbiology 03/08/17 22:21 Urine Culture - Enterobacter aerogenes - Radiology Radiology: 03/08/17-pelvic [id number] fracture of the left femoral neck 03/08/17-chest x-ray-no acute cardiopulmonary abnormality - Pathology None History of Present Illness HPI: This is a 86 y/o male with very limited gait who ambulates with a walker. The patient was in his garage sitting in a chair and decided to get up without his 's assistance and fell landing on his left hip. The patient presents to the ED and is found to have an impacted left femoral neck fracture. The patient has a historyof CAD with previous CABG. The patient has undescribed dementia per and is not a good historian. Per the his level of activity is limitied but no change. no pnd, no orthopnea. the patient does not demonstrate many METS on a daily basis chronically. At this time the patient is to be admitted for surgical repair of his fractured hip. Objective Vital signs: Temperature 96.2 F L 03/12/17 08:00 Pulse Rate 81 03/12/17 08:00 Respiratory Rate 16 03/12/17 08:00 Blood Pressure 160/96 H 03/12/17 08:00 Pulse Oximetry 97 03/12/17 08:00 Height/Weight/BMI: Height 1.83 m Weight 94 kg Body Mass Index 26.8 - Constitutional Present: no acute distress, well nourished, well developed - Routine HEENT Exam Eye: Present: EOMI ENT: Present: mucous membranes moist, dentition normal - Routine Respiratory Exam Present: CTA bilaterally. Absent: wheezes - Routine Cardiovascular Exam Present: RRR, S1, S2. Absent: murmur - Routine Abdominal Exam Present: soft, normoactive bowel sounds, non distended. Absent: tenderness - Routine Extremities Exam Present: pulses intact Comments: Postop pain in the left hip - Routine Skin Exam Present: intact, dry, warm - Routine Neurological Exam Present: alert, CN II-XII intact Pleasantly confused - Routine Lymphatic Exam Lymphatic: Absent: adenopathy - Routine Psychiatric Exam Present: normal affect, cooperative Hospital Course This is a general summary of the patient's hospital course. For more details refer to the complete medical record. 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 García, Dr. Marquez, the patient and his , he is medically cleared for surgery after reviewing his lab work, EKG and chest x- ray. Toes of his previous cardiac history he has at increased risk of a cardiac event perioperatively but given the urgency of the need for surgery, surgery should not be delayed. We'll give the patient a Tdap and flu vaccine. The patient has no signs or symptoms of a urinary tract infection, and does not require antibiotics for his UA His white blood cell count is elevated secondary to his CLL and does not require treatment at this time. 03/10/17- continue Physical therapy. Nursing will work on the patient's constipation, meds as needed. Awaiting urine culture results. Following labs. 03/11/17 Plan Will change to scheduled Tylenol every 6 hours to see if this controls his pain in attempt to avoid narcotic use as this may contribute to encephalopathy. May also consider adding tramadol as opposed to [place] as this may have decreased narcotic affect. Postoperative hemoglobin remained stable at 13.7 Patient will need 30 days of Lovenox subcutaneous for postoperative anticoagulation. Awaiting PT and OT evaluation tomorrow morning to give safety recommendations. Patient resides independently at home with . questions if patient possibly needs inpatient rehabilitation versus SNU 03/12/27- Discharge Bk is seen and examined today with his at bedside. Overall he is without complaints. He is currently breathing on room air without evidence of distress. His left hip pain is minimal and appears to be treated well with scheduled Tylenol overnight. No further episodes of acute confusion. feels that his mental status is at baseline this morning. Urine culture results reviewed, positive for Enterobacter, given leukocytosis. We will go ahead and treat him with Keflex 7 days. He will also need to continue on Lovenox subcutaneous daily for postoperative DVT prophylaxis for 20 additional days, with the last dose being 04/09/17. She is instructed to follow-up with orthopedic team as well as PCP, Dr. García. Patient was accepted by [facility] for skilled admission. is hopeful that he will be able to return home independently with her following rehabilitation. Time spent with patient: discharge greater than 30 minutes Discharge Plan - Med Rec/Dispo Referrals/Follow Up: Ethan Yanez PA [Physician Welt Edge Rounder] - 03/26/17 1:00 pm Niranjan García MD [Family Provider] - (Follow up in 1 week. Check CBC and BMP in 1 week) Minauvsandeep Instructions: [facility] Fracture Instructions, [facility] Postop Instructions Additional Instructions: Take Keflex 3 times a day for 7 days for treatment of urinary tract infection Prescriptions: New Enoxaparin Sodium [Lovenox] 40 mg SQ Q24H 28 Days #28 syringe Milk of Magnesia [Mom] 30 ml PO DAILY PRN udc PRN Reason: Constipation Senna + Docusate [Senna Plus Tablet] 1 tab PO BID PRN tablet PRN Reason: Constipation Cyanocobalamin (B-12) [Vit. B-12] 1,000 mcg PO DAILY tablet Acetaminophen 500 mg PO Q6H #30 capsule CephALEXin [Keflex] 500 mg PO Q8HR 7 Days capsule Docusate Sodium [Colace] 100 mg PO BID PRN capsule PRN Reason: Constipation Continue Colestipol [Colestid] 1 gm PO DAILY Vitamin D 1 tab PO DAILY Vitamin B12 1 tab PO DAILY Discharge Instructions/Outpatient Orders: Provider Discharge Instructions Location: Determined By Patient - Disposition 03 To U Not [facility] [place] (SNF) <Osvaldo Minaya - Last Filed: 03/12/17 12:19> Discharge Information Date of admission: 03/08/17 22:15 Attending Physician: Osvaldo Minaya MD Primary care physician: Niranjan García MD Consults: 03/12/17 08:14 Physician Consult [CONS] Routine Consulting Provider: Jazzy Lucas Reason For Exam: cont care Ordering Provider has Notified Shop Coordinator: Yes 03/12/17 08:19 Physician Consult [CONS] Routine Consulting Provider: Ihsan Pierre Reason For Exam: cont care Ordering Provider has Notified Shop Coordinator: Yes - Discharge Diagnosis (1) Nondisplaced fracture of neck of left femur Status: Acute (2) CLL (chronic lymphocytic leukemia) Status: Acute (3) Coronary artery disease Status: Acute (4) Dementia Status: Acute - Laboratory Labs: 03/12/17 03:55 03/12/17 03:55 - Microbiology Microbiology 03/08/17 22:21 Urine, Voided (Cc/notcc) Urine Culture - Final Enterobacter aerogenes Objective Vital signs: Temperature 96.7 F L 03/12/17 12:00 Pulse Rate 71 03/12/17 12:00 Respiratory Rate 16 03/12/17 12:00 Blood Pressure 147/78 H 03/12/17 12:00 Pulse Oximetry 96 03/12/17 12:00 Height/Weight/BMI: Height 1.83 m Weight 94 kg Body Mass Index 26.8 Hospital Course This is a general summary of the patient's hospital course. For more details refer to the complete medical record. Discharge Plan - Med Rec/Dispo - Attestation Attestation Narrative: 03/12/17 12:16 I have independently interviewed and examined pt prior to discharge. Chart reviewed. Case discussed with my INSPECTOR FIBROUS WALLBOARD. Care plan developed with my supervision; agree with above. Doing well today. Tolerated therapy-able to walk in halls with assistance. Pain stable. Mentation to baseline. Breathing well. Lungs: clear bilaterally, no distress on RA. CV: regular MSE: awake alert Plan: Medically stable for discharge to group home care. See orders for details.
--- NOTE | 2017-03-12 11:49 | Extended Care Facility Orders ---
Admission Orders Admit to:: Care Home Allergies/Adverse Reactions: Allergies Sulfa (Sulfonamide Antibiotics) Allergy (Intermediate, Verified 03/09/17 09:15) RASH amoxicillin Allergy (Unknown, Verified 03/09/17 09:15) ciprofloxacin Allergy (Unknown, Verified 03/09/17 09:15) nitrofurantoin Allergy (Unknown, Verified 03/09/17 09:15) piroxicam Allergy (Unknown, Verified 03/09/17 09:15) omeprazole Adverse Reaction (Mild, Verified 03/09/17 09:15) UPSET STOMACH pravastatin Adverse Reaction (Mild, Verified 03/11/17 17:45) Dizziness simvastatin Adverse Reaction (Mild, Verified 03/09/17 09:15) CAUSES WEAKNESS azithromycin Adverse Reaction (Unknown, Verified 03/09/17 09:15) LOSS OF BALANCE naproxen Adverse Reaction (Verified 03/11/17 17:45) ciprofloxacin HCl Allergy (Unknown, Uncoded 03/09/17 09:15) fluoxetine HCl Allergy (Unknown, Uncoded 03/09/17 09:15) Nitrofurantoin Macrocrystal Allergy (Unknown, Uncoded 03/09/17 09:15) Chlorpheniramine Polistirex Adverse Reaction (Mild, Uncoded 03/09/17 09:15) DIZZINESS Hydrocodone Polistrx Adverse Reaction (Mild, Uncoded 03/09/17 09:15) DIZZINESS meperidine HCl Adverse Reaction (Mild, Uncoded 03/09/17 09:15) DIZZY omeprazole magnesium Adverse Reaction (Mild, Uncoded 03/09/17 09:15) UPSET STOMACH Admitting Diagnosis: Fractured left hip Admitting Physician: Osvaldo Minaya MD Attending Physician: Osvaldo Minaya MD Code Status: Full code Anticiapted Length of Stay: 30 days or less Rehab Potential: good Rehab Prognosis: good May use Facility Protocol or Standing Orders: Yes May have flu vaccine: Yes Evaluations/Treatment: PT, OT Care Home Certification: I certify that SNF services are required to be given on an Inpatient basis because of the patients need for fpc care on a continuing basis for the condition(s) for which he/she received inpatient hospital services prior to his/her transfer to the SNF. SNF inpatient care is necessary for the following reasons Indication for Care Home: Other (PT,OT) - Additional Information In Event of Arrest: Start CPR,call 911,send patient to the ER Referrals: Ethan Yanez PA [Physician Bpm Architect] - 03/26/17 1:00 pm Niranjan García MD [Family Provider] - (Follow up in 1 week. Check CBC and BMP in 1 week)
[2017-03-12 12:07] VITALS: BP 147/78; PULSE 71; TEMP 96.7; O2SAT 96
== END 2017-03-12 13:08 | DRG 481 ==
LOC: ED 20:26 → SUATTDRO 22:15 → SRG 22:15
PROVIDERS: ADMIT Emergency Medicine; ATTEND Hospitalist